=== PATIENT | female | born 1930 | race Caucasian/White ===

== ENCOUNTER 2016-11-24 15:54 | Inpatient (IN) | payer MEDICARE, OTHER ==
[~2016-11-24] VITALS: Ht 152.4 cm; Wt 37.9 kg
[2016-11-24 19:53] LABS: ADD SCAN DIFF NO
[2016-11-24 19:56] LABS: BASOPHILS % 0.3 % (0.0-2.0); EOSINOPHILS # 0.1 10^3/ul (0.0-0.5); EOSINOPHILS % 1.1 % (0.0-7.0); HEMOGLOBIN 10.8 g/dl (12.0-16.0); LYMPHOCYTES # 2.8 10^3/ul (0.8-2.9); LYMPHOCYTES % 43.2 % (15.0-51.0); MEAN CORPUSCULAR HEMOGLOBIN 29.7 pg (29.0-33.0); MEAN CORPUSCULAR HGB CONC 30.9 g/dl (32.0-37.0); MEAN CORPUSCULAR VOLUME 96.2 fl (82.0-101.0); MEAN PLATELET VOLUME 9.3 fl (7.4-10.4); MONOCYTE # 0.4 10^3/ul (0.3-0.9); MONOCYTES % 5.9 % (0.0-11.0); NEUTROPHIL # 3.2 10^3/ul (1.6-7.5); NEUTROPHILS % 49.3 % (39.0-77.0); PLATELET COUNT 288 10^3/UL (140-415); RED BLOOD COUNT 3.64 10^6/ul (4.20-5.40); RED CELL DISTRIBUTION WIDTH 16.2 % (11.5-14.5); WHITE BLOOD COUNT 6.5 10^3/ul (4.8-10.8)
[2016-11-24] MEDS ORDERED: LEVO25TA53 PO (19:57)
[2016-11-24] MEDS ORDERED: AMLO5TAB4 PO (19:58)
[2016-11-24] MEDS ORDERED: ATEN-51 PO (19:58)
[2016-11-24] MEDS ORDERED: SULF1TAB31 PO (20:03)
[2016-11-24 20:08] LABS: INR 1.04; PROTIME 13.6 Sec (12.2-14.2); PT RATIO 1.1
[2016-11-24 20:12] LABS: ALBUMIN 4.1 g/dl (3.3-4.9); CALCIUM 9.2 mg/dl (8.4-10.2); CREATININE 1.98 mg/dl (0.44-1.00); TOTAL PROTEIN 8.2 g/dl (6.1-8.1)
--- NOTE | 2016-11-24 20:14 | RADRPT ---
PROCEDURE: XR Chest. CLINICAL INDICATION: Abdominal pain TECHNIQUE: Chest PA and lateral COMPARISON: 04/18/2007 FINDINGS: The mediastinal structures are unremarkable. There is calcification of the thoracic aorta (consiste nt with atherosclerosis). The heart is normal in size and configuration. The pulmonary vascularity is normal. There is mild left diaphragmatic elevation. The lung galaviz are unremarkable. No consol idation is identified. The pleural spaces are unremarkable. There are senescent changes of the axi al skeleton. IMPRESSION: Calcification of the thoracic aorta (consistent with atherosclerosis). No evidence for active cardiopulmonary disease. RPTAT: HGDB .Joe Pathak MD, MD Date Time Electronically viewed and signed by .Joe Pathak MD, on 11/24/2016 20:13 .B/
[2016-11-24 20:23] LABS: TROPONIN-I 0.016 ng/ml (0.00-0.12)
[2016-11-24 20:28] LABS: POTASSIUM 8.1 mmol/L (3.5-5.1)
[2016-11-24] MEDS ORDERED: SOD CHLORIDE 0.9% 1,000 ML IV STA (20:28)
[2016-11-24] MEDS ORDERED: ALBUTEROL 0.5% (NEB) 2.5 MG/0.5 ML AMP INH STA (20:28)
[2016-11-24] MEDS ORDERED: NA POLYST SULFON 15 GM/60 ML BTL PO STA (20:28)
[2016-11-24] MEDS ORDERED: FUROSEMIDE 40 MG INJ IV STA (20:28)
[2016-11-24] MEDS ORDERED: NA BICARBONATE 8.4% 50 ML SYG IV STA (20:28)
[2016-11-24] MEDS ORDERED: CA CHLORIDE 10% 10 ML SYRINGE IV STA (20:28)
[2016-11-24] MEDS ORDERED: hydrALAzine 20 MG INJ IV ONE (20:30)
[2016-11-24 20:31] LABS: ADD UMIC NO; URINE BILIRUBIN (Dip) NEGATIVE (NEGATIVE); URINE BLOOD (Dip) NEGATIVE (NEGATIVE); URINE COLOR LT. YELLOW (YELLOW); URINE GLUCOSE (Dip) NEGATIVE (NEGATIVE); URINE KETONES (Dip) NEGATIVE (NEGATIVE); URINE LEUKOCYTE ESTERASE (Dip) NEGATIVE (NEGATIVE); URINE NITRITE (Dip) NEGATIVE (NEGATIVE); URINE TOTAL PROTEIN (Dip) NEGATIVE (NEGATIVE); URINE UROBILINOGEN (Dip) 0.2 E.U./dL (0.1-1.0)
--- NOTE | 2016-11-24 21:02 | ERA ---
ER Documentation Chief Complaint Date/Time DATE: 11/24/16 TIME: 20:46 Chief Complaint ABNORMAL LAB SENT BY MD MARTINEZ This is an 86-year-old Italian-speaking female that was brought into the emergency department by her son who helps her to attend to her activities of daily living. The patient's son indicated that 2 days ago on September 25, 2016 at [facility] the patient had routine lab work performed. The son received a call today from the nurse at the patient's primary care physician office that indicated she immediately needed to go to the emergency department to be further evaluated for an elevated potassium of 7.0. The son indicates that the patient has not complained of any frequency urgency or dysuria. She has not complained of chest pain or pressure. She has had no shortness of breath at rest or exertion. He does indicate she has had a decrease in appetite but has been consuming water without any difficulty. Indicates she has no history of hyperkalemia in the past. She has history of hypertension and has been compliant with her medications. The patient has difficulty walking and can only use a wheelchair as she can normally only ambulates a few steps with assistance. The son indicates the patient has very mild dementia but recognizes her son and will answer questions appropriately at baseline. ROS All systems reviewed and are negative except as per history of present illness. Medications Home Meds Reported Medications Sulfamethoxazole/Trimethoprim* (Bactrim Ds* Tablet) 1 Each Tablet, 160 MG PO BID , TAB 800/160MG 11/24/16 Amlodipine Besylate* (Norvasc*) 5 Mg Tablet, 5 MG PO DAILY, TAB 11/24/16 Atenolol* (Atenolol*) 25 Mg Tablet, 25 MG PO BID, #60 TAB 11/24/16 Levothyroxine Sodium* (Levothyroxine Sodium*) 25 Mcg Tablet, 25 MCG PO BEFORE BREAKFAST, #30 TAB 11/24/16 Allergies Allergies: Coded Allergies: Penicillins (Verified Allergy, Mild, RASHN DIFF BREATHING, 11/24/16) PMhx/Soc History of Surgery: No Anesthesia Reaction: No Hx Neurological Disorder: No Hx Respiratory Disorders: No Hx Cardiac Disorders: Yes (HTN) Hx Psychiatric Problems: No Hx Miscellaneous Medical Probl: No Hx Alcohol Use: No Hx Substance Use: No Hx Tobacco Use: No Smoking Status: Never smoker Physical Exam Vitals Vital Signs Date Time Temp Pulse Resp B/P Pulse Ox O2 Delivery O2 Flow Rate FiO2 11/24/16 15:57 98.9 57 18 131/54 98 Physical Exam Constitutional:Well-developed. Cachectic female HEENT:Normocephalic. Atraumatic.Pupils were equal round reactive to light. Very dry mucous membranes.No tonsillar exudates. Fundoscopy exam showed sharp optic disc bilaterally venous pulsations are present. Neck: No nuchal rigidity. No lymphadenopathy. No posterior cervical spine tenderness or step-offs. Respiratory: Not using accessory muscles of respiration.Lungs were clear to auscultation bilaterally. No rhonchi. No rales. No wheezing. Cardiovascular: Regular rate regular rhythm.No murmurs. No rubs were appreciated.S1, S2 normal. Distal pulses are palpable 2+ bilaterally. GI: Abdomen was soft. Nontender. Non Distended. No pulsatile abdominal masses or bruits. No rebound. No guarding. Bowel sounds were present and normal. Muscle skeletal: Full range of motion of both the upper and lower extremities bilaterally. Muscle atrophy Skin: No petechia, no purpura. No lesions on the palms or the soles of the feet. No maculopapular rash. NEURO: Patient is bedbound. Follows simple verbal command and only speaks Italian. Lying supine with her eyes closed but opens response to pain. Result Diagram: 11/24/16174911/24/161749 Results 24 hrs Laboratory Tests Test 11/24/16 17:50 11/24/16 19:50 White Blood Count 6.510^3/ul Red Blood Count 3.6410^6/ul Hemoglobin 10.8g/dl Hematocrit 35.0% Mean Corpuscular Volume 96.2fl Mean Corpuscular Hemoglobin 29.7pg Mean Corpuscular Hemoglobin Concent 30.9g/dl Red Cell Distribution Width 16.2% Platelet Count 83639^3/UL Mean Platelet Volume 9.3fl Neutrophils % 49.3% Lymphocytes % 43.2% Monocytes % 5.9% Eosinophils % 1.1% Basophils % 0.3% Nucleated Red Blood Cells % 0.0/100WBC Neutrophils # 3.210^3/ul Lymphocytes # 2.810^3/ul Monocytes # 0.410^3/ul Eosinophils # 0.110^3/ul Basophils # 0.010^3/ul Nucleated Red Blood Cells # 0.010^3/ul Prothrombin Time 13.6Sec Prothrombin Time Ratio 1.1 INR International Normalized Ratio 1.04 Activated Partial Thromboplast Time 32.0Sec Sodium Level 134mmol/L Potassium Level 8.1mmol/L Chloride Level 113mmol/L Carbon Dioxide Level 15mmol/L Anion Gap 14 Blood Urea Nitrogen 45mg/dl Creatinine 1.98mg/dl Glucose Level 70mg/dl Calcium Level 9.2mg/dl Total Bilirubin 0.0mg/dl Direct Bilirubin 0.00mg/dl Indirect Bilirubin 0.0mg/dl Aspartate Amino Transf (AST/SGOT) 29IU/L Alanine Aminotransferase (ALT/SGPT) 29IU/L Alkaline Phosphatase 109IU/L Troponin I 0.016ng/ml Total Protein 8.2g/dl Albumin 4.1g/dl Globulin 4.10g/dl Albumin/Globulin Ratio 1.00 Urine Color LT. YELLOW Urine Clarity CLEAR Urine pH 5.5 Urine Specific [place] 1.025 Urine Ketones NEGATIVE Urine Nitrite NEGATIVE Urine Bilirubin NEGATIVE Urine Urobilinogen 0.2 E.U./dL Urine Leukocyte Esterase NEGATIVE Urine Hemoglobin NEGATIVE Urine Glucose NEGATIVE% Urine Total Protein NEGATIVE Current Medications Medications (Trade) Dose Ordered Sig/Emily Route PRN Reason Start Time Stop Time Status Last Admin Dose Admin Hydralazine HCl (Apresoline) 5 mg ONCE ONCE IV 11/24/16 20:30 11/24/16 20:43 DC Furosemide (Lasix) 40 mg ONCE STAT IV 11/24/16 20:28 11/24/16 20:30 DC 11/24/16 20:42 Sodium Polystyrene Sulfonate (Kayexalate) 30 gm ONCE STAT PO 11/24/16 20:28 11/24/16 20:30 DC 11/24/16 20:41 Albuterol (Proventil 0.5% (Neb)) 15 mg ONCE STAT INH 11/24/16 20:28 11/24/16 20:30 DC Sodium Bicarbonate 50 ml 50 ml ONCE STAT IV 11/24/16 20:28 11/24/16 20:30 DC 11/24/16 20:42 Sodium Chloride (NS) 1,000 ml @ 1,000 mls/hr Q1H STAT IV 11/24/16 20:28 11/24/16 21:27 11/24/16 20:43 Calcium Chloride (Ca Chloride 10% Syg) 1,000 mg ONCE STAT IV 11/24/16 20:28 11/24/16 20:30 DC 11/24/16 20:42 Procedures/MDM This patient presented to the emergency department with abnormal ancillary laboratory work and was immediately placed in a monitoring analyst continuous pulse oximetry and IV access was established by nursing staff. The patient appeared to be clinically dehydrated and was given a liter bolus of 0.9 normal saline The patient had an elevated potassium of 8.1. The patient was treated for hyperkalemia given an amp of calcium chloride, an amp of bicarb, Kayexalate, IV Lasix and albuterol. The patient had acute kidney injury with no history of renal failure in the past but did not require emergent hemodialysis at this time 12 Lead EKG tracing ordered and reviewed by myself showed: Sinus bradycardia 59 bpm and no arrhythmia. FL interval normal. QRS duration normal. No ST segment elevation No ST segment depression. No changes consistent with acute ischemia. The patient will be admitted in serious condition with an anticipated stay of greater than 2 midnights under the care of the hospitalist Dr. Wyman to the telemetry service. Departure Diagnosis: Primary Impression: Hyperkalemia Additional Impression: Acute kidney injury Condition: Serious HERMELINDOLIZETHA Nov 24, 2016 20:57
--- NOTE | 2016-11-24 21:15 | HP ---
Date/Time of Note Date/Time of Note DATE: 11/24/16 TIME: 21:14 Assessment/Plan VTE Prophylaxis VTE Prophylaxis Intervention: anti-embolic stocking Assessment/Plan Assessment/Plan 1) Hyperkalemia - Admit to Telemetry - Monitor - Repeat Labs prn and Treat with Kayexalate until potassium level normalizes. ( NOTE: Blood was being drawn while I saw the patient, just now, so I will cancel the 2300 Lytes I ordered and await theses results to see the effect of the first Kayexalate dose.) - Magnesium added on 2) Acute kidney injury with elevated BUN and Creatinine, 45 and 1.98, but not sure of significance of the elevated Creatinine in this elderly, cachectic woman - CONSULT: Nephrology - Renal Diet 3) Cachexia with adequate Albumin and Gobulin - Prealbumin added on - CHD Profile in AM 4) Anemia, Mild, Hgb 10.8, Normochromic, Normocytic - Monitor - No specific action needed at this time 5) Hyponatremia, mild -- Expected to auto-correct HPI/ROS Admit Date/Time Admit Date/Time 11/24/16 2102 Hx of Present Illness This is an 86-year-old Sinhala-speaking female who is bedbound and lives with her son. She had blood tests done 2 days ago as an outpatient and was called to come to the ER for further evaluation. Her son brought her in, but he is no longer present, so the majority of my history is from the ER physician. The son received a call today from the nurse at the patient's primary care physician office that indicated she immediately needed to go to the emergency department to be further evaluated for an elevated potassium of 7.0. The son indicates that the patient has not complained of any frequency urgency or dysuria. She has not complained of chest pain or pressure. She has had no shortness of breath at rest or exertion. He does indicate she has had a decrease in appetite but has been consuming water without any difficulty. Indicates she has no history of hyperkalemia in the past. She has history of hypertension and has been compliant with her medications. The patient has difficulty walking and can only use a wheelchair as she can normally only ambulates a few steps with assistance. The son indicates the patient has very mild dementia but recognizes her son and will answer questions appropriately at baseline.This patient presented to the emergency department with abnormal ancillary laboratory work and was immediately placed in a identification clerk continuous pulse oximetry and IV access was established by nursing staff. The patient appeared to be clinically dehydrated and was given a liter bolus of 0.9 normal saline. I am told by ER physician that patient would only answer questions posed to her by her son. ER Course per ER Physician: The patient had an elevated potassium of 8.1. The patient was treated for hyperkalemia given an amp of calcium chloride, an amp of bicarb, Kayexalate, IV Lasix and albuterol. The patient had acute kidney injury with no history of renal failure in the past but did not require emergent hemodialysis at this time The patient will be admitted in serious condition with an anticipated stay of greater than 2 midnights under the care of the hospitalist Dr. Brown to the telemetry service. ROS ROS as per HPI, although I did get patient to answer a couple of questions for me when I spoke to her in Sinhala after introducing myself. She denies pain and nausea. No chest pain. No headache. PMH/Family/Social Past Medical History Medical History: hypertension Past Surgical History Past Surgical Hx: no surgical history Social History Alcohol Use: none Smoking Status: Never smoker Drug Use: none Exam/Review of Systems Vital Signs Vitals Vital Signs Date Time Temp Pulse Resp B/P Pulse Ox O2 Delivery O2 Flow Rate FiO2 11/24/16 15:57 98.9 57 18 131/54 98 Exam Exam General: elderly, cachectic femaler, alert, in no acute distress. Answers a few direct questions appropriately. Eyes: Sclera White, EOMI HENT: Normocephalic/Atraumatic, External Ears/Nose Normal, Moist Mucus Membranes Neck: Supple, Trachea Midline Cardiovascular: Normal Rate, Regular Rhythm, Normal S1 and S2, No Murmur, No Extra Sounds. Radial pulse +2/4. No pedal Edema. Pulmonary: Clear to Auscultation Bilaterally, Normal Respiratory Effort, No Rales, Rhonchi or Wheezes Gastrointestinal: Scaphoid, Normoactive Bowel Sounds, Soft, Non-Tender/Non- Distended, No Hepatosplenomegaly Appreciated, No Pulsatile Masses Urogenital: Deferred Musculoskeletal: Decreased Muscle Bulk and Tone Neurological: CN II - XII Grossly Intact, Non-Focal, Speech Normal Integumentary: Normal Moisture and Temperature, Fair Turgor, No Jaundice, No Rash Lymphatic: No Cervical Lymphadenopathy Psychiatric: Appropriate Mood and Affect, Good Eye Contact Labs Result Diagram: 11/24/16174911/24/16 175 Medications Medications Home Meds Reported Medications Sulfamethoxazole/Trimethoprim* (Bactrim Ds* Tablet) 1 Each Tablet, 160 MG PO BID , TAB 800/160MG 11/24/16 Amlodipine Besylate* (Norvasc*) 5 Mg Tablet, 5 MG PO DAILY, TAB 11/24/16 Atenolol* (Atenolol*) 25 Mg Tablet, 25 MG PO BID, #60 TAB 11/24/16 Levothyroxine Sodium* (Levothyroxine Sodium*) 25 Mcg Tablet, 25 MCG PO BEFORE BREAKFAST, #30 TAB 11/24/16 Current Medications Medications (Trade) Dose Ordered Sig/Emily Route PRN Reason Start Time Stop Time Status Last Admin Dose Admin Hydralazine HCl (Apresoline) 5 mg ONCE ONCE IV 11/24/16 20:30 11/24/16 20:43 DC Furosemide (Lasix) 40 mg ONCE STAT IV 11/24/16 20:28 11/24/16 20:30 DC 11/24/16 20:42 Sodium Polystyrene Sulfonate (Kayexalate) 30 gm ONCE STAT PO 11/24/16 20:28 11/24/16 20:30 DC 11/24/16 20:41 Albuterol (Proventil 0.5% (Neb)) 15 mg ONCE STAT INH 11/24/16 20:28 11/24/16 20:30 DC Sodium Bicarbonate 50 ml 50 ml ONCE STAT IV 11/24/16 20:28 11/24/16 20:30 DC 11/24/16 20:42 Sodium Chloride (NS) 1,000 ml @ 1,000 mls/hr Q1H STAT IV 11/24/16 20:28 11/24/16 21:27 11/24/16 20:43 Calcium Chloride (Ca Chloride 10% Syg) 1,000 mg ONCE STAT IV 11/24/16 20:28 11/24/16 20:30 DC 11/24/16 20:42 Procedures Procedures Laboratory Tests Test 11/24/16 17:50 11/24/16 19:50 White Blood Count 6.510^3/ul Red Blood Count 3.6410^6/ul Hemoglobin 10.8g/dl Hematocrit 35.0% Mean Corpuscular Volume 96.2fl Mean Corpuscular Hemoglobin 29.7pg Mean Corpuscular Hemoglobin Concent 30.9g/dl Red Cell Distribution Width 16.2% Platelet Count 69311^3/UL Mean Platelet Volume 9.3fl Neutrophils % 49.3% Lymphocytes % 43.2% Monocytes % 5.9% Eosinophils % 1.1% Basophils % 0.3% Nucleated Red Blood Cells % 0.0/100WBC Neutrophils # 3.210^3/ul Lymphocytes # 2.810^3/ul Monocytes # 0.410^3/ul Eosinophils # 0.110^3/ul Basophils # 0.010^3/ul Nucleated Red Blood Cells # 0.010^3/ul Prothrombin Time 13.6Sec Prothrombin Time Ratio 1.1 INR International Normalized Ratio 1.04 Activated Partial Thromboplast Time 32.0Sec Sodium Level 134mmol/L Potassium Level 8.1mmol/L Chloride Level 113mmol/L Carbon Dioxide Level 15mmol/L Anion Gap 14 Blood Urea Nitrogen 45mg/dl Creatinine 1.98mg/dl Glucose Level 70mg/dl Calcium Level 9.2mg/dl Total Bilirubin 0.0mg/dl Direct Bilirubin 0.00mg/dl Indirect Bilirubin 0.0mg/dl Aspartate Amino Transf (AST/SGOT) 29IU/L Alanine Aminotransferase (ALT/SGPT) 29IU/L Alkaline Phosphatase 109IU/L Troponin I 0.016ng/ml Total Protein 8.2g/dl Albumin 4.1g/dl Globulin 4.10g/dl Albumin/Globulin Ratio 1.00 Urine Color LT. YELLOW Urine Clarity CLEAR Urine pH 5.5 Urine Specific [place] 1.025 Urine Ketones NEGATIVE Urine Nitrite NEGATIVE Urine Bilirubin NEGATIVE Urine Urobilinogen 0.2 E.U./dL Urine Leukocyte Esterase NEGATIVE Urine Hemoglobin NEGATIVE Urine Glucose NEGATIVE% Urine Total Protein NEGATIVE EKG: Interpreted by ER Physician Sinus bradycardia 59 bpm and no arrhythmia. MD interval normal. QRS duration normal. No ST segment elevation No ST segment depression. No changes consistent with acute ischemia. PROCEDURE: XR Chest. CLINICAL INDICATION: Abdominal pain TECHNIQUE: Chest PA and lateral COMPARISON: 04/18/2007 FINDINGS: The mediastinal structures are unremarkable. There is calcification of the thoracic aorta (consistent with atherosclerosis). The heart is normal in size and configuration. The pulmonary vascularity is normal. There is mild left diaphragmatic elevation. The lung galaviz are unremarkable. No consolidation is identified. The pleural spaces are unremarkable. There are senescent changes of the axial skeleton. IMPRESSION: Calcification of the thoracic aorta (consistent with atherosclerosis). No evidence for active cardiopulmonary disease. JULIANNA BROWN DO Nov 24, 2016 21:14 Psychiatric: Appropriate Mood and Affect, Good Eye Contact Labs Result Diagram: 11/24/16 1750 11/24/16 1750 Procedures Procedures PROCEDURE: XR Chest. CLINICAL INDICATION: Abdominal pain TECHNIQUE: Chest PA and lateral COMPARISON: 04/18/2007 FINDINGS: The mediastinal structures are unremarkable. There is calcification of the thoracic aorta (consistent with atherosclerosis). The heart is normal in size and configuration. The pulmonary vascularity is normal. There is mild left diaphragmatic elevation. The lung galaviz are unremarkable. No consolidation is identified. The pleural spaces are unremarkable. There are senescent changes of the axial skeleton.
[2016-11-24] MEDS ORDERED: NITROGLYCERIN (SL) 0.4 MG TAB SL PRN (21:30)
[2016-11-24] MEDS ORDERED: LORAZEPAM 2 MG INJ IV PRN (21:30)
[2016-11-24] MEDS ORDERED: ACETAMINOPHEN 325 MG TAB PO PRN ×2 (21:30)
[2016-11-24] MEDS ORDERED: ONDANSETRON 4 MG INJ IV PRN (21:30)
[2016-11-24] MEDS ORDERED: NACL 0.9% 3 ML SYG IV SCH (21:30)
[2016-11-24] MEDS ORDERED: HYDROCODONE/APAP (5/325) TAB PO PRN (21:30)
[2016-11-24 21:46] LABS: MODE ROOM AIR; MetHgb Venous 0.7 %; Sample Type Blood venous; Venous COHb 0.6 %; Venous Fraction OxyHgb 58.2 %; Venous Total Hemglobin 11.1 g/dl
[2016-11-24 22:40] VITALS: TEMP 97.2
[2016-11-25] VITALS (11 sets, daily range): BP systolic 107–177; BP diastolic 54–78; PULSE 52–78; RESP 17–19
[2016-11-25] MEDS: LEVOTHYROXINE 25 MCG TAB PO SCH (07:00)
[2016-11-25 07:35] LABS: ADD SCAN DIFF NO
[2016-11-25 07:42] LABS: BASOPHILS % 0.4 % (0.0-2.0); EOSINOPHILS % 0.6 % (0.0-7.0); HEMOGLOBIN 9.6 g/dl (12.0-16.0); LYMPHOCYTES % 28.7 % (15.0-51.0); MEAN CORPUSCULAR HEMOGLOBIN 30.1 pg (29.0-33.0); MEAN PLATELET VOLUME 9.8 fl (7.4-10.4); MONOCYTE # 0.4 10^3/ul (0.3-0.9); MONOCYTES % 6.3 % (0.0-11.0); NEUTROPHIL # 4.3 10^3/ul (1.6-7.5); NEUTROPHILS % 63.6 % (39.0-77.0); PLATELET COUNT 247 10^3/UL (140-415); RED BLOOD COUNT 3.19 10^6/ul (4.20-5.40); RED CELL DISTRIBUTION WIDTH 16.2 % (11.5-14.5); WHITE BLOOD COUNT 6.8 10^3/ul (4.8-10.8)
[2016-11-25 08:10] LABS: POTASSIUM 5.7 mmol/L (3.5-5.1)
[2016-11-25 08:12] LABS: CREATININE 1.9 mg/dl (0.44-1.00)
[2016-11-25 08:13] LABS: CALCIUM 9.8 mg/dl (8.4-10.2)
[2016-11-25] MEDS: AMLODIPINE 5 MG TAB PO SCH (09:00)
[2016-11-25] MEDS: ATENOLOL 25 MG TAB PO SCH ×2 (09:00→20:51)
[2016-11-25] MEDS: FAMOTIDINE 20 MG TAB PO SCH (09:00)
[2016-11-25] MEDS ORDERED: hydrALAzine 20 MG INJ IV PRN (10:30)
--- NOTE | 2016-11-25 11:51 | CONS ---
DATE OF ADMISSION: 11/24/2016 DATE OF CONSULTATION: 11/25/2016 TYPE OF CONSULTATION: Nephrology. REASON FOR CONSULTATION: Acute kidney injury, hyperkalemia. REQUESTING PHYSICIAN: Dr. Guzman HISTORY OF PRESENT ILLNESS: This is an 86-year-old female with a past medical history of hypertensi on, hypothyroidism who presents to [facility] Emergency Room due to abnormal labs. The pat mena's history was obtained by reviewing medical records and speaking to hospital staff. The patien t herself is confused, unable to provide history and the patient's son currently is unable to be travis ched. Apparently, the patient's son indicated that 2 days ago the patient had routine laboratory wo rk done and she received a call from her primary care physician saying she needed to go to the emerg ency room due to significant hyperkalemia. The patient stated that she was recently placed on antib iotic therapy for a UTI. The patient herself denied any chest pain, shortness of breath, dyspnea on exertion. The patient as a result came into the emergency room. Upon arrival, patient was noted t o be hyperkalemic with a potassium level of 8.1. The patient in the emergency room was given calciu m gluconate, Kayexalate was given, sodium bicarbonate, diuretic therapy and IV fluids. The patient was subsequently admitted to telemetry, repeat potassium level showed 5.7 over the course of 24 hour s. The patient had no reports of hemoptysis, hematemesis or hematochezia. In terms of the patient's renal history, the patient's baseline renal function is unknown. Her rece nt creatinine from 11/15/2016 showed a BUN of 46, a creatinine 1.61. Patient has history of hyperte nsion. No known history of diabetes. There have been no reported episodes of hemoptysis, hematemes is or hematochezia as stated above. No rashes, no dysuria or frothy urine. PAST MEDICAL HISTORY: History of hypertension, history of hypothyroidism and recent history of UTI. ALLERGIES: PENICILLIN. FAMILY HISTORY: Noncontributory. SOCIAL HISTORY: Does not drink, smoke or do drugs. PAST SURGICAL HISTORY: Unknown. MEDICATIONS: Patient medications have been reviewed. REVIEW OF SYSTEMS: Limited review of systems due to patient's altered mental state; however, pertin ent positives as obtained by reviewing medical records and speaking to hospital staff, stated in HPI , otherwise negative. PHYSICAL EXAMINATION: VITAL SIGNS: Blood pressure 125/78, respiration 18, pulse 73, temperature 97.9. HEENT: Head is normocephalic. NECK: Supple. HEART: Regular rate. LUNGS: Show diminished breath sounds at base. ABDOMEN: Soft, nontender to palpation without rebound or guarding. EXTREMITIES: Negative for clubbing, cyanosis, no edema. DERMATOLOGIC: No rashes. MUSCULOSKELETAL: No joint effusions. NEUROLOGIC: No focal deficits, Patient medications reviewed. LABORATORY DATA: Shows sodium 142 potassium 5.7, chloride 113, bicarbonate 18, BUN 46, creatinine 1.90, white count 6.8, hemoglobin 9.6, hematocrit 30.0, platelet count 247. Chest x-ray shows no ac jono findings. ASSESSMENT AND PLAN: This is an 86-year-old female who presents with: 1. Nonoliguric acute kidney injury with unknown baseline creatinine. Etiology of current acute kid [place] injury appears to be multifactorial secondary to hemodynamics, Bactrim effect. The patient's in itial urinalysis shows no active sediment; therefore, low suspicion for acute glomerulonephritis, va sculitis or interstitial nephritis. Plan at this point is to check a renal ultrasound to rule out o bstruction. Will repeat urinalysis. Will check urine electrolytes, calculate FENa. We would recom mend to hold Bactrim. Will give the patient gentle IV hydration with normal saline at 50 mL an hour . Will monitor renal function closely. There is no immediate need for renal replacement therapy at this time. However, if the patient's hyperkalemia cannot be controlled medically, will consider st arting dialysis. 2. Hyperkalemia. Etiology is likely multifactorial, secondary to Bactrim effect in conjunction wit h acute kidney injury and high potassium diet. The patient's potassium levels have improved with Ka yexalate. Plan at this point is to start the patient on IV hydration. Will monitor serum potassium levels. There is no immediate need for renal replacement therapy at this time, as potassium levels have been improving. However, if the patient's hyperkalemia should remain elevated, would consider dialysis. 3. Metabolic acidosis secondary to acute kidney injury. The patient's bicarbonate levels have impr nunu after being given sodium bicarbonate. Will continue to monitor. Will check an ABG to see if t here is any evidence of significant acidemia. If present, would consider a bicarbonate drip. 4. Mineral bone disorder. Monitor calcium and phosphorus levels. 5. Acute encephalopathy, etiology unclear, questionable uremia. Will continue to monitor closely. 6. Mild hyponatremia, resolved. Thank you, Dr. Guzman, for this interesting consultation. It will be a pleasure to follow patient with you throughout the hospital course. Dictated By: MEGGAN KUMAR/AYAKA Conf#: [id number] DID#: [id number]
[2016-11-25 12:25] LABS: ADD UMIC NO; URINE BILIRUBIN (Dip) NEGATIVE (NEGATIVE); URINE BLOOD (Dip) NEGATIVE (NEGATIVE); URINE COLOR LT. YELLOW (YELLOW); URINE GLUCOSE (Dip) NEGATIVE (NEGATIVE); URINE KETONES (Dip) NEGATIVE (NEGATIVE); URINE LEUKOCYTE ESTERASE (Dip) NEGATIVE (NEGATIVE); URINE NITRITE (Dip) NEGATIVE (NEGATIVE); URINE TOTAL PROTEIN (Dip) NEGATIVE (NEGATIVE); URINE UROBILINOGEN (Dip) 0.2 E.U./dL (0.1-1.0)
[2016-11-25] MEDS: SOD CHLORIDE 0.9% 1,000 ML IV SCH (12:39)
--- NOTE | 2016-11-25 14:49 | RADRPT ---
Vent Rate: 70 bpm RR Interval: 0 msec NH Interval: 0 msec QRS Duration: 84 msec QT Interval: 382 msec QTC Interval: 412 msec P-R-T [place]: 0 - 45 - 75 degrees NSR normal ECG No previous tracing available for comparison Electronically Signed By: Paul Echeverria [id number]
[2016-11-25 15:57] LABS: AADO2 Arterial 23.6 mmHg (7.0-24.0); Arterial Base Excess -7.7 mmol/L (-3.0-3); Arterial COHb 0.3 % (0.0-3.0); Arterial HCO3 17.3 mmol/L (22.0-26.0); Arterial MetHb 0.4 % (0.0-1.5); Arterial Total Hemglobin 9.7 g/dl (12.0-18.0); MODE ROOM AIR
--- NOTE | 2016-11-25 16:41 | RADRPT ---
PROCEDURE: Retroperitoneal US. CLINICAL INDICATION: Renal insufficiency TECHNIQUE: Multiple sonographic images of the kidneys and retroperitoneum were obtained. The imag es were reviewed on a PACS workstation. COMPARISON: No prior studies are available for comparison. FINDINGS: The kidneys are normal in contour, cortical thickness and cortical echogenicity. The right kidney measures 7.8 cm. The left kidney measures 8.1 cm. No kidney stones are visualized. There is mild bilateral hydronephrosis. The urinary bladder is decompressed by Patricio catheter. RPTAT: AA IMPRESSION: Mild bilateral hydronephrosis. Small kidneys. .Lucio Todd MD, MD Date Time Electronically viewed and signed by .Lucio Todd MD, on 11/25/2016 16:40 .S/
[2016-11-25 17:00] LABS: POTASSIUM 4.7 mmol/L (3.5-5.1)
[2016-11-25 17:02] LABS: CREATININE 1.8 mg/dl (0.44-1.00)
[2016-11-26] VITALS (12 sets, daily range): BP systolic 97–156; BP diastolic 50–82; PULSE 64–79; RESP 16–19
[2016-11-26] MEDS: SOD CHLORIDE 0.9% 1,000 ML IV SCH (06:20)
[2016-11-26] MEDS: LEVOTHYROXINE 25 MCG TAB PO SCH (06:21)
[2016-11-26 07:49] LABS: POTASSIUM 4.6 mmol/L (3.5-5.1)
[2016-11-26 07:51] LABS: CREATININE 1.17 mg/dl (0.44-1.00)
[2016-11-26 07:52] LABS: CALCIUM 8.5 mg/dl (8.4-10.2); PHOSPHORUS 3.4 mg/dl (2.5-4.9)
[2016-11-26 07:53] LABS: ADD SCAN DIFF NO; MAGNESIUM 1.6 mg/dl (1.7-2.5)
[2016-11-26 07:55] LABS: HEMATOCRIT 28.8 % (37.0-47.0); HEMOGLOBIN 9.1 g/dl (12.0-16.0); MEAN CORPUSCULAR HEMOGLOBIN 29.9 pg (29.0-33.0); MEAN CORPUSCULAR HGB CONC 31.6 g/dl (32.0-37.0); MEAN CORPUSCULAR VOLUME 94.7 fl (82.0-101.0); MEAN PLATELET VOLUME 9.7 fl (7.4-10.4); PLATELET COUNT 226 10^3/UL (140-415); RED BLOOD COUNT 3.04 10^6/ul (4.20-5.40); RED CELL DISTRIBUTION WIDTH 16.4 % (11.5-14.5); WHITE BLOOD COUNT 6.6 10^3/ul (4.8-10.8)
[2016-11-26] MEDS: ATENOLOL 25 MG TAB PO SCH ×2 (09:15→21:05)
[2016-11-26] MEDS: AMLODIPINE 5 MG TAB PO SCH (09:15)
[2016-11-26] MEDS ORDERED: MAGNESIUM SULFATE 2 GM/50 ML 50 ML IVPB ONE (10:00)
[2016-11-26 10:23] LABS: EOSINOPHILS # 0.1 10^3/ul (0.0-0.5); LYMPHOCYTES # 2.4 10^3/ul (0.8-2.9); MONOCYTE # 0.2 10^3/ul (0.3-0.9); NEUTROPHIL # 3.5 10^3/ul (1.6-7.5)
[2016-11-26 10:24] LABS: PLATELET ESTIMATE PLT APPEAR ADEQUATE
--- NOTE | 2016-11-26 10:39 | PN ---
DATE: 11/26/2016 SUBJECTIVE: The patient is more alert. No other acute events noted. No hemoptysis, hematemesis or hematochezia. OBJECTIVE: VITAL SIGNS: Blood pressure 124/82, respiration 18, pulse 78, temperature 98.1. HEENT: Head is normocephalic. NECK: Supple. HEART: Regular rate. LUNGS: Show diminished breath sounds at base. ABDOMEN: Soft, nontender to palpation without rebound or guarding. EXTREMITIES: Negative for clubbing, cyanosis. No edema. DERMATOLOGIC: No rashes. MUSCULOSKELETAL: No joint effusions. NEUROLOGIC: No change in exam. MEDICATIONS: Reviewed. LABORATORY DATA: Shows sodium 144, potassium 4.7, chloride 117, BUN 34, creatinine 1.16, magnesium 1.6. White count 6.6, hemoglobin 9.1, hematocrit 28.8, platelet count 226. ABG shows pH 7.332, pCO 2 of 33. Urinalysis shows FENa greater than 1%. A renal ultrasound shows mild bilateral hydronephr osis, right kidney is 7.8 cm, left kidney 8.1. ASSESSMENT AND PLAN: 1. Nonoliguric acute kidney injury with unknown baseline creatinine. Etiology of acute kidney inju ry appears to be secondary to hemodynamics, volume depletion, Bactrim effect. The patient's urinaly sis shows no active sediment. The patient's renal ultrasound shows mild hydronephrosis, but no evid ence of overt obstruction. The patient's renal function has improved with IV fluids. At this point , we will continue current treatment plan. Continue IV hydration. Continue to monitor renal functi on closely. Otherwise, continue supportive care, renally dose all meds, and avoid nephrotoxins. 2. Hyperkalemia secondary to Bactrim effect, in conjunction with acute kidney injury. The patient' s potassium levels have normalized. Continue current medical management. Continue IV hydration. 3. Hypomagnesemia. We will replete magnesium sulfate. 4. Metabolic acidosis secondary to acute kidney injury. The patient's ABG was reviewed. No signif icant acidemia. Will continue to monitor. 5. Mineral bone disorder. Continue to monitor calcium and phosphorus post. 6. Acute encephalopathy. Etiology is likely multifactorial. The patient's mental status has impro debbi. Continue to monitor. 7. Mild hyponatremia, resolved. 8. Anemia. Continue to monitor hemoglobin and hematocrit levels. 9. Dysphagia. Consider swallow evaluation. Dictated By: MEGGAN KUMAR/AYAKA Conf#: [id number] DID#: [id number]
--- NOTE | 2016-11-26 11:11 | PN ---
DATE: 11/25/2016 SUBJECTIVE DATA: The patient's vital signs remained stable. The patient is confused. OBJECTIVE DATA: VITAL SIGNS: Temperature 97.9, pulse rate 52, respiratory rate 18, blood pressure 125/78, oxygen saturation 97% on room air. GENERAL: This is a thin, frail-looking female lying in bed in no apparent distress. HEENT: Head normocephalic and atraumatic. Eyes: Anicteric sclerae. Conjunctivae clear. ENT: Nasal septum is midline. Oral mucosa is dry. Poor dentition. Poor oral hygiene. NECK: Supple. No JVD noticed. RESPIRATORY: Bilaterally diminished breath sounds. No adventitious breath sounds heard. No use of accessory muscles of respiration. CARDIAC: Regular rate and rhythm. S1 and S2 heard. ABDOMEN: Scaphoid. Soft. Bowel sounds hypoactive in all 4 quadrants. GENITOURINARY: Deferred. EXTREMITIES: No cyanosis, no clubbing, no edema. Peripheral pulses palpable. NEUROLOGIC: The patient is awake. Incomprehensible speech. LABORATORY AND DIAGNOSTIC DATA: WBC 6.8, hemoglobin 9.6, hematocrit 30.0, platelet count 247. Sodium 142, potassium 5.7, chloride 113, carbon dioxide 18 , anion gap 17, BUN 46, creatinine 1.9, glucose 126, calcium 9.8, magnesium 1.8. ASSESSMENT & PLAN 1. Hyperkalemia. Improved with potassium exchange resins, IV sodium bicarbonate and calcium chloride. Nephrology following. 2. Acute kidney injury. Etiology unclear. This could be from a prerenal azotemia and dehydration from the patient's poor oral intake. Nephrology following the patient. We will avoid nephrotoxic medications. 3. Essential hypertension. Continue routine antihypertensives and p.r.n. antihypertensives for any systolic blood pressure readings greater than 160 mmHg. 4. Dysphagia. pending evaluation by speech therapy. Aspiration precautions. 5. Hypothyroidism. Continue Synthroid if able to tolerate oral intake. 6. Severe muscle wasting. Although, no evidence of hypoalbuminemia. The patient is severely malnourished. A dietary consult will be ordered. compensator worker consult will be ordered to evaluate for possible underlying adult neglect. 7. Normocytic, normochromic anemia. Etiology unclear. Monitor H&H closely. We will obtain an iron panel. 8. Fluid, electrolytes and nutrition. Continue IV fluids. NPO. 9. Deep venous thrombosis prophylaxis. Bilateral sequential compression devices. 10. Gastrointestinal prophylaxis. Histamine 2 receptor blockers. 11. Plan. Continue telemetry monitoring. The management of hyperkalemia as per nephrology. Replete magnesium. The case was discussed with Dr. Jade. MALACHI JADE MD, AM/AYAKA Conf#: [id number] DID#: [id number] MTDD
--- NOTE | 2016-11-26 12:15 | PN ---
Date/Time of Note Date/Time of Note DATE: 11/26/16 TIME: 12:14 Assessment/Plan VTE Prophylaxis VTE Prophylaxis Intervention: SCD's Lines/Catheters IV Catheter Type (from Nrs): Peripheral IV Urinary Cath still in place: Yes Reason Cath still needed: other (indicate) Assessment/Plan Chief Complaint/Hosp Course 1. Hyperkalemia. Improved with potassium exchange resins, IV sodium bicarbonate and calcium chloride. Nephrology following. 2. Acute kidney injury. Etiology unclear. This could be from a prerenal azotemia and dehydration from the patient's poor oral intake. Nephrology following the patient. We will avoid nephrotoxic medications. 3. Essential hypertension. Continue routine antihypertensives and p.r.n. antihypertensives for any systolic blood pressure readings greater than 160 mmHg. 4. Dysphagia. Status post evaluation by speech therapy. Pured diet. Aspiration precautions. 5. Hypothyroidism. Continue Synthroid if able to tolerate oral intake. 6. Severe muscle wasting. Although, no evidence of hypoalbuminemia. The patient is severely malnourished. A dietary consult will be ordered. early childhood worker consult will be ordered to evaluate for possible underlying adult neglect. 7. Normocytic, normochromic anemia. Etiology unclear. Monitor H&H closely. We will obtain an iron panel. 8. Fluid, electrolytes and nutrition. Continue IV fluids. Pured diet as tolerated. 9. Deep venous thrombosis prophylaxis. Bilateral sequential compression devices. 10. Gastrointestinal prophylaxis. Histamine 2 receptor blockers. 11. Plan. Continue telemetry monitoring. The management of hyperkalemia as per nephrology. Replete magnesium. The case was discussed with Dr. Guzman. Problems: Subjective 24 Hr Interval Summary Free Text/Dictation The patient was more awake in the morning. The patient was given pured diet. Exam/Review of Systems Vital Signs Vitals Vital Signs Date Time Temp Pulse Resp B/P Pulse Ox O2 Delivery O2 Flow Rate FiO2 11/26/16 12:03 97.7 72 18 156/62 99 11/24/16 22:40 Room Air Intake and Output 11/25/16 11/25/16 11/26/16 15:00 23:00 07:00 Intake Total 600 ml Output Total 400 ml 500 ml Balance -400 ml 100 ml Exam GENERAL: This is a thin, frail-looking female lying in bed in no apparent distress. HEENT: Head normocephalic and atraumatic. Eyes: Anicteric sclerae. Conjunctivae clear. ENT: Nasal septum is midline. Oral mucosa is dry. Poor dentition. Poor oral hygiene. NECK: Supple. No JVD noticed. RESPIRATORY: Bilaterally diminished breath sounds. No adventitious breath sounds heard. No use of accessory muscles of respiration. CARDIAC: Regular rate and rhythm. S1 and S2 heard. ABDOMEN: Scaphoid. Soft. Bowel sounds hypoactive in all 4 quadrants. GENITOURINARY: Deferred. EXTREMITIES: No cyanosis, no clubbing, no edema. Peripheral pulses palpable. NEUROLOGIC: The patient is awake. Confused. Incomprehensible speech. Results Result Diagram: 11/26/16 0645 11/26/16 0645 Results 24 hrs Laboratory Tests Test 11/25/16 15:55 11/26/16 06:45 Sodium Level 142 144 Potassium Level 4.7 4.6 Chloride Level 113 H 117 H Carbon Dioxide Level 19 L 20 L Anion Gap 15 12 Blood Urea Nitrogen 45 H 34 #H Creatinine 1.80 H 1.17 H Glucose Level 124 68 #L Calcium Level 9.0 8.5 White Blood Count 6.6 Red Blood Count 3.04 L Hemoglobin 9.1 L Hematocrit 28.8 L Mean Corpuscular Volume 94.7 Mean Corpuscular Hemoglobin 29.9 Mean Corpuscular Hemoglobin Concent 31.6 L Red Cell Distribution Width 16.4 H Platelet Count 226 Mean Platelet Volume 9.7 Neutrophils % 53.0 Lymphocytes % 36.0 Monocytes % 3.0 Eosinophils % 2.0 Basophils % Nucleated Red Blood Cells % 0.0 Neutrophils # 3.5 Lymphocytes # 2.4 Monocytes # 0.2 L Eosinophils # 0.1 Basophils # Nucleated Red Blood Cells # Platelet Estimate PLT APPEAR ADEQUATE Phosphorus Level 3.4 Magnesium Level 1.6 L Medications Medications Current Medications Lorazepam (Ativan) 0.5 mg Q6H PRN IV ANXIETY Last administered on 11/25/16t 02: 05; Admin Dose 0.5 MG; Start 11/24/16 at 21:30 Nitroglycerin (Nitroglycerin (Sl Tab) 0.4 Mg) 1 tab Q5M PRN SL CHEST PAIN; Start 11/24/16 at 21:30 Acetaminophen (Tylenol Tab) 650 mg Q6H PRN PO PAIN LEVEL 1-3 OR FEVER; Start at 21:30 Acetaminophen/ Hydrocodone Bitart ([place] (5/325)) 1 tab Q6H PRN PO PAIN LEVEL 4 -6; Start 11/24/16 at 21:30 Famotidine (Pepcid) 10 mg Q48H PO ; Start 11/25/16 at 09:00 Amlodipine Besylate (Norvasc) 5 mg DAILY PO Last administered on 11/26/16 09: 15; Admin Dose 5 MG; Start 11/25/16 at 09:00 Atenolol 25 mg 25 mg BID PO Last administered on 11/26/16 09:15; Admin Dose 25 MG; Start 11/25/16 at 09:00 Sodium Chloride (NS) 1,000 ml @ 50 mls/hr Q20H IV Last administered on 06:20; Admin Dose 50 MLS/HR; Start 11/25/16 at 10:30 Hydralazine HCl (Apresoline) 5 mg Q6H PRN IV SBP>160; Start 11/25/16 at 10:30 MALACHI CHAMBERLAIN NP Nov 26, 2016 12:15
--- NOTE | 2016-11-26 14:55 | RADRPT ---
PROCEDURE: XR Chest. CLINICAL INDICATION: Hyperkalemia. TECHNIQUE: PA and Lateral views of the chest were obtained. COMPARISON: None. FINDINGS: The soft tissues are normal. There is narrowing of the subacromial joint spaces. There are degener ative osteophytes in the thoracic and upper lumbar spine. There are clips in the right upper quadra nt of the abdomen. The left ventricle is upper limits of normal. The cardiomediastinal silhouette and hilar structures are normal. The pulmonary vasculature is normal. There is a left-sided aorta. T he lungs are clear. The costophrenic angles are normal. IMPRESSION: 1. Stable chest x-ray with no evidence of active cardiopulmonary disease. 2. Rarefaction of bony elements. 3. Status post cholecystectomy. 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 5. 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 RPTAT:AAJJ Physician Zakia Date Time Electronically viewed and signed by Physician Zakia on 11/26/2016 14:55 PETE/
[2016-11-27] VITALS (12 sets, daily range): BP systolic 100–147; BP diastolic 45–82; PULSE 64–78; RESP 16–20
[2016-11-27] MEDS: SOD CHLORIDE 0.9% 1,000 ML IV SCH (02:30)
[2016-11-27] MEDS: LEVOTHYROXINE 25 MCG TAB PO SCH (06:07)
[2016-11-27] MEDS: FAMOTIDINE 20 MG TAB PO SCH (08:08)
[2016-11-27] MEDS: ATENOLOL 25 MG TAB PO SCH ×2 (08:09→21:31)
[2016-11-27] MEDS: AMLODIPINE 5 MG TAB PO SCH (08:10)
[2016-11-27 10:32] LABS: ADD SCAN DIFF NO
[2016-11-27 10:39] LABS: BASOPHILS % 0.3 % (0.0-2.0); EOSINOPHILS # 0.2 10^3/ul (0.0-0.5); EOSINOPHILS % 2.3 % (0.0-7.0); HEMATOCRIT 31.3 % (37.0-47.0); HEMOGLOBIN 9.7 g/dl (12.0-16.0); LYMPHOCYTES # 2.1 10^3/ul (0.8-2.9); LYMPHOCYTES % 32.9 % (15.0-51.0); MEAN CORPUSCULAR HEMOGLOBIN 29.9 pg (29.0-33.0); MEAN CORPUSCULAR VOLUME 96.6 fl (82.0-101.0); MEAN PLATELET VOLUME 9.7 fl (7.4-10.4); MONOCYTE # 0.4 10^3/ul (0.3-0.9); MONOCYTES % 5.9 % (0.0-11.0); NEUTROPHIL # 3.8 10^3/ul (1.6-7.5); NEUTROPHILS % 58.3 % (39.0-77.0); PLATELET COUNT 222 10^3/UL (140-415); RED BLOOD COUNT 3.24 10^6/ul (4.20-5.40); RED CELL DISTRIBUTION WIDTH 16.3 % (11.5-14.5); WHITE BLOOD COUNT 6.5 10^3/ul (4.8-10.8)
[2016-11-27 10:44] LABS: POTASSIUM 5.1 mmol/L (3.5-5.1)
[2016-11-27 10:47] LABS: CREATININE 0.75 mg/dl (0.44-1.00); PHOSPHORUS 2.7 mg/dl (2.5-4.9)
[2016-11-27 10:48] LABS: CALCIUM 8.3 mg/dl (8.4-10.2); MAGNESIUM 2.2 mg/dl (1.7-2.5)
--- NOTE | 2016-11-27 11:37 | PN ---
DATE: 11/27/2016 SUBJECTIVE: Stable. No events overnight. No fevers, chills, nausea, vomiting. OBJECTIVE: VITAL SIGNS: Blood pressure 147/54, respiratory rate 20, pulse 66, temperature 98.0. HEENT: Head is normocephalic. NECK: Supple. HEART: Regular rate. LUNGS: Show diminished breath sounds at base. ABDOMEN: Soft, nontender to palpation without rebound or guarding. EXTREMITIES: Negative for clubbing, cyanosis. No edema. DERMATOLOGIC: No rashes. MUSCULOSKELETAL: No joint effusions. NEUROLOGIC: No change in exam. MEDICATIONS: The patient's medications have been reviewed. LABORATORY DATA: Currently pending. IMAGING: The patient's chest x-ray shows stable, no evidence of cardiopulmonary disease. ASSESSMENT AND PLAN: 1. Nonoliguric acute kidney injury with unknown baseline creatinine. Etiology appears to be second jed to hemodynamics, Bactrim effect. The patient's renal function has been improving after disconti nuing Bactrim and giving gentle fluid challenge. At this point, will stop IV fluids and continue to monitor renal function closely. 2. Hyperkalemia secondary to infection and acute kidney injury, resolved. Continue to monitor. 3. Hypomagnesemia, resolved. The patient is status post magnesium sulfate. 4. Metabolic acidosis secondary to acute kidney injury. Continue to monitor bicarbonate levels. 5. Mineral bone disorder. Continue to monitor [facility] levels. 6. Encephalopathy, improving. 7. Mild hyponatremia, resolved. 8. Anemia. Continue to monitor hemoglobin and hematocrit levels. Dictated By: MEGGAN KUMAR/AYAKA Conf#: [id number] DID#: [id number]
[2016-11-27 14:23] LABS: CREATININE, RANDOM URINE 24 mg/dL (20-320); MICROALBUMIN <0.2 mg/dL; MICROALBUMIN/CREATININE RATIO NOTE (<30)
--- NOTE | 2016-11-27 15:19 | PN ---
Date/Time of Note Date/Time of Note DATE: 11/27/16 TIME: 15:11 Assessment/Plan VTE Prophylaxis VTE Prophylaxis Intervention: heparin Lines/Catheters IV Catheter Type (from Nrs): Peripheral IV Urinary Cath still in place: Yes Reason Cath still needed: other (indicate) Assessment/Plan Assessment/Plan 1. Hyperkalemia. likely acute renal failure related, resolve, follow up with K 2. Acute renal failure, resolved 3. Dehydration, resolved 4. Essential hypertension. controlled 5. Dysphagia. Status post evaluation by speech therapy. Pured diet. Aspiration precautions. 6. Hypothyroidism. on supplement 7. Dementia 8. Normocytic, normochromic anemia, likely nutritional 9. Deep venous thrombosis prophylaxis. heparin Subjective 24 Hr Interval Summary Free Text/Dictation no distress Exam/Review of Systems Vital Signs Vitals Vital Signs Date Time Temp Pulse Resp B/P Pulse Ox O2 Delivery O2 Flow Rate FiO2 11/27/16 12:09 97.8 72 20 122/66 99 11/27/16 08:00 Nasal Cannula 2.0 Intake and Output 11/26/16 11/26/16 11/27/16 15:00 23:00 07:00 Intake Total 50 ml 400 ml 200 ml Output Total 450 ml 500 ml Balance 50 ml -50 ml -300 ml Exam Constitutional: alert, non-verbal Head: atraumatic, normocephalic Eyes: EOMI, PERRL, nl conjunctiva, nl lids ENMT: nl external ears & nose, nl lips & teeth, nl nasal mucosa & septum Neck: non-tender, supple Respiratory: clear to auscultation, normal air movement, No congested cough, No crackles/rales, No diminished breath sounds, No intercostal retraction, No labored breathing, No other, No respirations, No tactile fremitus, No wheezing Cardiovascular: nl pulses, regular rate and rhythm, No S3, No S4, No bruits, No diastolic murmur, No edema, No gallop, No irregular rhythm, No jugular venous distention (JVD), No murmurs/extra sounds, No other, No rub, No systolic murmur Gastrointestinal: nl liver, spleen, non-tender, soft, No ascites, No bowel sounds, No distended, No firm, No hepatomegaly, No mass , No other, No rebound or guarding, No splenomegaly, No surgical scars, No tender Musculoskeletal: nl extremities to inspection Extremities: normal pulses, No calf tenderness, No clubbing, No cyanosis, No edema, No other, No palpable cord, No pitting pedal edema, No tenderness Neurological: CAMERA ENGINEER II-XII intact, confused, nl strength Skin: nl turgor Lymph: nl lymph nodes Results Result Diagram: 11/27/16 1010 11/27/16 1010 Results 24 hrs Laboratory Tests Test 11/27/16 10:10 White Blood Count 6.5 Red Blood Count 3.24 L Hemoglobin 9.7 L Hematocrit 31.3 L Mean Corpuscular Volume 96.6 Mean Corpuscular Hemoglobin 29.9 Mean Corpuscular Hemoglobin Concent 31.0 L Red Cell Distribution Width 16.3 H Platelet Count 222 Mean Platelet Volume 9.7 Neutrophils % 58.3 Lymphocytes % 32.9 Monocytes % 5.9 Eosinophils % 2.3 Basophils % 0.3 Nucleated Red Blood Cells % 0.0 Neutrophils # 3.8 Lymphocytes # 2.1 Monocytes # 0.4 Eosinophils # 0.2 Basophils # 0.0 Nucleated Red Blood Cells # 0.0 Sodium Level 140 Potassium Level 5.1 Chloride Level 113 H Carbon Dioxide Level 19 L Anion Gap 13 Blood Urea Nitrogen 21 #H Creatinine 0.75 Glucose Level 97 Calcium Level 8.3 L Phosphorus Level 2.7 Magnesium Level 2.2 Medications Medications Current Medications Lorazepam (Ativan) 0.5 mg Q6H PRN IV ANXIETY Last administered on 11/25/16 02: 05; Admin Dose 0.5 MG; Start 11/24/16 at 21:30 Nitroglycerin (Nitroglycerin (Sl Tab) 0.4 Mg) 1 tab Q5M PRN SL CHEST PAIN; Start 11/24/16 at 21:30 Acetaminophen (Tylenol Tab) 650 mg Q6H PRN PO PAIN LEVEL 1-3 OR FEVER; Start at 21:30 Acetaminophen/ Hydrocodone Bitart ([place] (5/325)) 1 tab Q6H PRN PO PAIN LEVEL 4 -6; Start 11/24/16 at 21:30 Famotidine (Pepcid) 10 mg Q48H PO Last administered on 11/27/16 08:08; Admin Dose 10 MG; Start 11/25/16 at 09:00 Amlodipine Besylate (Norvasc) 5 mg DAILY PO Last administered on 11/27/16 08: 10; Admin Dose 5 MG; Start 11/25/16 at 09:00 Atenolol (Tenormin) 25 mg BID PO Last administered on 11/27/16 08:09; Admin Dose 25 MG; Start 11/25/16 at 09:00 Hydralazine HCl (Apresoline) 5 mg Q6H PRN IV SBP>160; Start 11/25/16 at 10:30 LISA BALLARD MD Nov 27, 2016 15:19
[2016-11-27] MEDS: SOD CHLORIDE 0.45% 1,000 ML IV SCH (16:22)
[2016-11-28] VITALS (12 sets, daily range): BP systolic 123–136; BP diastolic 58–83; PULSE 68–82; RESP 16–20
[2016-11-28] MEDS: SOD CHLORIDE 0.45% 1,000 ML IV SCH (05:35)
[2016-11-28] MEDS: LEVOTHYROXINE 25 MCG TAB PO SCH (06:54)
[2016-11-28 07:30] LABS: ADD SCAN DIFF NO
[2016-11-28 07:38] LABS: BASOPHILS % 0.3 % (0.0-2.0); EOSINOPHILS # 0.2 10^3/ul (0.0-0.5); EOSINOPHILS % 3.4 % (0.0-7.0); HEMATOCRIT 28.7 % (37.0-47.0); HEMOGLOBIN 8.8 g/dl (12.0-16.0); LYMPHOCYTES # 2.8 10^3/ul (0.8-2.9); LYMPHOCYTES % 43.9 % (15.0-51.0); MEAN CORPUSCULAR HEMOGLOBIN 29.3 pg (29.0-33.0); MEAN CORPUSCULAR HGB CONC 30.7 g/dl (32.0-37.0); MEAN CORPUSCULAR VOLUME 95.7 fl (82.0-101.0); MEAN PLATELET VOLUME 10.5 fl (7.4-10.4); MONOCYTE # 0.4 10^3/ul (0.3-0.9); MONOCYTES % 6.6 % (0.0-11.0); NEUTROPHILS % 45.6 % (39.0-77.0); PLATELET COUNT 193 10^3/UL (140-415); RED CELL DISTRIBUTION WIDTH 16.4 % (11.5-14.5); WHITE BLOOD COUNT 6.5 10^3/ul (4.8-10.8)
[2016-11-28 08:07] LABS: CALCIUM 7.7 mg/dl (8.4-10.2); CREATININE 0.63 mg/dl (0.44-1.00); MAGNESIUM 1.7 mg/dl (1.7-2.5); PHOSPHORUS 2.3 mg/dl (2.5-4.9)
[2016-11-28] MEDS: ATENOLOL 25 MG TAB PO SCH ×2 (08:22→20:55)
[2016-11-28] MEDS: AMLODIPINE 5 MG TAB PO SCH (08:23)
[2016-11-28] MEDS ORDERED: NEUTRA-PHOS 250 MG PACKET PO ONE (10:30)
--- NOTE | 2016-11-28 11:36 | PN ---
DATE: 11/28/2016 SUBJECTIVE: The patient is stable, no acute events overnight. Denies any fevers, chills, nausea or vomiting. No shortness of breath. OBJECTIVE: VITAL SIGNS: Blood pressure is 131/58, respiratory rate 20, pulse 71, temperature 97.4. HEENT: Head is normocephalic. NECK: Supple. HEART: Regular rate. LUNGS: Show diminished breath sounds at the bases. ABDOMEN: Soft, nontender to palpation. No rebound or guarding. EXTREMITIES: Negative for clubbing, cyanosis, or edema. DERMATOLOGIC: No rashes. MUSCULOSKELETAL: No joint effusions. NEUROLOGIC: No change in exam. MEDICATIONS: The patient's medications have been reviewed. LABORATORY DATA: Shows sodium 134, potassium 5.0, chloride 113, BUN 14, creatinine 0.63, phosphorus 2.3. White count 6.5, hemoglobin 9.8, hematocrit 28.7, platelet count is 193. ASSESSMENT AND PLAN: 1. Nonoliguric acute kidney injury with unknown baseline creatinine. Etiology secondary to hemodyn amics, Bactrim effect. The patient's renal function is improved. We will continue current treatmen t plan. We will discontinue IV fluids and monitor. 2. Hyponatremia in part due to hypertonic fluids. We will discontinue half NS and monitor sodium l evels. 3. Hyperkalemic, resolved. 4. Hypomagnesemia, resolved. 5. Hypophosphatemia. We will replete with Neutra-Phos 1 packet. 6. Metabolic acidosis secondary to acute kidney injury. The patient's bicarbonate levels have impr nunu. Continue to monitor. 7. Mineral bone disorder. Continue to monitor calcium and phosphorus levels. 8. Encephalopathy, improving. 9. Anemia. Continue to monitor hemoglobin and hematocrit levels. 10. History of dementia. Dictated By: MEGGAN KUMAR/AYAKA Conf#: [id number] DID#: [id number]
--- NOTE | 2016-11-28 16:22 | PN ---
Date/Time of Note Date/Time of Note DATE: 11/28/16 TIME: 16:21 Assessment/Plan VTE Prophylaxis VTE Prophylaxis Intervention: heparin Lines/Catheters IV Catheter Type (from Nrs): Peripheral IV Urinary Cath still in place: Yes Reason Cath still needed: other (indicate) Assessment/Plan Assessment/Plan 1. Hyperkalemia. likely acute renal failure related, resolve, follow up with K 2. Acute renal failure, resolved 3. Dehydration, resolved 4. Essential hypertension. controlled 5. Dysphagia. Status post evaluation by speech therapy. Pured diet. Aspiration precautions. 6. Hypothyroidism. on supplement 7. Dementia 8. Normocytic, normochromic anemia, likely nutritional 9. Deep venous thrombosis prophylaxis. heparin Subjective 24 Hr Interval Summary Free Text/Dictation demented, nonverbal Exam/Review of Systems Vital Signs Vitals Vital Signs Date Time Temp Pulse Resp B/P Pulse Ox O2 Delivery O2 Flow Rate FiO2 11/28/16 15:50 98.5 80 20 127/61 98 11/28/16 10:07 Nasal Cannula 3.0 Intake and Output 11/27/16 11/27/16 11/28/16 14:59 22:59 06:59 Intake Total 400 ml Output Total 850 ml Balance -450 ml Exam Constitutional: non-verbal Head: atraumatic, normocephalic Eyes: EOMI, PERRL, nl conjunctiva, nl lids, nl sclera ENMT: nl external ears & nose, nl lips & teeth, nl nasal mucosa & septum Neck: non-tender, supple Respiratory: clear to auscultation, normal air movement, No congested cough, No crackles/rales, No diminished breath sounds, No intercostal retraction, No labored breathing, No other, No respirations, No tactile fremitus, No wheezing Cardiovascular: nl pulses, regular rate and rhythm, No S3, No S4, No bruits, No diastolic murmur, No edema, No gallop, No irregular rhythm, No jugular venous distention (JVD), No murmurs/extra sounds, No other, No rub, No systolic murmur Gastrointestinal: nl liver, spleen, non-tender, soft, No ascites, No bowel sounds, No distended, No firm, No hepatomegaly, No mass , No other, No rebound or guarding, No splenomegaly, No surgical scars, No tender Musculoskeletal: nl extremities to inspection Extremities: normal pulses, No calf tenderness, No clubbing, No cyanosis, No edema, No other, No palpable cord, No pitting pedal edema, No tenderness 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, confused, nl strength Skin: nl turgor Lymph: nl lymph nodes Results Result Diagram: 11/28/16 0650 11/28/16 0650 Results 24 hrs Laboratory Tests Test 11/28/16 06:50 White Blood Count 6.5 Red Blood Count 3.00 L Hemoglobin 8.8 L Hematocrit 28.7 L Mean Corpuscular Volume 95.7 Mean Corpuscular Hemoglobin 29.3 Mean Corpuscular Hemoglobin Concent 30.7 L Red Cell Distribution Width 16.4 H Platelet Count 193 Mean Platelet Volume 10.5 H Neutrophils % 45.6 Lymphocytes % 43.9 Monocytes % 6.6 Eosinophils % 3.4 Basophils % 0.3 Nucleated Red Blood Cells % 0.0 Neutrophils # 3.0 Lymphocytes # 2.8 Monocytes # 0.4 Eosinophils # 0.2 Basophils # 0.0 Nucleated Red Blood Cells # 0.0 Sodium Level 134 L Potassium Level 5.0 Chloride Level 113 H Carbon Dioxide Level 20 L Anion Gap 6 L Blood Urea Nitrogen 14 Creatinine 0.63 Glucose Level 91 Calcium Level 7.7 L Phosphorus Level 2.3 L Magnesium Level 1.7 Medications Medications Current Medications Lorazepam (Ativan) 0.5 mg Q6H PRN IV ANXIETY Last administered on 11/25/16 02: 05; Admin Dose 0.5 MG; Start 11/24/16 at 21:30 Nitroglycerin (Nitroglycerin (Sl Tab) 0.4 Mg) 1 tab Q5M PRN SL CHEST PAIN; Start 11/24/16 at 21:30 Acetaminophen (Tylenol Tab) 650 mg Q6H PRN PO PAIN LEVEL 1-3 OR FEVER; Start at 21:30 Acetaminophen/ Hydrocodone Bitart ([place] (5/325)) 1 tab Q6H PRN PO PAIN LEVEL 4 -6; Start 11/24/16 at 21:30 Famotidine (Pepcid) 10 mg Q48H PO Last administered on 11/27/16 08:08; Admin Dose 10 MG; Start 11/25/16 at 09:00 Amlodipine Besylate (Norvasc) 5 mg DAILY PO Last administered on 11/28/16 08: 23; Admin Dose 5 MG; Start 11/25/16 at 09:00 Atenolol (Tenormin) 25 mg BID PO Last administered on 11/28/16 08:22; Admin Dose 25 MG; Start 11/25/16 at 09:00 Hydralazine HCl (Apresoline) 5 mg Q6H PRN IV SBP>160; Start 11/25/16 at 10:30 LISA BALLARD MD Nov 28, 2016 16:22
[2016-11-29] VITALS (13 sets, daily range): BP systolic 94–134; BP diastolic 53–68; PULSE 75–109; RESP 16–20
[2016-11-29] MEDS: LEVOTHYROXINE 25 MCG TAB PO SCH (06:20)
[2016-11-29] MEDS: ATENOLOL 25 MG TAB PO SCH ×2 (08:15→20:56)
[2016-11-29] MEDS: FAMOTIDINE 20 MG TAB PO SCH (08:15)
[2016-11-29] MEDS: AMLODIPINE 5 MG TAB PO SCH (08:15)
--- NOTE | 2016-11-29 11:31 | PN ---
DATE: 11/29/2016 SUBJECTIVE: Patient stable. No events overnight. The patient remains confused. No other events n oted. OBJECTIVE: VITAL SIGNS: Blood pressure 134/68, respiration is 19, pulse 108, temperature 98.3. HEENT: Head is normocephalic. NECK: Supple. HEART: Regular rate. LUNGS: Show diminished breath sounds at base. ABDOMEN: Soft, nontender to palpation. No rebound or guarding. EXTREMITIES: Negative for clubbing, cyanosis, no edema. DERMATOLOGIC: No rashes. MUSCULOSKELETAL: No joint effusions. NEUROLOGIC: No change in exam. MEDICATIONS: The patient's medications have been reviewed. LABORATORY DATA: BMP is currently pending. ASSESSMENT AND PLAN: 1. Nonoliguric acute kidney injury with unknown baseline creatinine. Etiology secondary to hemodyn amics/medication effect. Renal functions improved. Continue current treatment plan. 2. Hyponatremia secondary in part due to hypertonic fluids. The patient's was discontinued. Continue to monitor. 3. Hypophosphatemia. Continue to monitor and replete. 4. Metabolic acidosis secondary to acute kidney injury, resolved. 5. Mineral bone disorder. Continue to monitor calcium and phosphorus levels. 6. Acute encephalopathy and dementia. The patient's mental status is waning and waxing continue to monitor. 7. Anemia. Continue to monitor hemoglobin and hematocrit levels. Dictated By: MEGGAN KUMAR/AYAKA Conf#: [id number] DID#: [id number]
[2016-11-29 12:09] LABS: CALCIUM 8.3 mg/dl (8.4-10.2); CREATININE 0.64 mg/dl (0.44-1.00); POTASSIUM 5.3 mmol/L (3.5-5.1)
[2016-11-29] MEDS ORDERED: SOD CHLORIDE 0.9% 1,000 ML IV SCH (14:00)
[2016-11-29 18:14] LABS: ADD UMIC YES; URINE BILIRUBIN (Dip) NEGATIVE (NEGATIVE); URINE BLOOD (Dip) 2+ (NEGATIVE); URINE COLOR YELLOW (YELLOW); URINE GLUCOSE (Dip) NEGATIVE (NEGATIVE); URINE KETONES (Dip) TRACE (NEGATIVE); URINE LEUKOCYTE ESTERASE (Dip) 3+ (NEGATIVE); URINE NITRITE (Dip) NEGATIVE (NEGATIVE); URINE TOTAL PROTEIN (Dip) 1+ (NEGATIVE); URINE UROBILINOGEN (Dip) 0.2 E.U./dL (0.1-1.0)
--- NOTE | 2016-11-29 19:04 | RADRPT ---
PROCEDURE: CT brain without contrast CLINICAL INDICATION: Altered mental status TECHNIQUE: A CT of the brain was performed utilizing axial sections from the skull base through th e vertex without contrast. Sagittal and coronal images were also reformatted. The exam CTDIvol = 43. 27 mGy and DLP = 720.23 mGy-cm. COMPARISON: None available FINDINGS: No acute intracranial hemorrhage is identified. There is no mass effect or midline shift. No extra -axial fluid collection is seen. The ventricles and sulci are larger in size and configuration for the patient's provided age of 89 years consistent with advanced generalized atrophy. Extensive low attenuation involving the subcortical and periventricular white matter is nonspecific but likely re flects the sequela of chronic small vessel ischemia. Suggs-white differentiation is preserved with n o findings to suggest an acute ischemic infarct. The fourth ventricle is midline and there is no density alteration within the lucía or cerebellum. The osseous structures are unremarkable for acute abnormality, generalized demineralization cannot e xclude osteoporosis. The mastoid air cells and visualized paranasal sinuses are clear. 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 Physician Sage Date Time Electronically viewed and signed by Physician Sage on 11/29/2016 19:04 /
[2016-11-29 19:05] LABS: BACTERIA,URINE FEW; SQUAMOUS EPITHELIAL CELL,UR FEW; URINE RBCS 0-2 /HPF (0)
--- NOTE | 2016-11-29 20:00 | RADRPT ---
PROCEDURE: XR Chest. CLINICAL INDICATION: Aspiration. TECHNIQUE: PA and Lateral views of the chest were obtained. COMPARISON: Chest x-ray 04/18/2007. FINDINGS: The soft tissues are normal. There are osteophytes in the thoracic spine. The subacromial joint sp aces are narrowed bilaterally. There are degenerative changes in the AC and glenohumeral joints. T he heart, cardiomediastinal silhouette and hilar structures are normal. The pulmonary vasculature is normal. There is a left-sided aorta. There is consolidative infiltrate and atelectasis in the super ior segment of the right lower lobe. The remaining lungs are clear. A small right pleural effusion is not excluded S8 elliptical density is seen at the level of the minor fissure. IMPRESSION: 1. Right lower lobe pneumonia. 2. Elliptical density in the area of the minor fissure which may be the result of atelectasis or sm all pleural effusion. 3. 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 4. Bilateral chronic rotator cuff tears. 5. Status post cholecystectomy. RPTAT:AAJJ Physician Zakia Date Time Electronically viewed and signed by Physician Zakia on 11/29/2016 20:00 /
--- NOTE | 2016-11-29 20:04 | PN ---
Date/Time of Note Date/Time of Note DATE: 11/29/16 TIME: 19:53 Assessment/Plan VTE Prophylaxis VTE Prophylaxis Intervention: heparin Lines/Catheters IV C[facility]ter Type (from [facility]): Peripheral IV Urinary Cath still in place: Yes Reason Cath still needed: other (indicate) (clinical condition) Assessment/Plan Chief Complaint/Hosp Course 1. AMS - patient somnolent and non-verbal. Hemodynamically stable, afebrile. Will order stat CT head, u/a and culture if u/a positive. chest xray. Previous u /a was negative. 2. Hyperkalemia - likely acute renal failure related. K+ on higher end of normal , continue to follow, nephro on board. 3. Acute renal failure, resolved 4. Dehydration, resolved 5. Essential hypertension. controlled 6. Dysphagia. Status post evaluation by speech therapy. Was on pureed diet, however gurgling noted today. NPO for now. Oral suction. Aspiration precautions , IV fluids of NS at 75cc/hr. 7 Hypothyroidism. on supplement 8. Dementia 9. Normocytic, normochromic anemia, likely nutritional 10. Deep venous thrombosis prophylaxis. heparin Problems: Subjective 24 Hr Interval Summary Free Text/Dictation Patient has been non-verbal today, which is changed from yesterday as per son and nurse. Waxing and waning. Unable to tolerate oral feeds today. Subjective hx not possible: pt non-verbal Exam/Review of Systems Vital Signs Vitals Vital Signs Date Time Temp Pulse Resp B/P Pulse Ox O2 Delivery O2 Flow Rate FiO2 11/29/16 16:33 89 11/29/16 16:05 98.2 19 101/55 98 11/29/16 10:48 Nasal Cannula 5.0 Intake and Output 11/28/16 11/28/16 11/29/16 15:00 23:00 07:00 Intake Total 850 ml 240 ml Output Total 950 ml 800 ml Balance -100 ml -560 ml Exam Patient does not appear in acute distress, however she is non-verbal today. Sleeping more. Was on pureed diet, however patient did not appear to be tolerating po today. Mild gurgling noted at upper airway. Constitutional: frail, non-verbal, other (somnolent) Head: atraumatic, normocephalic Respiratory: clear to auscultation Cardiovascular: nl pulses, regular rate and rhythm Gastrointestinal: non-tender, soft Musculoskeletal: nl extremities to inspection Neurological: confused, lethargic, other Skin: No diaphoresis Results Result Diagram: 11/28/16 0650 11/29/16 1111 Results 24 hrs Laboratory Tests Test 11/29/16 11:11 11/29/16 17:52 Sodium Level 134 L Potassium Level 5.3 H Chloride Level 110 Carbon Dioxide Level 21 Anion Gap 8 Blood Urea Nitrogen 15 Creatinine 0.64 Glucose Level 123 Calcium Level 8.3 L Urine Color YELLOW Urine Clarity CLOUDY Urine pH 6.5 Urine Specific [place] 1.015 Urine Ketones TRACE H Urine Nitrite NEGATIVE Urine Bilirubin NEGATIVE Urine Urobilinogen 0.2 E.U./dL Urine Leukocyte Esterase 3+ H Urine Microscopic RBC 0-2 Urine Microscopic WBC 25-50 Urine Squamous Epithelial Cells FEW Urine Bacteria FEW Urine Hemoglobin 2+ H Urine Glucose NEGATIVE Urine Total Protein 1+ H Medications Medications Current Medications Lorazepam (Ativan) 0.5 mg Q6H PRN IV ANXIETY Last administered on 11/25/16 02: 05; Admin Dose 0.5 MG; Start 11/24/16 at 21:30; Status Future Hold Nitroglycerin (Nitroglycerin (Sl Tab) 0.4 Mg) 1 tab Q5M PRN SL CHEST PAIN; Start 11/24/16 at 21:30 Acetaminophen (Tylenol Tab) 650 mg Q6H PRN PO PAIN LEVEL 1-3 OR FEVER; Start at 21:30 Acetaminophen/ Hydrocodone Bitart ([place] (5/325)) 1 tab Q6H PRN PO PAIN LEVEL 4 -6; Start 11/24/16 at 21:30 Famotidine (Pepcid) 10 mg Q48H PO Last administered on 11/29/16 08:15; Admin Dose 10 MG; Start 11/25/16 at 09:00 Amlodipine Besylate (Norvasc) 5 mg DAILY PO Last administered on 11/29/16 08: 15; Admin Dose 5 MG; Start 11/25/16 at 09:00 Atenolol (Tenormin) 25 mg BID PO Last administered on 11/29/16 08:15; Admin Dose 25 MG; Start 11/25/16 at 09:00 Hydralazine HCl 5 mg 5 mg Q6H PRN IV SBP>160; Start 11/25/16 at 10:30 Sodium Chloride (NS) 1,000 ml @ 75 mls/hr [id number] IV Last administered on 11/29t 14:32; Admin Dose 75 MLS/HR; Start 11/29/16 at 14:00; Stop 11/30/16 at 03: 19 KG BEJARANO Nov 29, 2016 20:04
[2016-11-29] MEDS: AZTREONAM 0.5 GM in SOD CHLORIDE 0.9% 50 ML IV SCH (23:06)
[2016-11-30] VITALS (12 sets, daily range): BP systolic 115–139; BP diastolic 58–81; PULSE 81–106; RESP 16–19
[2016-11-30] MEDS: LEVOTHYROXINE 25 MCG TAB PO SCH ×2 (07:00→23:49)
[2016-11-30] MEDS: AMLODIPINE 5 MG TAB PO SCH (09:00)
[2016-11-30] MEDS: ATENOLOL 25 MG TAB PO SCH ×2 (09:00→20:14)
[2016-11-30] MEDS: AZTREONAM 0.5 GM in SOD CHLORIDE 0.9% 50 ML IV SCH ×2 (10:17→20:12)
[2016-11-30] MEDS ORDERED: SOD CHLORIDE 0.9% 1,000 ML IV SCH (10:30)
--- NOTE | 2016-11-30 10:42 | PN ---
DATE: 11/30/2016 SUBJECTIVE: The patient remains lethargic. He failed a swallow evaluation. No other events noted. No hemoptysis, hematemesis or hematochezia. OBJECTIVE: VITAL SIGNS: Blood pressure is 139/60, respirations 19, pulse 110, temperature 97.8. HEENT: Head is normocephalic. NECK: Supple. HEART: Regular rate. LUNGS: Show diminished breath sounds at base. ABDOMEN: Soft, nontender to palpation without rebound or guarding. EXTREMITIES: Negative for clubbing, cyanosis, no edema. DERMATOLOGIC: No rashes. MUSCULOSKELETAL: No joint effusions. NEUROLOGIC: No change in exam. MEDICATIONS: The patient's medications have been reviewed. LABORATORY DATA: From 11/29/2016 reviewed. ASSESSMENT AND PLAN: 1. Nonoliguric acute kidney injury with unknown baseline creatinine. Etiology secondary to hemodyn amics. Renal function is improved with IV hydration. Will continue to monitor. 2. Hyperkalemia, etiology may be spurious. Will re-followup a repeat renal panel. 3. Mild hyponatremia. Continue to monitor. 4. Mineral bone disorder. Continue to monitor calcium and phosphorus levels. 5. Acute encephalopathy on top of dementia. The patient's mental status is waxing and waning. A C T scan showed no acute pathology. Continue to monitor. 6. Dyslipidemia to monitor hemoglobin and hematocrit levels. 8. Dysphagia. The patient may require speech therapy and possible tube feeding. Dictated By: MEGGAN KUMAR/AYAKA Conf#: [id number] DID#: [id number]
[2016-11-30 17:24] LABS: ADD SCAN DIFF NO
[2016-11-30 17:31] LABS: HEMATOCRIT 28.1 % (37.0-47.0); HEMOGLOBIN 9.2 g/dl (12.0-16.0); MEAN CORPUSCULAR HEMOGLOBIN 30.6 pg (29.0-33.0); MEAN CORPUSCULAR HGB CONC 32.7 g/dl (32.0-37.0); MEAN CORPUSCULAR VOLUME 93.4 fl (82.0-101.0); MEAN PLATELET VOLUME 11.5 fl (7.4-10.4); PLATELET COUNT 156 10^3/UL (140-415); RED BLOOD COUNT 3.01 10^6/ul (4.20-5.40); RED CELL DISTRIBUTION WIDTH 15.9 % (11.5-14.5); WHITE BLOOD COUNT 9.5 10^3/ul (4.8-10.8)
[2016-11-30 17:39] LABS: POTASSIUM 4.3 mmol/L (3.5-5.1)
[2016-11-30 17:42] LABS: CREATININE 0.59 mg/dl (0.44-1.00)
[2016-11-30 17:43] LABS: CALCIUM 7.3 mg/dl (8.4-10.2); MAGNESIUM 1.5 mg/dl (1.7-2.5); PHOSPHORUS 2.1 mg/dl (2.5-4.9)
[2016-11-30 19:41] LABS: LYMPHOCYTES # 1.2 10^3/ul (0.8-2.9); MONOCYTE # 0.1 10^3/ul (0.3-0.9); NEUTROPHIL # 6.4 10^3/ul (1.6-7.5)
--- NOTE | 2016-11-30 19:50 | PN ---
Date/Time of Note Date/Time of Note DATE: 11/30/16 TIME: 19:36 Assessment/Plan VTE Prophylaxis VTE Prophylaxis Intervention: heparin Lines/Catheters [facility] ([facility] Peripheral IV Urinary Cath still in place: Yes Reason Cath still needed: other (indicate) (clinical condition) Assessment/Plan Chief Complaint/Hosp Course 1. AMS -patient slightly more responsive today easily arousable. Her baseline mental status is questionable based on varied accounts from family members as per nurse and me hemodynamically stable, afebrile. CT of the head was negative.. UA did show positive leukoesterase started on aztreonam yesterday. Urine culture ordered. 2. Hyperkalemia - likely acute renal failure related. Within normal range, continue to follow, nephro on board. 3. Acute renal failure, resolved 4. Dehydration, resolved 5. Essential hypertension. controlled 6. Dysphagia. Status post evaluation by speech therapy. Was on pureed diet, however gurgling noted today. NPO for now. Oral suction. Aspiration precautions , IV fluids of normal saline were switched to D5 normal saline at 50 cc an hour as patient is not currently eating. 7 Hypothyroidism. on supplement 8. Dementia 9. Normocytic, normochromic anemia, likely nutritional 10. Deep venous thrombosis prophylaxis. heparin dispo: At the current time I have had varying accounts (from the son Renaldo, and from the other sons who spoke to the nurse today) of what the patient's baseline mental status and functional status at home. On clinical exam her fucntional status and overall condition appears very poor. At the current time I would like to have a family meeting with her sons including the STUART Macario. Yesterday I did speak with the son Renaldo (who I had mistakenly thought was Zechariah) and he stated prior to the admission his mom was talking at home and able to move around to a certain degree in the house, however according to the other sons she has poor overall functioning. I did consult social work and we will have a family meeting tomorrow regarding goals of care around 12 PM. As there is concern that if patient's status does not improve and she is not able to regain swallowing that then she may need to have a PEG tube. However, her overall physical condition does appear poor and I would like to get a better idea of her baseline status at home before definitively proceeding further with suggestions of possible hospice for the patient. Problems: Subjective 24 Hr Interval Summary Free Text/Dictation Patient appears minimally improved today. Limited verbally. Poor functioning. Exam/Review of Systems Vital Signs Vitals Vital Signs Date Time Temp Pulse Resp B/P Pulse Ox O2 Delivery O2 Flow Rate FiO2 11/30/16 17:12 101 11/30/16 15:46 98.2 19 119/68 98 11/30/16 10:03 Nasal Cannula 3.0 Intake and Output 11/29/16 11/29/16 11/30/16 15:00 23:00 07:00 Intake Total 350 ml Output Total 900 ml 850 ml Balance -550 ml -850 ml Exam General: Frail, functional status appears poor, HEENT: Atraumatic, normocephalic, oral secretions Neck: Supple with full range of motion. No rigidity or meningismus Chest: Nontender Lungs: Clear to auscultation bilaterally no crackles rales or wheezing, Heart: Normal S1-S2, Regular rhythm and rate. Abdomen: Soft , nontender, nondistended , bowel sounds are present. No guarding no rebound tenderness , No masses or organomegaly. No costovertebral temporal angle mass Extremities: No edema, decreased strength secondary to clinical condition Neurologic: Patient is minimally verbal, her baseline mental status is questionable at this time Results Result Diagram: 11/30/16 1638 11/30/16 1638 Results 24 hrs Laboratory Tests Test 11/30/16 16:38 White Blood Count 9.5 # Red Blood Count 3.01 L Hemoglobin 9.2 L Hematocrit 28.1 L Mean Corpuscular Volume 93.4 Mean Corpuscular Hemoglobin 30.6 Mean Corpuscular Hemoglobin Concent 32.7 Red Cell Distribution Width 15.9 H Platelet Count 156 Mean Platelet Volume 11.5 H Neutrophils % Lymphocytes % Monocytes % Eosinophils % Neutrophils # Lymphocytes # Monocytes # Eosinophils # Sodium Level 139 Potassium Level 4.3 Chloride Level 109 Carbon Dioxide Level 21 Anion Gap 13 Blood Urea Nitrogen 13 Creatinine 0.59 Glucose Level 77 # Calcium Level 7.3 L Phosphorus Level 2.1 L Magnesium Level 1.5 L Medications Medications Current Medications Lorazepam (Ativan) 0.5 mg Q6H PRN IV ANXIETY Last administered on 11/25/16t 02: 05; Admin Dose 0.5 MG; Start 11/24/16 at 21:30; Status Future Hold Nitroglycerin (Nitroglycerin (Sl Tab) 0.4 Mg) 1 tab Q5M PRN SL CHEST PAIN; Start 11/24/16 at 21:30 Acetaminophen (Tylenol Tab) 650 mg Q6H PRN PO PAIN LEVEL 1-3 OR FEVER; Start at 21:30 Acetaminophen/ Hydrocodone Bitart ([place] (5/325)) 1 tab Q6H PRN PO PAIN LEVEL 4 -6; Start 11/24/16 at 21:30 Famotidine (Pepcid) 10 mg Q48H PO Last administered on 11/29/16 08:15; Admin Dose 10 MG; Start 11/25/16 at 09:00 Amlodipine Besylate (Norvasc) 5 mg DAILY PO Last administered on 11/29/16 08: 15; Admin Dose 5 MG; Start 11/25/16 at 09:00 Atenolol (Tenormin) 25 mg BID PO Last administered on 11/29/16 08:15; Admin Dose 25 MG; Start 11/25/16 at 09:00 Hydralazine HCl 5 mg 5 mg Q6H PRN IV SBP>160; Start 11/25/16 at 10:30 Aztreonam 0.5 gm/ Sodium Chloride 50 ml @ 100 mls/hr Q12 IV Last administered on 11/30/16 10:17; Admin Dose 100 MLS/HR; Start 11/29/16 at 21:30 Dextrose/Sodium Chloride (D5-NS) 1,000 ml @ 50 mls/hr Q20H IV ; Start 11/30/16 at 20:00; Status KG VELAZQUEZ Nov 30, 2016 19:46
[2016-11-30] MEDS: DEXTROSE 5%-0.9% NACL 1,000 ML IV SCH (20:13)
[2016-12-01] VITALS (11 sets, daily range): BP systolic 109–150; BP diastolic 59–80; PULSE 80–128; RESP 16–19
[2016-12-01] MEDS: AZTREONAM 0.5 GM in SOD CHLORIDE 0.9% 50 ML IV SCH ×2 (08:22→20:03)
[2016-12-01] MEDS: FAMOTIDINE 20 MG TAB PO SCH (08:24)
[2016-12-01] MEDS: AMLODIPINE 5 MG TAB PO SCH (08:24)
[2016-12-01] MEDS: ATENOLOL 25 MG TAB PO SCH ×2 (08:24→19:54)
[2016-12-01 08:48] LABS: ADD SCAN DIFF NO
[2016-12-01 08:52] LABS: BASOPHILS % 0.2 % (0.0-2.0); EOSINOPHILS # 0.2 10^3/ul (0.0-0.5); EOSINOPHILS % 1.6 % (0.0-7.0); HEMATOCRIT 32.2 % (37.0-47.0); LYMPHOCYTES # 2.3 10^3/ul (0.8-2.9); LYMPHOCYTES % 22.4 % (15.0-51.0); MEAN CORPUSCULAR HEMOGLOBIN 29.9 pg (29.0-33.0); MEAN CORPUSCULAR HGB CONC 31.1 g/dl (32.0-37.0); MEAN CORPUSCULAR VOLUME 96.4 fl (82.0-101.0); MEAN PLATELET VOLUME 11.9 fl (7.4-10.4); MONOCYTE # 0.4 10^3/ul (0.3-0.9); MONOCYTES % 3.8 % (0.0-11.0); NEUTROPHIL # 7.2 10^3/ul (1.6-7.5); NEUTROPHILS % 71.4 % (39.0-77.0); PLATELET COUNT 146 10^3/UL (140-415); RED BLOOD COUNT 3.34 10^6/ul (4.20-5.40); RED CELL DISTRIBUTION WIDTH 16.2 % (11.5-14.5)
[2016-12-01 09:02] LABS: POTASSIUM 4.3 mmol/L (3.5-5.1)
[2016-12-01 09:05] LABS: CALCIUM 7.6 mg/dl (8.4-10.2); CREATININE 0.55 mg/dl (0.44-1.00); MAGNESIUM 1.5 mg/dl (1.7-2.5); PHOSPHORUS 1.8 mg/dl (2.5-4.9)
--- NOTE | 2016-12-01 10:24 | PN ---
DATE: 12/01/2016 SUBJECTIVE: The patient is stable, no acute events noted. No fevers, chills, nausea, or vomiting. No shortness of breath. The patient remains confused. OBJECTIVE: VITAL SIGNS: Blood pressure 124/78, respiration 18, temperature 98.6. HEENT: Head is normocephalic. NECK: Supple. HEART: Regular rate. LUNGS: Show diminished breath sounds at base. ABDOMEN: Soft, nontender to palpation without rebound or guarding. EXTREMITIES: Negative for clubbing, cyanosis, or edema. DERMATOLOGIC: No rashes. MUSCULOSKELETAL: No joint effusions. NEUROLOGIC: No change in exam. MEDICATIONS: The patient's medications have been reviewed. LABORATORY DATA: Showed sodium 141, potassium 4.3, BUN 12, creatinine 0.55, phosphorus 1.8, magnesi um 1.5. White count ____, hemoglobin 10.0, hematocrit 32.2, platelet count is 146. ASSESSMENT AND PLAN: 1. Nonoliguric acute kidney injury with unknown baseline creatinine. Etiology secondary to hemodyn amics. Renal function is improved. Continue current treatment plan, supportive care, renally dose medications. 2. Hyperkalemia, resolved. 3. Hypophosphatemia, hypomagnesemia. Will replete with K-Phos and magnesium sulfate. 4. Acute encephalopathy and dementia. The patient remains confused. Continue to monitor. 5. Dysphagia. The patient's family is going to determine whether to have percutaneous endoscopic g astrostomy placement. Monitor. 6. Anemia. Continue to monitor hemoglobin and hematocrit levels. Dictated By: MEGGAN KUMAR/AYAKA Conf#: [id number] DID#: [id number]
[2016-12-01] MEDS ORDERED: MAGNESIUM SULFATE 2 GM/50 ML 50 ML IVPB ONE (10:30)
[2016-12-01] MEDS ORDERED: POTASSIUM PHOSPHATE 20 MEQ in SOD CHLORIDE 0.9% 250 ML IVPB ONE (11:00)
[2016-12-01] MEDS: DEXTROSE 5%-0.9% NACL 1,000 ML IV SCH (16:00)
--- NOTE | 2016-12-01 16:16 | PN ---
Date/Time of Note Date/Time of Note DATE: 12/01/16 TIME: 15:57 Assessment/Plan VTE Prophylaxis VTE Prophylaxis Intervention: heparin Lines/Catheters IV [facility] Type ([facility]): Peripheral IV Urinary Cath still in place: Yes Reason Cath still needed: other (indicate) (clinical condition, uti) Assessment/Plan Chief Complaint/Hosp Course 1. AMS - No improvement from yesterday. 2 weeks ago was verbal at home according to sons and alert and awake. So currently not at baseline. Grinding teeth which is baseline. On Abx for UTI, awaiting culture results. CRP 18. Normal WBC. Continue to follow. Treated previously for decub, will have wound care reasses. See below for family discussion. 2. Hyperkalemia - likely acute renal failure related. Within normal range, continue to follow, nephro on board. 3. Acute renal failure, resolved 4. Dehydration, resolved 5. Essential hypertension. controlled 6. Dysphagia. NPO, aspiration precautions. 7 Hypothyroidism. on supplement 8. Dementia 9. Normocytic, normochromic anemia, likely nutritional 10. Deep venous thrombosis prophylaxis. heparin Family meeting had today with all Sons, including Renaldo (poa). It apperas patient at baseline 1 - 2 weeks ago was talking and alert, though she has been requiring assistance with ADLs as she unable to perform them herself. It is during this hospital stay that her mental status has declined. Code status is still DNR. Goals of care discussed with family. Discussion also had with Dr. Sosa of Palliative care. Family is going to decide on further goals of care. As she is not able to pass the swallow eval and is on aspiration precautions she is currently on iv fluids. Family will decide further on nutrition ie, peg tube. Hospice discussed with family as well. Family will discuss and let us know in the coming days. Problems: Subjective 24 Hr Interval Summary Free Text/Dictation No improvement from yesterday from a verbal and alert standpoint. She is grinding her teeth which is her baseline as per sons. Poor functioning. Family meeting had with the sons today ornamental iron worker helper and case liner were present. Exam/Review of Systems Vital Signs Vitals Vital Signs Date Time Temp Pulse Resp B/P Pulse Ox O2 Delivery O2 Flow Rate FiO2 12/01/16 15:43 98.2 132 135/80 12/01/16 12:03 19 98 12/01/16 08:00 Nasal Cannula 3.0 Intake and Output 11/30/16 11/30/16 12/01/16 15:00 23:00 07:00 Intake Total 100 ml Output Total 400 ml Balance 100 ml -400 ml Exam General: Frail, functional status appears poor, grinding teeth, no vebalization HEENT: Atraumatic, normocephalic, oral secretions Neck: Supple with full range of motion. No rigidity or meningismus Chest: Nontender Lungs: Clear to auscultation bilaterally no crackles rales or wheezing, Heart: Normal S1-S2, Regular rhythm and rate. Abdomen: Soft , nontender, nondistended , bowel sounds are present. No guarding no rebound tenderness , No masses or organomegaly. No costovertebral temporal angle mass Extremities: No edema, decreased strength secondary to clinical condition Neurologic: Patient is limited verbally which is different from her baseline according to galindo. Patient according to galindo is baseline verbal and alert, though she cannot perform her ADLs without assistance. Results Result Diagram: 12/01/16 0755 12/01/16 0755 Results 24 hrs Laboratory Tests Test 11/30/16 16:38 12/01/16 07:55 White Blood Count 9.5 # 10.0 Red Blood Count 3.01 L 3.34 L Hemoglobin 9.2 L 10.0 L Hematocrit 28.1 L 32.2 L Mean Corpuscular Volume 93.4 96.4 Mean Corpuscular Hemoglobin 30.6 29.9 Mean Corpuscular Hemoglobin Concent 32.7 31.1 L Red Cell Distribution Width 15.9 H 16.2 H Platelet Count 156 146 Mean Platelet Volume 11.5 H 11.9 H Neutrophils % 67.0 71.4 Band Neutrophils % 19.0 H Lymphocytes % 13.0 L 22.4 Monocytes % 1.0 3.8 Eosinophils % 1.6 Neutrophils # 6.4 7.2 Lymphocytes # 1.2 2.3 Monocytes # 0.1 L 0.4 Eosinophils # 0.2 Sodium Level 139 141 Potassium Level 4.3 4.3 Chloride Level 109 112 H Carbon Dioxide Level 21 20 L Anion Gap 13 13 Blood Urea Nitrogen 13 12 Creatinine 0.59 0.55 Glucose Level 77 # 93 Calcium Level 7.3 L 7.6 L Phosphorus Level 2.1 L 1.8 L Magnesium Level 1.5 L 1.5 L C-Reactive Protein 18.5 H Basophils % 0.2 Nucleated Red Blood Cells % 0.0 Basophils # 0.0 Nucleated Red Blood Cells # 0.0 Medications Medications Current Medications Lorazepam (Ativan) 0.5 mg Q6H PRN IV ANXIETY Last administered on 11/25/16 02: 05; Admin Dose 0.5 MG; Start 11/24/16 at 21:30; Status Future Hold Nitroglycerin (Nitroglycerin (Sl Tab) 0.4 Mg) 1 tab Q5M PRN SL CHEST PAIN; Start 11/24/16 at 21:30 Acetaminophen (Tylenol Tab) 650 mg Q6H PRN PO PAIN LEVEL 1-3 OR FEVER; Start at 21:30 Acetaminophen/ Hydrocodone Bitart ([place] (5/325)) 1 tab Q6H PRN PO PAIN LEVEL 4 -6; Start 11/24/16 at 21:30 Famotidine (Pepcid) 10 mg Q48H PO Last administered on 11/29/16 08:15; Admin Dose 10 MG; Start 11/25/16 at 09:00 Amlodipine Besylate (Norvasc) 5 mg DAILY PO Last administered on 11/29/16 08: 15; Admin Dose 5 MG; Start 11/25/16 at 09:00 Atenolol (Tenormin) 25 mg BID PO Last administered on 11/29/16 08:15; Admin Dose 25 MG; Start 11/25/16 at 09:00 Hydralazine HCl 5 mg 5 mg Q6H PRN IV SBP>160; Start 11/25/16 at 10:30 Aztreonam 0.5 gm/ Sodium Chloride 50 ml @ 100 mls/hr Q12 IV Last administered on 12/01/16 08:22; Admin Dose 100 MLS/HR; Start 11/29/16 at 21:30 Dextrose/Sodium Chloride (D5-NS) 1,000 ml @ 50 mls/hr Q20H IV Last administered on 11/30/16 20:13; Admin Dose 50 MLS/HR; Start 11/30/16 at 20:00 KG BEJARANO Dec 01, 2016 16:11
[2016-12-01] MEDS: LEVOTHYROXINE 25 MCG TAB PO SCH (19:55)
[2016-12-02] VITALS (11 sets, daily range): BP systolic 121–153; BP diastolic 66–91; PULSE 96–114; RESP 18–22
--- NOTE | 2016-12-02 06:10 | PN ---
Date/Time of Note Date/Time of Note DATE: 12/02/16 TIME: 06:04 Assessment/Plan VTE Prophylaxis VTE Prophylaxis Intervention: anti-embolic stocking Lines/Catheters [facility] Type [facility]from [facility]): Peripheral IV Urinary Cath still in place: Yes Reason Cath still needed: other (indicate) (Discontinuing Patricio catheter) Assessment/Plan Problems: (1) Dysphagia Status: Acute Comment: Patient failed swallowing evaluation therefore we are treating this cautiously. Ultimately will need the input from the family as they are making decisions for her care. For now on IV fluids Qualifiers: Dysphagia type: unspecified Qualified Code: R13.10 - Dysphagia, unspecified type (2) Altered mental status Status: Acute Comment: Patient is arousable but is not speaking which is a change according the family's information in the chart from roughly 2-3 weeks ago. We will try and evaluate for this but this may be rather ominous sign in this elderly woman Qualifiers: Altered mental status type: disorientation Qualified Code: R41.0 - Disorientation (3) UTI (urinary tract infection) Status: Acute Comment: She has a Patricio catheter and is on antibiotics. Awaiting final sensitivities and identification Qualifiers: Urinary tract infection type: acute cystitis (4) Debility Status: Chronic Comment: The patient has not been ambulatory without significant assistance or assistance in ADLs for some time. In addition she appears to have some degree of protein calorie malnutrition. On certain she was never a large person will look into this. Specifically will make sure she does not have hypocortisolism (5) Anemia Status: Chronic Comment: Basic evaluation. 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 She is biochemically euthyroid on her current level of replacement therapy. Will make sure she does not have coexistent low cortisol state (7) Essential hypertension Status: Chronic Comment: Controlled (8) Acute kidney injury Status: Resolved (9) Hyperkalemia Status: Resolved Subjective 24 Hr Interval Summary Free Text/Dictation Patient is arousable but does not answer questions Subjective hx not possible: pt non-verbal Exam/Review of Systems Vital Signs Vitals Vital Signs Date Time Temp Pulse Resp B/P Pulse Ox O2 Delivery O2 Flow Rate FiO2 12/02/16 04:00 98 12/02/16 03:46 98.0 20 121/90 97 12/01/16 21:18 Nasal Cannula 3.0 Intake and Output 12/01/16 12/01/16 12/02/16 15:00 23:00 07:00 Intake Total 100 ml 750 ml Output Total 600 ml Balance 100 ml 150 ml Exam Arousable Neck: non-tender, other (Thyroid without nodules of firm), supple Respiratory: clear to auscultation, normal air movement Cardiovascular: nl pulses, regular rate and rhythm Gastrointestinal: nl liver, spleen, non-tender, soft Results Result Diagram: 12/01/16 0755 12/01/16 0755 Results 24 hrs Laboratory Tests Test 12/01/16 07:55 White Blood Count 10.0 Red Blood Count 3.34 L Hemoglobin 10.0 L Hematocrit 32.2 L Mean Corpuscular Volume 96.4 Mean Corpuscular Hemoglobin 29.9 Mean Corpuscular Hemoglobin Concent 31.1 L Red Cell Distribution Width 16.2 H Platelet Count 146 Mean Platelet Volume 11.9 H Neutrophils % 71.4 Lymphocytes % 22.4 Monocytes % 3.8 Eosinophils % 1.6 Basophils % 0.2 Nucleated Red Blood Cells % 0.0 Neutrophils # 7.2 Lymphocytes # 2.3 Monocytes # 0.4 Eosinophils # 0.2 Basophils # 0.0 Nucleated Red Blood Cells # 0.0 Sodium Level 141 Potassium Level 4.3 Chloride Level 112 H Carbon Dioxide Level 20 L Anion Gap 13 Blood Urea Nitrogen 12 Creatinine 0.55 Glucose Level 93 Calcium Level 7.6 L Phosphorus Level 1.8 L Magnesium Level 1.5 L Medications Medications Current Medications Lorazepam (Ativan) 0.5 mg Q6H PRN IV ANXIETY Last administered on 11/25/16t 02: 05; Admin Dose 0.5 MG; Start 11/24/16 at 21:30; Status Future Hold Nitroglycerin (Nitroglycerin (Sl Tab) 0.4 Mg) 1 tab Q5M PRN SL CHEST PAIN; Start 11/24/16 at 21:30 Acetaminophen (Tylenol Tab) 650 mg Q6H PRN PO PAIN LEVEL 1-3 OR FEVER; Start at 21:30 Acetaminophen/ Hydrocodone Bitart ([place] (5/325)) 1 tab Q6H PRN PO PAIN LEVEL 4 -6; Start 11/24/16 at 21:30 Famotidine (Pepcid) 10 mg Q48H PO Last administered on 11/29/16 08:15; Admin Dose 10 MG; Start 11/25/16 at 09:00 Amlodipine Besylate (Norvasc) 5 mg DAILY PO Last administered on 11/29/16 08: 15; Admin Dose 5 MG; Start 11/25/16 at 09:00 Atenolol (Tenormin) 25 mg BID PO Last administered on 11/29/16 08:15; Admin Dose 25 MG; Start 11/25/16 at 09:00 Hydralazine HCl 5 mg 5 mg Q6H PRN IV SBP>160; Start 11/25/16 at 10:30 Aztreonam 0.5 gm/ Sodium Chloride 50 ml @ 100 mls/hr Q12 IV Last administered on 12/01/16 20:03; Admin Dose 100 MLS/HR; Start 11/29/16 at 21:30 Dextrose/Sodium Chloride (D5-NS) 1,000 ml @ 50 mls/hr Q20H IV Last administered on 12/01/16 16:00; Admin Dose 50 MLS/HR; Start 11/30/16 at 20:00 MARQUIS BATEMAN MD Dec 02, 2016 06:10
[2016-12-02 08:18] LABS: CALCIUM 7.1 mg/dl (8.4-10.2); CREATININE 0.52 mg/dl (0.44-1.00); MAGNESIUM 1.9 mg/dl (1.7-2.5); PHOSPHORUS 1.7 mg/dl (2.5-4.9); POTASSIUM 3.9 mmol/L (3.5-5.1)
[2016-12-02 08:32] LABS: IRON 14 ug/dl (35-150)
[2016-12-02 08:42] LABS: TOTAL IRON BINDING CAPACITY 152 ug/dl (241-421)
[2016-12-02] MEDS: AMLODIPINE 5 MG TAB PO SCH (08:46)
[2016-12-02] MEDS: ATENOLOL 25 MG TAB PO SCH ×2 (08:48→21:00)
[2016-12-02] MEDS: AZTREONAM 0.5 GM in SOD CHLORIDE 0.9% 50 ML IV SCH ×2 (09:03→21:02)
--- NOTE | 2016-12-02 10:02 | CONS ---
Date/Time of Note Date/Time of Note DATE: 12/02/16 TIME: 10:00 Consult Date/Type/Reason Admit Date/Time Nov 24, 2016 at 21:04 Initial Consult Date Subjective pt. seen and examined, all noted. PE: HEENT: Head is normocephalic. NECK: Supple. HEART: Regular rate. LUNGS: Show diminished breath sounds at base. ABDOMEN: Soft, nontender to palpation without rebound or guarding. EXTREMITIES: Negative for clubbing, cyanosis, or edema. DERMATOLOGIC: No rashes. MUSCULOSKELETAL: No joint effusions. NEUROLOGIC: No change in exam. Objective Vital Signs Date Time Temp Pulse Resp B/P Pulse Ox O2 Delivery O2 Flow Rate FiO2 12/02/16 08:06 96 12/02/16 07:50 98.5 20 132/91 97 12/02/16 07:43 Nasal Cannula 3.0 Intake and Output 12/01/16 12/01/16 12/02/16 15:00 23:00 07:00 Intake Total 100 ml 750 ml Output Total 600 ml Balance 100 ml 150 ml Results/Medications Result Diagram: 12/01/16 0755 12/02/16 0745 Results 24 hrs Laboratory Tests Test 12/02/16 07:45 Sodium Level 138 Potassium Level 3.9 Chloride Level 114 H Carbon Dioxide Level 22 Anion Gap 6 L Blood Urea Nitrogen 9 Creatinine 0.52 Glucose Level 115 Calcium Level 7.1 L Phosphorus Level 1.7 L Magnesium Level 1.9 Iron Level 14 L Total Iron Binding Capacity 152 L Percent Iron Saturation 9 L Ferritin 126.0 Vitamin B12 Level 485 Random Cortisol 13.6 Medications Current Medications Lorazepam (Ativan) 0.5 mg Q6H PRN IV ANXIETY Last administered on 11/25/16t 02: 05; Admin Dose 0.5 MG; Start 11/24/16 at 21:30; Status Future Hold Nitroglycerin (Nitroglycerin (Sl Tab) 0.4 Mg) 1 tab Q5M PRN SL CHEST PAIN; Start 11/24/16 at 21:30 Acetaminophen (Tylenol Tab) 650 mg Q6H PRN PO PAIN LEVEL 1-3 OR FEVER; Start at 21:30 Acetaminophen/ Hydrocodone Bitart ([place] (5/325)) 1 tab Q6H PRN PO PAIN LEVEL 4 -6; Start 4/21/17 at 21:30 Famotidine (Pepcid) 10 mg Q48H PO Last administered on 11/29/16 08:15; Admin Dose 10 MG; Start 11/25/16 at 09:00 Amlodipine Besylate (Norvasc) 5 mg DAILY PO Last administered on 11/29/16 08: 15; Admin Dose 5 MG; Start 11/25/16 at 09:00 Atenolol (Tenormin) 25 mg BID PO Last administered on 11/29/16 08:15; Admin Dose 25 MG; Start 11/25/16 at 09:00 Hydralazine HCl 5 mg 5 mg Q6H PRN IV SBP>160; Start 11/25/16 at 10:30 Aztreonam 0.5 gm/ Sodium Chloride 50 ml @ 100 mls/hr Q12 IV Last administered on 12/02/16 09:03; Admin Dose 100 MLS/HR; Start 11/29/16 at 21:30 Dextrose/Sodium Chloride (D5-NS) 1,000 ml @ 50 mls/hr Q20H IV Last administered on 12/01/16 16:00; Admin Dose 50 MLS/HR; Start 11/30/16 at 20:00 DAJUAN CARDOZA MD Dec 02, 2016 10:02
[2016-12-02] MEDS ORDERED: POTASSIUM PHOSPHATE 15 MM in SOD CHLORIDE 0.9% 250 ML IVPB ONE (11:00)
[2016-12-02] MEDS: DEXTROSE 5%-0.9% NACL 1,000 ML IV SCH ×2 (12:00→17:55)
[2016-12-02 16:48] LABS: RAPID PLASMA REAGIN REACTIVE (NR)
[2016-12-03] VITALS (10 sets, daily range): BP systolic 131–146; BP diastolic 65–90; PULSE 86–108; RESP 17–19
[2016-12-03] MEDS: LEVOTHYROXINE 25 MCG TAB PO SCH (06:20)
[2016-12-03] MEDS: DEXTROSE 5%-0.9% NACL 1,000 ML IV SCH ×2 (08:00→16:07)
--- NOTE | 2016-12-03 08:43 | PN ---
Date/Time of Note Date/Time of Note DATE: 12/03/16 TIME: 08:39 Assessment/Plan VTE Prophylaxis VTE Prophylaxis Intervention: anti-embolic stocking Lines/Catheters IV [facility]ter Type (from [email or web address] Peripheral IV Urinary Cath still in place: No Assessment/Plan Problems: (1) Essential hypertension Status: Chronic Comment: Adequately controlled on current medications. (2) Acquired hypothyroidism Status: Chronic Comment: She is stable on replacement therapy. There is a possibility that hypothyroidism can coexist with hypo-cortisolism. Her random serum cortisol level is not at a level to make sense in acute care hospital setting. While this is not the most sensitive test it would be an indication to perform a Cortrosyn stimulation test. (3) Iron deficiency anemia Status: Chronic Comment: Replete with IV iron therapy for expeditious therapeutic benefit Qualifiers: Iron deficiency anemia type: unspecified iron deficiency Qualified Code: D50.9 - Iron deficiency anemia, unspecified iron deficiency anemia type (4) Abnormal cortisol level Status: Acute Comment: This may be a red garcia, but it needs to be pursued. If she does have hypoadrenalism it may bring her back a certain level to fix it (5) Dysphagia Status: Acute Comment: Pending formalized swallowing evaluation. Try to get everything else optimized Qualifiers: Dysphagia type: unspecified Qualified Code: R13.10 - Dysphagia, unspecified type (6) Debility Status: Chronic Comment: This is a chronic issue. Make sure there is no metabolic issue (7) UTI (urinary tract infection) Status: Acute Comment: On treatment Qualifiers: Urinary tract infection type: acute cystitis (8) Altered mental status Status: Acute Comment: Noted and in workup Qualifiers: Altered mental status type: disorientation Qualified Code: R41.0 - Disorientation Subjective 24 Hr Interval Summary Free Text/Dictation Patient is minimally responsive and does not converse Exam/Review of Systems Vital Signs Vitals Vital Signs Date Time Temp Pulse Resp B/P Pulse Ox O2 Delivery O2 Flow Rate FiO2 12/03/16 08:12 101 12/03/16 07:51 Nasal Cannula 3.0 12/03/16 07:19 98.1 18 136/65 97 Intake and Output 12/02/16 12/02/16 12/03/16 15:00 23:00 07:00 Intake Total 50 ml 1400 ml 250 ml Balance 50 ml 1400 ml 250 ml Exam Constitutional: non-verbal Head: atraumatic, normocephalic Neck: non-tender, supple Respiratory: clear to auscultation, normal air movement Cardiovascular: nl pulses, regular rate and rhythm Gastrointestinal: nl liver, spleen, non-tender, soft Skin: other (Somewhat darkly pigmented) Results Result Diagram: 12/01/16 0755 12/02/16 0745 Medications Medications Current Medications Lorazepam (Ativan) 0.5 mg Q6H PRN IV ANXIETY Last administered on 11/25/16 02: 05; Admin Dose 0.5 MG; Start 11/24/16 at 21:30; Status Future Hold Nitroglycerin (Nitroglycerin (Sl Tab) 0.4 Mg) 1 tab Q5M PRN SL CHEST PAIN; Start 11/24/16 at 21:30 Acetaminophen (Tylenol Tab) 650 mg Q6H PRN PO PAIN LEVEL 1-3 OR FEVER; Start at 21:30 Acetaminophen/ Hydrocodone Bitart ([place] (5/325)) 1 tab Q6H PRN PO PAIN LEVEL 4 -6; Start 11/24/16 at 21:30 Famotidine (Pepcid) 10 mg Q48H PO Last administered on 11/29/16 08:15; Admin Dose 10 MG; Start 11/25/16 at 09:00 Amlodipine Besylate (Norvasc) 5 mg DAILY PO Last administered on 11/29/16 08: 15; Admin Dose 5 MG; Start 11/25/16 at 09:00 Atenolol (Tenormin) 25 mg BID PO Last administered on 11/29/16 08:15; Admin Dose 25 MG; Start 11/25/16 at 09:00 Hydralazine HCl 5 mg 5 mg Q6H PRN IV SBP>160; Start 11/25/16 at 10:30 Aztreonam 0.5 gm/ Sodium Chloride 50 ml @ 100 mls/hr Q12 IV Last administered on 12/02/16 21:02; Admin Dose 100 MLS/HR; Start 11/29/16 at 21:30 Dextrose/Sodium Chloride 1,000 ml @ 50 mls/hr Q20H IV Last administered on 17:55; Admin Dose 50 MLS/HR; Start 11/30/16 at 20:00 Ferric Sodium Gluconate Complex/ Sodium Chloride (Ferrlecit/NS) 110 ml @ 100 mls/hr Q24H IVPB ; Start 12/03/16 at 09:00; Stop 12/05/16 at 10:05; Status UNV Cosyntropin (Cortrosyn) 0.25 mg ONCE ONCE IV ; Start 12/03/16 at 11:00; Stop at 11:01; Status UNV MARQUIS BATEMAN MD Dec 03, 2016 08:43
[2016-12-03] MEDS: AMLODIPINE 5 MG TAB PO SCH (09:00)
[2016-12-03] MEDS: ATENOLOL 25 MG TAB PO SCH ×2 (09:00→20:04)
[2016-12-03] MEDS: FAMOTIDINE 20 MG TAB PO SCH (09:00)
--- NOTE | 2016-12-03 09:03 | CONS ---
Date/Time of Note Date/Time of Note DATE: 12/03/16 TIME: 09:02 Consult Date/Type/Reason Admit Date/Time Nov 24, 2016 at 21:04 Subjective pt. with no new c/o. good uop. tolerating pt/ot. PE: GENERAL: No acute distress, comfortable, drowsy HEENT: Pupils equal, reactive. No scleral icterus. Mucous membranes are moist. NECK: Supple, no JVD. PULMONARY: Normal respiratory effort. No wheezing. HEART: S1, S2 present and regular. ABDOMEN: Soft, minimally distended; however, baseline. No rebound, guarding, rigidity. Minimal tenderness to deep palpation. Drain (serous) EXTREMITIES: No edema. VASCULAR: Cap refill less than 2 seconds. NEUROLOGIC: Moves all 4 extremities grossly. Objective Vital Signs Date Time Temp Pulse Resp B/P Pulse Ox O2 Delivery O2 Flow Rate FiO2 12/03/16 08:12 101 12/03/16 07:51 Nasal Cannula 3.0 12/03/16 07:19 98.1 18 136/65 97 Intake and Output 12/02/16 12/02/16 12/03/16 15:00 23:00 07:00 Intake Total 50 ml 1400 ml 250 ml Balance 50 ml 1400 ml 250 ml Results/Medications Result Diagram: 12/01/16 0755 12/02/16 0745 Medications Current Medications Lorazepam (Ativan) 0.5 mg Q6H PRN IV ANXIETY Last administered on 11/25/16 02: 05; Admin Dose 0.5 MG; Start 11/24/16 at 21:30; Status Future Hold Nitroglycerin (Nitroglycerin (Sl Tab) 0.4 Mg) 1 tab Q5M PRN SL CHEST PAIN; Start 11/24/16 at 21:30 Acetaminophen (Tylenol Tab) 650 mg Q6H PRN PO PAIN LEVEL 1-3 OR FEVER; Start at 21:30 Acetaminophen/ Hydrocodone Bitart ([place] (5/325)) 1 tab Q6H PRN PO PAIN LEVEL 4 -6; Start 11/24/16 at 21:30 Famotidine (Pepcid) 10 mg Q48H PO Last administered on 11/29/16 08:15; Admin Dose 10 MG; Start 11/25/16 at 09:00 Amlodipine Besylate (Norvasc) 5 mg DAILY PO Last administered on 11/29/16 08: 15; Admin Dose 5 MG; Start 11/25/16 at 09:00 Atenolol (Tenormin) 25 mg BID PO Last administered on 11/29/16 08:15; Admin Dose 25 MG; Start 11/25/16 at 09:00 Hydralazine HCl 5 mg 5 mg Q6H PRN IV SBP>160; Start 11/25/16 at 10:30 Aztreonam 0.5 gm/ Sodium Chloride 50 ml @ 100 mls/hr Q12 IV Last administered on 12/02/16 21:02; Admin Dose 100 MLS/HR; Start 11/29/16 at 21:30 Dextrose/Sodium Chloride 1,000 ml @ 50 mls/hr Q20H IV Last administered on 17:55; Admin Dose 50 MLS/HR; Start 11/30/16 at 20:00 Ferric Sodium Gluconate Complex/ Sodium Chloride (Ferrlecit/NS) 110 ml @ 100 mls/hr Q24H IVPB ; Start 12/03/16 at 10:00; Stop 12/05/16 at 11:05 Cosyntropin (Cortrosyn) 0.25 mg ONCE ONCE IV ; Start 12/03/16 at 11:00; Stop at 11:01 Assessment/Plan Chief Complaint/Hosp Course 1. Nonoliguric acute kidney injury with unknown baseline creatinine. Etiology secondary to hemodynamics. Renal function is improved. Continue current treatment plan, supportive care, renally dose medications. 2. Hyperkalemia, resolved. 3. Hypophosphatemia, hypomagnesemia. Will replete with K-Phos and magnesium sulfate. 4. Acute encephalopathy and dementia. The patient remains confused. Continue to monitor. 5. Dysphagia. The patient's family is going to determine whether to have percutaneous endoscopic gastrostomy placement. Monitor. 6. Anemia. Continue to monitor hemoglobin and hematocrit levels. Problems: DAJUAN CARDOZA MD Dec 03, 2016 09:03
[2016-12-03] MEDS: AZTREONAM 0.5 GM in SOD CHLORIDE 0.9% 50 ML IV SCH ×2 (09:16→20:23)
[2016-12-03] MEDS: SOD FERRIC GLUC COMPLX 125 MG in SOD CHLORIDE 0.9% 100 ML IVPB SCH (10:51)
[2016-12-03] MEDS ORDERED: COSYNTROPIN 0.25 MG INJ IV ONE (11:00)
[2016-12-04] VITALS (12 sets, daily range): BP systolic 122–163; BP diastolic 70–88; PULSE 89–103; RESP 16–20
[2016-12-04] MEDS: DEXTROSE 5%-0.9% NACL 1,000 ML IV SCH ×2 (04:13→12:56)
[2016-12-04] MEDS: LEVOTHYROXINE 25 MCG TAB PO SCH (05:17)
[2016-12-04] MEDS: AMLODIPINE 5 MG TAB PO SCH (08:59)
[2016-12-04] MEDS: ATENOLOL 25 MG TAB PO SCH ×2 (09:00→20:36)
[2016-12-04] MEDS: AZTREONAM 0.5 GM in SOD CHLORIDE 0.9% 50 ML IV SCH ×2 (09:04→20:41)
[2016-12-04] MEDS: SOD FERRIC GLUC COMPLX 125 MG in SOD CHLORIDE 0.9% 100 ML IVPB SCH (11:24)
--- NOTE | 2016-12-04 13:18 | PN ---
DATE: 12/04/2016 SUBJECTIVE: The patient remains confused and lethargic. No other events noted. The patient is pen ding possible G-tube placement. OBJECTIVE: VITAL SIGNS: Blood pressure 129/80, respirations 20, pulse 104, temperature 98.6. HEENT: Normocephalic. NECK: Supple. HEART: Regular rate. LUNGS: Show diminished breath sounds at base. ABDOMEN: Soft, nontender to palpation without rebound or guarding. EXTREMITIES: Negative for clubbing, cyanosis, edema. DERMATOLOGIC: No rashes. MUSCULOSKELETAL: No joint effusions. NEUROLOGIC: No change in exam. MEDICATIONS: Reviewed. LABORATORY DATA: Laboratory data have been reviewed. ASSESSMENT AND PLAN: 1. Nonoliguric acute kidney injury with unknown baseline creatinine. Etiology secondary to hemodyn amics. Renal function has resolved. Continue continuous care and renally dose. 2. Electrolyte abnormality. Continue to monitor and replete. 3. Acute encephalopathy and dementia. The patient remains confused. Continue to monitor. 4. Dysphagia, consider possible G-tube placement. 5. Anemia. Continue to monitor hemoglobin and hematocrit levels. 6. Hyperkalemia, resolved. Dictated By: MEGGAN KUMAR/AYAKA Conf#: [id number] DID#: [id number]
--- NOTE | 2016-12-04 14:44 | PN ---
Date/Time of Note Date/Time of Note DATE: 12/04/16 TIME: 14:41 Assessment/Plan VTE Prophylaxis VTE Prophylaxis Intervention: LMWH Lines/Catheters [facility]ter [facility] (from [facility] Peripheral IV Urinary Cath still in place: No Assessment/Plan Chief Complaint/Hosp Course Assessment 1. Hypoxemic respiratory failure 2. Dementia with dysphagia 3. Possible aspiration pneumonia 4. 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 Diabetes mellitus 6. Burnt out Alexis's thyroiditis Plan 1. Family discussing goals of care including comfort care 2. Continue pulmonary toilet 3. Continue IV fluids 4. Continue insulin as needed 5. DVT and GI prophylaxis Disposition Prognosis very poor would agree with palliative care approach. We'll discuss with Dr. Mcmanus Problems: Subjective 24 Hr Interval Summary Free Text/Dictation Patient remains confused mild respiratory distress moderate secretions which she is having difficulty clearing Exam/Review of Systems Vital Signs Vitals Vital Signs Date Time Temp Pulse Resp B/P Pulse Ox O2 Delivery O2 Flow Rate FiO2 12/04/16 12:29 102 12/04/16 11:34 98.0 20 135/76 96 12/04/16 08:25 Nasal Cannula 3.0 Intake and Output 12/03/16 12/03/16 12/04/16 15:00 23:00 07:00 Intake Total 160 ml 1000 ml Balance 160 ml 1000 ml Exam GENERAL: Frail elderly lady in no acute distress audible rales VITAL SIGNS: per chart NECK: Supple. No JVD or lymphadenopathy. CARDIAC EXAM: S1, S2. No added sounds or murmurs. CHEST: Diminished air entry bilaterally with rales ABDOMEN: Soft, nontender. No guarding or rebound. EXTREMITIES: No cyanosis, clubbing or edema. NEUROLOGIC: Generalized weakness. Results Result Diagram: 12/01/16 0755 12/02/16 0745 Medications Medications Current Medications Lorazepam (Ativan) 0.5 mg Q6H PRN IV ANXIETY Last administered on 11/25/16t 02: 05; Admin Dose 0.5 MG; Start 11/24/16 at 21:30; Status Future Hold Nitroglycerin (Nitroglycerin (Sl Tab) 0.4 Mg) 1 tab Q5M PRN SL CHEST PAIN; Start 11/24/16 at 21:30 Acetaminophen (Tylenol Tab) 650 mg Q6H PRN PO PAIN LEVEL 1-3 OR FEVER; Start at 21:30 Acetaminophen/ Hydrocodone Bitart ([place] (5/325)) 1 tab Q6H PRN PO PAIN LEVEL 4 -6; Start 11/24/16 at 21:30 Famotidine (Pepcid) 10 mg Q48H PO Last administered on 11/29/16 08:15; Admin Dose 10 MG; Start 11/25/16 at 09:00 Amlodipine Besylate (Norvasc) 5 mg DAILY PO Last administered on 11/29/16 08: 15; Admin Dose 5 MG; Start 11/25/16 at 09:00 Atenolol (Tenormin) 25 mg BID PO Last administered on 11/29/16 08:15; Admin Dose 25 MG; Start 11/25/16 at 09:00 Hydralazine HCl 5 mg 5 mg Q6H PRN IV SBP>160; Start 11/25/16 at 10:30 Aztreonam 0.5 gm/ Sodium Chloride 50 ml @ 100 mls/hr Q12 IV Last administered on 12/04/16 09:04; Admin Dose 100 MLS/HR; Start 11/29/16 at 21:30 Dextrose/Sodium Chloride 1,000 ml @ 50 mls/hr Q20H IV Last administered on 12/04 12:56; Admin Dose 50 MLS/HR; Start 11/30/16 at 20:00 Ferric Sodium Gluconate Complex/ Sodium Chloride (Ferrlecit/NS) 110 ml @ 100 mls/hr Q24H IVPB Last administered on 12/04/16 11:24; Admin Dose 100 MLS/HR; Start 12/03/16 at 10:00; Stop 12/05/16 at 11:05 DAMIAN CASPER MD, [facility] December 04, 2016 14:44
[2016-12-04] MEDS: ENOXAPARIN 30 MG/0.3 ML SYG SC SCH (15:05)
[2016-12-05] VITALS (11 sets, daily range): BP systolic 124–162; BP diastolic 58–84; PULSE 86–110; RESP 16–22
[2016-12-05] MEDS: LEVOTHYROXINE 25 MCG TAB PO SCH (06:12)
[2016-12-05 07:21] LABS: ADD SCAN DIFF NO
[2016-12-05 07:38] LABS: ABNORMAL IP MESSAGE 1; BASOPHILS % 0.2 % (0.0-2.0); EOSINOPHILS # 0.1 10^3/ul (0.0-0.5); EOSINOPHILS % 0.8 % (0.0-7.0); HEMATOCRIT 26.4 % (37.0-47.0); HEMOGLOBIN 8.5 g/dl (12.0-16.0); LYMPHOCYTES # 1.1 10^3/ul (0.8-2.9); LYMPHOCYTES % 17.1 % (15.0-51.0); MEAN CORPUSCULAR HEMOGLOBIN 29.6 pg (29.0-33.0); MEAN CORPUSCULAR HGB CONC 32.2 g/dl (32.0-37.0); MEAN PLATELET VOLUME 11.4 fl (7.4-10.4); MONOCYTE # 0.3 10^3/ul (0.3-0.9); MONOCYTES % 5.3 % (0.0-11.0); NEUTROPHIL # 4.7 10^3/ul (1.6-7.5); NEUTROPHILS % 75.8 % (39.0-77.0); RED BLOOD COUNT 2.87 10^6/ul (4.20-5.40); RED CELL DISTRIBUTION WIDTH 15.5 % (11.5-14.5); WHITE BLOOD COUNT 6.2 10^3/ul (4.8-10.8)
[2016-12-05 07:51] LABS: CALCIUM 6.5 mg/dl (8.4-10.2); CREATININE 0.51 mg/dl (0.44-1.00); MAGNESIUM 1.1 mg/dl (1.7-2.5); PHOSPHORUS 1.5 mg/dl (2.5-4.9)
[2016-12-05] MEDS: ATENOLOL 25 MG TAB PO SCH ×2 (09:00→21:00)
[2016-12-05] MEDS: AMLODIPINE 5 MG TAB PO SCH (09:00)
[2016-12-05] MEDS: FAMOTIDINE 20 MG TAB PO SCH (09:00)
[2016-12-05] MEDS: AZTREONAM 0.5 GM in SOD CHLORIDE 0.9% 50 ML IV SCH ×2 (09:40→21:45)
[2016-12-05] MEDS: SOD FERRIC GLUC COMPLX 125 MG in SOD CHLORIDE 0.9% 100 ML IVPB SCH (09:40)
[2016-12-05] MEDS: ENOXAPARIN 30 MG/0.3 ML SYG SC SCH (09:40)
[2016-12-05] MEDS ORDERED: MAGNESIUM SULFATE 2 GM/50 ML 50 ML IVPB ONE (10:30)
[2016-12-05 10:34] LABS: PLATELET COUNT 224 10^3/UL (140-415)
[2016-12-05] MEDS: D5W-0.45 NACL + KCL 30 MEQ 1,000 ML IV SCH (11:23)
[2016-12-05] MEDS ORDERED: POTASSIUM CHLORIDE 20 MEQ in SOD CHLORIDE 0.9% 100 ML IVPB ONE (11:30)
--- NOTE | 2016-12-05 11:44 | PN ---
DATE: 12/05/2016 SUBJECTIVE: The patient remains obtunded, confused. No other events noted. OBJECTIVE: VITAL SIGNS: Blood pressure 131/72, respirations 22, pulse 111, temperature 100. HEENT: Head is normocephalic. NECK: Supple. HEART: Regular rate. LUNGS: Show diminished breath sounds at the base. ABDOMEN: Soft, nontender to palpation, no rebound or guarding. EXTREMITIES: Negative for clubbing, cyanosis, no edema. DERMATOLOGIC: No rashes. MUSCULOSKELETAL: No joint effusions. NEUROLOGIC: No change in exam. MEDICATIONS: Reviewed. LABORATORY DATA: Shows sodium 139, potassium 3.0, BUN 5, creatinine 0.51, calcium 6.5, magnesium an d phosphorus 1.56 and 1.1. White count 6.2, hemoglobin 8.5, hematocrit 26.4, platelet count is pend ing. ASSESSMENT AND PLAN: 1. Nonoliguric acute kidney injury with unknown baseline creatinine. Etiology secondary to hemodyn amics. Renal function is improved. Continue to monitor. 2. Hyperphosphatemia, hypokalemia, and hypomagnesemia. We will replete with potassium phosphate, p otassium chloride and magnesium sulfate. Will monitor closely. 3. Dysphagia. The patient currently n.p.o. Consider tube feeding through NG tube or G-tube placem ent. 4. Ischemic encephalopathy and dementia. Continue to monitor. 5. Anemia. Continue to monitor hemoglobin and hematocrit levels. Dictated By: MEGGAN KUMAR/AYAKA Conf#: [id number] DID#: [id number]
[2016-12-05] MEDS ORDERED: POTASSIUM PHOSPHATE 20 MEQ in SOD CHLORIDE 0.9% 250 ML IVPB ONE (12:30)
[2016-12-05 13:24] LABS: TB-NIL 0.02 IU/mL
--- NOTE | 2016-12-05 14:12 | PN ---
Date/Time of Note Date/Time of Note DATE: 12/05/16 TIME: 14:10 Assessment/Plan VTE Prophylaxis VTE Prophylaxis Intervention: heparin Lines/Catheters IV [facility]from [facility] Peripheral IV Urinary Cath still in place: No Assessment/Plan Chief Complaint/Hosp Course Assessment 1. Hypoxemic respiratory failure 2. Dementia with dysphagia 3. Possible aspiration pneumonia 4. 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 Diabetes mellitus 6. Burnt out Alexis's thyroiditis Plan 1. Family discussing goals of care including comfort care 2. Continue pulmonary toilet 3. Continue IV fluids 4. Continue insulin as needed 5. DVT and GI prophylaxis Disposition Prognosis very poor would agree with palliative care approach. Still no decision Problems: Subjective 24 Hr Interval Summary Free Text/Dictation No changes Exam/Review of Systems Vital Signs Vitals Vital Signs Date Time Temp Pulse Resp B/P Pulse Ox O2 Delivery O2 Flow Rate FiO2 12/05/16 13:03 86 12/05/16 11:26 99.4 20 124/58 99 12/05/16 08:00 Nasal Cannula 3.0 Intake and Output 12/04/16 12/04/16 12/05/16 15:00 23:00 07:00 Intake Total 50 ml 520 ml Balance 50 ml 520 ml Exam GENERAL: Frail elderly lady in no acute distress audible rales VITAL SIGNS: per chart NECK: Supple. No JVD or lymphadenopathy. CARDIAC EXAM: S1, S2. No added sounds or murmurs. CHEST: Diminished air entry bilaterally with rales ABDOMEN: Soft, nontender. No guarding or rebound. EXTREMITIES: No cyanosis, clubbing or edema. NEUROLOGIC: Generalized weakness. Results Result Diagram: 12/05/16 0535 12/05/16 0535 Results 24 hrs Laboratory Tests Test 12/05/16 05:35 White Blood Count 6.2 # Red Blood Count 2.87 L Hemoglobin 8.5 L Hematocrit 26.4 L Mean Corpuscular Volume 92.0 Mean Corpuscular Hemoglobin 29.6 Mean Corpuscular Hemoglobin Concent 32.2 Red Cell Distribution Width 15.5 H Platelet Count 224 # Mean Platelet Volume 11.4 H Neutrophils % 75.8 Lymphocytes % 17.1 Monocytes % 5.3 Eosinophils % 0.8 Basophils % 0.2 Nucleated Red Blood Cells % 0.0 Neutrophils # 4.7 Lymphocytes # 1.1 Monocytes # 0.3 Eosinophils # 0.1 Basophils # 0.0 Nucleated Red Blood Cells # 0.0 Sodium Level 139 Potassium Level 3.0 L Chloride Level 109 Carbon Dioxide Level 23 Anion Gap 10 Blood Urea Nitrogen 5 L Creatinine 0.51 Glucose Level 100 Calcium Level 6.5 L Phosphorus Level 1.5 L Magnesium Level 1.1 L Medications Medications Current Medications Lorazepam (Ativan) 0.5 mg Q6H PRN IV ANXIETY Last administered on 11/25/16 02: 05; Admin Dose 0.5 MG; Start 11/24/16 at 21:30; Status Future Hold Nitroglycerin (Nitroglycerin (Sl Tab) 0.4 Mg) 1 tab Q5M PRN SL CHEST PAIN; Start 11/24/16 at 21:30 Acetaminophen (Tylenol Tab) 650 mg Q6H PRN PO PAIN LEVEL 1-3 OR FEVER; Start at 21:30 Acetaminophen/ Hydrocodone Bitart ([place] (5/325)) 1 tab Q6H PRN PO PAIN LEVEL 4 -6; Start 11/24/16 at 21:30 Famotidine (Pepcid) 10 mg Q48H PO Last administered on 11/29/16 08:15; Admin Dose 10 MG; Start 11/25/16 at 09:00 Amlodipine Besylate (Norvasc) 5 mg DAILY PO Last administered on 11/29/16 08: 15; Admin Dose 5 MG; Start 11/25/16 at 09:00 Atenolol (Tenormin) 25 mg BID PO Last administered on 11/29/16 08:15; Admin Dose 25 MG; Start 11/25/16 at 09:00 Hydralazine HCl 5 mg 5 mg Q6H PRN IV SBP>160; Start 11/25/16 at 10:30 Aztreonam/Sodium Chloride (Azactam/NS) 50 ml @ 100 mls/hr Q12 IV Last administered on 12/05/16 09:40; Admin Dose 100 MLS/HR; Start 11/29/16 at 21:30 Enoxaparin Sodium 30 mg 30 mg DAILY SC Last administered on 12/05/16 09:40; Admin Dose 30 MG; Start 12/04/16 at 15:00 Potassium Chloride/Dextrose/ Sod Cl 1,000 ml @ 40 mls/hr Q24H IV Last administered on 12/05/16 11:23; Admin Dose 40 MLS/HR; Start 12/05/16 at 10:30 Potassium Phosphate/Sodium Chloride (K Phos (Meq)/NS) 254.5455 ml @ 63.636 m... ONCE ONCE IVPB Last administered on 12/05/16 12:26; Admin Dose 63.636 MLS /HR; Start 12/05/16 at 12:30; Stop 12/05/16 at 16:29 DAM[facility] CASPER MD, [facility] December 05, 2016 14:12
[2016-12-06] VITALS (12 sets, daily range): BP systolic 128–160; BP diastolic 62–78; PULSE 79–114; RESP 16–20
[2016-12-06] MEDS: LEVOTHYROXINE 25 MCG TAB PO SCH (07:00)
[2016-12-06 07:37] LABS: CREATININE 0.47 mg/dl (0.44-1.00)
[2016-12-06 07:38] LABS: CALCIUM 6.2 mg/dl (8.4-10.2); PHOSPHORUS 1.9 mg/dl (2.5-4.9)
[2016-12-06 07:39] LABS: MAGNESIUM 1.5 mg/dl (1.7-2.5)
--- NOTE | 2016-12-06 08:47 | CONS ---
Date/Time of Note Date/Time of Note DATE: 12/06/16 TIME: 08:46 Consult Date/Type/Reason Admit Date/Time Nov 24, 2016 at 21:04 Subjective pt. seen and examined good uop. no new c/o. PE: HEENT: Head is normocephalic. NECK: Supple. HEART: Regular rate. LUNGS: Show diminished breath sounds at the base. ABDOMEN: Soft, nontender to palpation, no rebound or guarding. EXTREMITIES: Negative for clubbing, cyanosis, no edema. DERMATOLOGIC: No rashes. MUSCULOSKELETAL: No joint effusions. NEUROLOGIC: No change in exam. Objective Vital Signs Date Time Temp Pulse Resp B/P Pulse Ox O2 Delivery O2 Flow Rate FiO2 12/06/16 08:27 79 12/06/16 07:27 97.8 16 136/74 99 12/05/16 21:00 Nasal Cannula 3.0 Intake and Output 12/05/16 12/05/16 12/06/16 15:00 23:00 07:00 Intake Total 310 ml 564.54 ml 280 ml Balance 310 ml 564.54 ml 280 ml Results/Medications Result Diagram: 12/05/16 0535 12/06/16 0635 Results 24 hrs Laboratory Tests Test 12/06/16 06:35 Sodium Level 140 Potassium Level 3.0 L Chloride Level 107 Carbon Dioxide Level 26 Anion Gap 10 Blood Urea Nitrogen 6 L Creatinine 0.47 Glucose Level 92 Calcium Level 6.2 L Phosphorus Level 1.9 L Magnesium Level 1.5 L Medications Current Medications Lorazepam (Ativan) 0.5 mg Q6H PRN IV ANXIETY Last administered on 11/25/16t 02: 05; Admin Dose 0.5 MG; Start 11/24/16 at 21:30; Status Future Hold Nitroglycerin (Nitroglycerin (Sl Tab) 0.4 Mg) 1 tab Q5M PRN SL CHEST PAIN; Start 11/24/16 at 21:30 Acetaminophen (Tylenol Tab) 650 mg Q6H PRN PO PAIN LEVEL 1-3 OR FEVER; Start at 21:30 Acetaminophen/ Hydrocodone Bitart ([place] (5/325)) 1 tab Q6H PRN PO PAIN LEVEL 4 -6; Start 11/24/16 at 21:30 Famotidine (Pepcid) 10 mg Q48H PO Last administered on 11/29/16 08:15; Admin Dose 10 MG; Start 11/25/16 at 09:00 Amlodipine Besylate (Norvasc) 5 mg DAILY PO Last administered on 11/29/16 08: 15; Admin Dose 5 MG; Start 11/25/16 at 09:00 Atenolol (Tenormin) 25 mg BID PO Last administered on 11/29/16 08:15; Admin Dose 25 MG; Start 11/25/16 at 09:00 Hydralazine HCl 5 mg 5 mg Q6H PRN IV SBP>160; Start 11/25/16 at 10:30 Aztreonam/Sodium Chloride (Azactam/NS) 50 ml @ 100 mls/hr Q12 IV Last administered on 12/05/16 21:45; Admin Dose 100 MLS/HR; Start 11/29/16 at 21:30 Enoxaparin Sodium 30 mg 30 mg DAILY SC Last administered on 12/05/16 09:40; Admin Dose 30 MG; Start 12/04/16 at 15:00 Potassium Chloride/Dextrose/ Sod Cl (D5-1/2ns + KCl 30 Meq) 1,000 ml @ 40 mls/ hr Q24H IV Last administered on 12/05/16 11:23; Admin Dose 40 MLS/HR; Start 12/05/16 at 10:30 Assessment/Plan Chief Complaint/Hosp Course 1. Nonoliguric acute kidney injury with unknown baseline creatinine. Etiology secondary to hemodynamics. Renal function is improved. Continue current treatment plan, supportive care, renally dose medications. 2. hypokalemia, low mg, low phos- see orders. 3. Hypophosphatemia, hypomagnesemia. Will replete with K-Phos and magnesium sulfate. 4. Acute encephalopathy and dementia. The patient remains confused. Continue to monitor. 5. Dysphagia. The patient's family is going to determine whether to have percutaneous endoscopic gastrostomy placement. Monitor. 6. Anemia. Continue to monitor hemoglobin and hematocrit levels. Problems: DAJUAN CARDOZA MD December 06, 2016 08:47
[2016-12-06] MEDS: ATENOLOL 25 MG TAB PO SCH ×2 (09:00→21:00)
[2016-12-06] MEDS: AMLODIPINE 5 MG TAB PO SCH (09:00)
[2016-12-06] MEDS ORDERED: MAGNESIUM SULFATE 1 GM/D5W 100 ML IVPB ONE (10:00)
[2016-12-06] MEDS: D5W-0.45 NACL + KCL 30 MEQ 1,000 ML IV SCH (10:24)
[2016-12-06] MEDS: AZTREONAM 0.5 GM in SOD CHLORIDE 0.9% 50 ML IV SCH ×2 (10:24→20:49)
[2016-12-06] MEDS: ENOXAPARIN 30 MG/0.3 ML SYG SC SCH (10:26)
[2016-12-06] MEDS ORDERED: POTASSIUM PHOSPHATE 20 MEQ in SOD CHLORIDE 0.9% 250 ML IVPB ONE (10:30)
[2016-12-06 14:53] LABS: FLUORESCENT TREPONEMAL AB NON-REACTIVE (NON-REACTIVE)
--- NOTE | 2016-12-06 16:58 | PN ---
Date/Time of Note Date/Time of Note DATE: 12/06/16 TIME: 16:57 Assessment/Plan VTE Prophylaxis VTE Prophylaxis Intervention: SCD's Lines/Catheters IV [facility]ter Type (from [facility]): Peripheral IV Urinary Cath still in place: No Assessment/Plan Chief Complaint/Hosp Course Assessment 1. Hypoxemic respiratory failure 2. Dementia with dysphagia 3. Possible aspiration pneumonia 4. 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 Diabetes mellitus 6. Burnt out Alexis's thyroiditis Plan 1. Family wished to place PEG tube placement as patient has improved 2. Continue pulmonary toilet 3. Continue IV fluids 4. Continue insulin as needed 5. DVT and GI prophylaxis 6. GI consult for PEG tube placement Disposition Continue telemetry care Patient will need placement in [facility] facility which I discussed with her son Renaldo Patient's son Renaldo requesting PEG tube placement Problems: Subjective 24 Hr Interval Summary Free Text/Dictation Patient stable no new events Exam/Review of Systems Vital Signs Vitals Vital Signs Date Time Temp Pulse Resp B/P Pulse Ox O2 Delivery O2 Flow Rate FiO2 12/06/16 16:44 114 12/06/16 15:34 98.4 16 134/72 100 12/06/16 10:38 Nasal Cannula 3.0 Intake and Output 12/05/16 12/05/16 12/06/16 15:00 23:00 07:00 Intake Total 310 ml 564.54 ml 280 ml Balance 310 ml 564.54 ml 280 ml Exam GENERAL: Frail elderly lady in no acute distress VITAL SIGNS: per chart NECK: Supple. No JVD or lymphadenopathy. CARDIAC EXAM: S1, S2. No added sounds or murmurs. CHEST: Diminished air entry bilaterally with rales ABDOMEN: Soft, nontender. No guarding or rebound. EXTREMITIES: No cyanosis, clubbing or edema. NEUROLOGIC: Generalized weakness. Results Result Diagram: 12/05/16 0535 12/06/16 0635 Results 24 hrs Laboratory Tests Test 12/06/16 06:35 Sodium Level 140 Potassium Level 3.0 L Chloride Level 107 Carbon Dioxide Level 26 Anion Gap 10 Blood Urea Nitrogen 6 L Creatinine 0.47 Glucose Level 92 Calcium Level 6.2 L Phosphorus Level 1.9 L Magnesium Level 1.5 L Medications Medications Current Medications Lorazepam (Ativan) 0.5 mg Q6H PRN IV ANXIETY Last administered on 11/25/16 02: 05; Admin Dose 0.5 MG; Start 11/24/16 at 21:30; Status Future Hold Nitroglycerin (Nitroglycerin (Sl Tab) 0.4 Mg) 1 tab Q5M PRN SL CHEST PAIN; Start 11/24/16 at 21:30 Acetaminophen (Tylenol Tab) 650 mg Q6H PRN PO PAIN LEVEL 1-3 OR FEVER; Start at 21:30 Acetaminophen/ Hydrocodone Bitart ([place] (5/325)) 1 tab Q6H PRN PO PAIN LEVEL 4 -6; Start 11/24/16 at 21:30 Famotidine (Pepcid) 10 mg Q48H PO Last administered on 11/29/16 08:15; Admin Dose 10 MG; Start 11/25/16 at 09:00 Amlodipine Besylate (Norvasc) 5 mg DAILY PO Last administered on 11/29/16 08: 15; Admin Dose 5 MG; Start 11/25/16 at 09:00 Atenolol (Tenormin) 25 mg BID PO Last administered on 11/29/16 08:15; Admin Dose 25 MG; Start 11/25/16 at 09:00 Hydralazine HCl 5 mg 5 mg Q6H PRN IV SBP>160; Start 11/25/16 at 10:30 Aztreonam/Sodium Chloride (Azactam/NS) 50 ml @ 100 mls/hr Q12 IV Last administered on 12/06/16 10:24; Admin Dose 100 MLS/HR; Start 11/29/16 at 21:30 Enoxaparin Sodium 30 mg 30 mg DAILY SC Last administered on 12/06/16 10:26; Admin Dose 30 MG; Start 12/04/16 at 15:00 Potassium Chloride/Dextrose/ Sod Cl (D5-1/2ns + KCl 30 Meq) 1,000 ml @ 40 mls/ hr Q24H IV Last administered on 12/06/16 10:24; Admin Dose 40 MLS/HR; Start 12/05/16 at 10:30 DAMIAN CASPER MD, [facility] December 06, 2016 16:58
[2016-12-06 19:52] LABS: INR 1.2; PROTIME 15.3 Sec (12.2-14.2); PT RATIO 1.2; THROMBIN TIME 17.3 SEC (13.8-19.1)
--- NOTE | 2016-12-06 21:15 | CONS ---
DATE OF ADMISSION: 11/24/2016 DATE OF CONSULTATION: Dear Dr. Santos and Dr. Wyman: Thank you for asking me to see Mrs. Redman in GI consultation. HISTORY OF PRESENT ILLNESS: The patient was admitted to the hospital because of respiratory failure and GI consultation is requested at this time for consideration of placement of a percutaneous endo scopic gastrostomy tube for long-term nutritional support. The patient is alert, but she is totally confused, unable to give me any additional history except that she has history of dysphagia. She s ustained aspiration pneumonia. I am unable to visit the family members, but the chart indicates the re is evidence of a possible metastatic cancer of the colon with liver metastasis. She also has his tory of diabetes and Alexis disease, supposed to be ____ disease. MEDICATIONS: Currently includes: 1. Potassium phosphate. 2. Magnesium sulfate. 3. Lovenox. 4. Ampicillin. 5. Pepcid. 6. Norvasc. 7. Tenormin. 8. Synthroid. 9. Ativan. 10. Nitroglycerin. 11. [place]. PAST MEDICAL HISTORY: Please refer to the old chart and the current chart. REVIEW OF SYSTEM: As mentioned above, respiratory failure, renal failure, weight loss, malnutrition , anemia, borderline electrolyte imbalance. PHYSICAL EXAMINATION: GENERAL: The patient is an 86-year-old female who at this time is alert, thin built. She is cachectic. VITAL SIGNS: She is afebrile. CARDIOVASCULAR: Normal heart sounds. RESPIRATORY: Normal breath sounds. ABDOMEN: Showed unremarkable findings. LABORATORY WORKUP: Potassium is 3.0 apparently this morning, which I am getting repleted at this ti me. Phosphorus 1.9, magnesium 1.5. The WBC 6200, hemoglobin 8.5, platelet count 224,000. Coagulat ion: Prothrombin time 13.6, INR of 1.04. The chest x-ray shows evidence of a right lower lobe pneu monia. Please refer to the report for more information. Note cholecystectomy noted as well. CLINICAL IMPRESSION: The patient presenting with respiratory failure. She is unable to eat food. She has been losing weight. She is cachectic. She has electrolyte imbalance, renal failure, respir atory failure, some remote history of colon cancer with metastasis has been reported, but I do not h ave any evidence in the chart at this time. PLAN: I agree that patient would benefit from a percutaneous endoscopic gastrostomy tube placement for long-term nutritional support. Once again, Dr. Santos, thank you for this consultation. Dictated By: FLAQUITO LIEBERMAN/AYAKA Conf#: [id number] DID#: [id number] CC: FLAQUITO VALDES MD; JULIANNA WYMAN MD; DAMIAN SANTOS MD;*End*
[2016-12-07] VITALS (19 sets, daily range): BP systolic 116–154; BP diastolic 58–94; PULSE 78–104; RESP 16–25
[2016-12-07] MEDS: LEVOTHYROXINE 25 MCG TAB PO SCH (06:16)
[2016-12-07 07:00] LABS: ADD SCAN DIFF NO
[2016-12-07 07:04] LABS: BASOPHILS % 0.2 % (0.0-2.0); EOSINOPHILS # 0.1 10^3/ul (0.0-0.5); EOSINOPHILS % 2.7 % (0.0-7.0); HEMATOCRIT 25.6 % (37.0-47.0); HEMOGLOBIN 8.2 g/dl (12.0-16.0); LYMPHOCYTES # 0.8 10^3/ul (0.8-2.9); LYMPHOCYTES % 18.3 % (15.0-51.0); MEAN CORPUSCULAR HEMOGLOBIN 29.3 pg (29.0-33.0); MEAN CORPUSCULAR VOLUME 91.4 fl (82.0-101.0); MONOCYTE # 0.2 10^3/ul (0.3-0.9); NEUTROPHIL # 3.2 10^3/ul (1.6-7.5); NEUTROPHILS % 72.4 % (39.0-77.0); PLATELET COUNT 141 10^3/UL (140-415); RED CELL DISTRIBUTION WIDTH 15.8 % (11.5-14.5); WHITE BLOOD COUNT 4.4 10^3/ul (4.8-10.8)
[2016-12-07 07:46] LABS: CREATININE 0.52 mg/dl (0.44-1.00); MAGNESIUM 1.6 mg/dl (1.7-2.5); POTASSIUM 3.5 mmol/L (3.5-5.1)
[2016-12-07 07:49] LABS: CALCIUM 5.9 mg/dl (8.4-10.2)
[2016-12-07] MEDS: AMLODIPINE 5 MG TAB PO SCH (08:45)
[2016-12-07] MEDS: ENOXAPARIN 30 MG/0.3 ML SYG SC SCH (08:45)
[2016-12-07] MEDS: ATENOLOL 25 MG TAB PO SCH ×2 (08:45→20:42)
[2016-12-07] MEDS: FAMOTIDINE 20 MG TAB PO SCH (08:45)
[2016-12-07] MEDS: AZTREONAM 0.5 GM in SOD CHLORIDE 0.9% 50 ML IV SCH ×2 (08:54→20:40)
[2016-12-07] MEDS ORDERED: MAGNESIUM SULFATE 2 GM/50 ML 50 ML IVPB ONE (10:00)
[2016-12-07] MEDS: D5W-0.45 NACL + KCL 30 MEQ 1,000 ML IV SCH ×2 (10:44→23:00)
[2016-12-07] MEDS ORDERED: POTASSIUM PHOSPHATE 20 MEQ in SOD CHLORIDE 0.9% 250 ML IVPB ONE (11:00)
[2016-12-07] MEDS ORDERED: CALCIUM GLUCONATE 10% 2 GM in SOD CHLORIDE 0.9% 100 ML IVPB ONE (11:00)
--- NOTE | 2016-12-07 11:21 | PN ---
DATE: 12/07/2016 SUBJECTIVE: The patient remains lethargic, pending PEG tube placement today. No other events noted . OBJECTIVE: VITAL SIGNS: Blood pressure 121/62, respirations 16, pulse 87, temperature 97.9. HEENT: Head is normocephalic. NECK: Supple. HEART: Regular rate. LUNGS: Show diminished breath sounds at the base. ABDOMEN: Soft, nontender to palpation. No rebound or guarding. EXTREMITIES: Negative for clubbing, cyanosis, no edema. DERMATOLOGIC: No rashes. MUSCULOSKELETAL: No joint effusions. NEUROLOGIC: No change in exam. MEDICATIONS: The patient's medications have been reviewed. LABORATORY DATA: Shows white count of 4.4, hemoglobin 9.2, hematocrit 25.6, platelet count 141. So dium 136, potassium 5, chloride 108, BUN 6, creatinine 0.52. ASSESSMENT AND PLAN: 1. Nonoliguric acute kidney injury with unknown baseline creatinine. Etiology secondary to hemodyn amics. Renal function is improved. Continue current treatment plan. 2. Hypophosphatemia, hypokalemia and hypomagnesemia. Etiology secondary to total body deficits as the patient has been n.p.o. We will replete electrolytes. Monitor. 3. Hypocalcemia. Will give calcium gluconate 2 grams IV x1. 4. Dysphagia. The patient is pending PEG tube placement. 5. Acute encephalopathy with dementia. Continue to monitor. 6. Anemia. Continue to monitor hemoglobin and hematocrit levels. Dictated By: MEGGAN KUMAR/AYAKA Conf#: [id number] DID#: [id number]
--- NOTE | 2016-12-07 11:32 | PN ---
DATE: 12/07/2016 SUBJECTIVE: Connie Redman remains stable this morning, tearful, somewhat confused but no evidence of respiratory distress. PHYSICAL EXAMINATION: VITAL SIGNS: Temperature 98, pulse 81, blood pressure 121/62, O2 saturation 96% on 3 liters. NECK: Supple, no JVD or lymphadenopathy. CARDIAC: S1, S2, no added sounds or murmurs. CHEST: Diminished air entry bilaterally. ABDOMEN: Soft, nontender. No guarding or rebound. EXTREMITIES: No cyanosis, clubbing, edema. NEUROLOGIC: Generalized weakness. LABORATORY DATA: White count 4.4, hemoglobin 8.2, platelets 141, ____ 5.9, BUN 6, creatinine 0.52, INR was 1.2. IMPRESSION AND PLAN: 1. Chronic encephalopathy. 2. Dysphagia with significant aspiration risk. 3. History of possible metastatic colon carcinoma. 4. Diabetes mellitus. PLAN: 1. The patient will require PEG tube placement to be performed by Dr. Green today. 2. Continue IV fluids. 3. Continue conservative management. 4. Continue aspiration precautions. DISPOSITION: The patient will need placement likely to [facility] facility following discharge . Dictated By: DAMIAN AC/AYAKA Conf#: [id number] DID#: [id number]
[2016-12-07] MEDS ORDERED: LIDOCAINE 2% (SDV) 5 ML INJ ONE (17:36)
[2016-12-07] MEDS ORDERED: PROPOFOL 20 ML ONE (17:36)
[2016-12-07] MEDS ORDERED: FENTAnyl 50 MCG/ML VIAL ONE (17:36)
[2016-12-07] MEDS ORDERED: CEFAZOLIN 1 GM/50 ML (PMX) 50 ML IVPB ONE (17:41)
[2016-12-07] MEDS ORDERED: MIDAZOLAM 1 MG/ML 2 ML INJ IV PRN (18:00)
[2016-12-07] MEDS ORDERED: OXYCODONE/ACETAMINOPHEN (5/325) TAB PO PRN ×2 (18:00)
[2016-12-07] MEDS ORDERED: LABETALOL HCL 20MG INJ IV PRN (18:00)
[2016-12-07] MEDS ORDERED: ONDANSETRON 4 MG INJ IV PRN (18:00)
[2016-12-07] MEDS ORDERED: EPHEDrine SULFATE 50 MG/5 ML SYG IV PRN (18:00)
[2016-12-07] MEDS ORDERED: HYDROmorphONE (0.2 MG/ML) 10ML SYG IV PRN ×3 (18:00)
[2016-12-07] MEDS ORDERED: hydrALAzine 20 MG INJ IV PRN (18:00)
[2016-12-08] VITALS (11 sets, daily range): BP systolic 132–159; BP diastolic 66–77; PULSE 86–114; RESP 16–19
[2016-12-08] MEDS: HYDROmorphONE 1 MG/ML SYG IV PRN ×2 (00:36→09:09)
--- NOTE | 2016-12-08 04:15 | GILP ---
DATE OF PROCEDURE: NAME OF PROCEDURE: Esophagogastroduodenoscopy, percutaneous endoscopic gastrostomy tube placement. PREOPERATIVE DIAGNOSIS: Patient presenting with history of difficulty in swallowing. She has lost a great deal of weight. Procedure at this time performed to create access for long-term nutritional support. POSTOPERATIVE DIAGNOSIS: Patient presenting with history of difficulty in swallowing. She has lost a great deal of weight. Procedure at this time performed to create access for long-term nutritiona l support. DESCRIPTION OF PROCEDURE: After the informed written consent was obtained, the patient was asked to lie in the supine position. Intravenous anesthesia was given by Leanne FRAUSTO. When the patient became somnolent, the Olympus video upper endoscope was introduced into the oropharynx, then into th e esophagus. Esophagus appeared normal. Stomach appeared normal. No ulcer. No neoplasm noted. D uodenum appeared normal. Scope at this time was withdrawn to the level of the gastric cavity. Ante rior abdominal wall was prepared with Betadine and alcohol; 2 mL of 2% Xylocaine was infiltrated at the endoscopic illuminating site. At this site, 3 mm incision was made by using the scalpel. Throu gh the incision, a trocar was inserted into the stomach. The stylet was removed. Guidewire was ins erted into the stomach. The guidewire was grabbed with a polypectomy snare, and then the guidewire was brought out through the mouth along with the endoscope. To this end of the guidewire, #20 Micro vasive G-tube was tied in a loop fashion and then brought out through the abdominal wall incision. The retention bumper was placed over the G-tube close to the skin. Tapered end of the gastrostomy t ube was cut. The adapter was placed, and the procedure was terminated. PLAN: Recommend starting G-tube feeding in a.m. Dictated By: FLAQUITO LIEBERMAN/AYAKA Conf#: [id number] DID#: [id number] CC: DAMIAN CASPER MD;*EndCC*
[2016-12-08 06:23] LABS: ADD SCAN DIFF NO
[2016-12-08 06:29] LABS: BASOPHILS % 0.2 % (0.0-2.0); EOSINOPHILS % 0.7 % (0.0-7.0); HEMATOCRIT 26.1 % (37.0-47.0); HEMOGLOBIN 8.2 g/dl (12.0-16.0); LYMPHOCYTES # 0.7 10^3/ul (0.8-2.9); LYMPHOCYTES % 11.2 % (15.0-51.0); MEAN CORPUSCULAR HGB CONC 31.4 g/dl (32.0-37.0); MEAN CORPUSCULAR VOLUME 92.2 fl (82.0-101.0); MONOCYTE # 0.2 10^3/ul (0.3-0.9); MONOCYTES % 2.8 % (0.0-11.0); NEUTROPHIL # 5.1 10^3/ul (1.6-7.5); NEUTROPHILS % 84.3 % (39.0-77.0); PLATELET COUNT 215 10^3/UL (140-415); RED BLOOD COUNT 2.83 10^6/ul (4.20-5.40); RED CELL DISTRIBUTION WIDTH 16.1 % (11.5-14.5)
[2016-12-08 07:12] LABS: CALCIUM 6.7 mg/dl (8.4-10.2); CREATININE 0.57 mg/dl (0.44-1.00); MAGNESIUM 1.9 mg/dl (1.7-2.5); PHOSPHORUS 2.5 mg/dl (2.5-4.9); POTASSIUM 3.7 mmol/L (3.5-5.1)
--- NOTE | 2016-12-08 08:38 | PN ---
DATE: 12/08/2016 SUBJECTIVE: The patient is stable. No acute events noted. The patient is status post G-tube place ment. No other events noted. OBJECTIVE: VITAL SIGNS: Blood pressure 139/75, respirations 18, pulse 70, temperature 97.9. HEENT: Head is normocephalic. NECK: Supple. HEART: Regular rate. LUNGS: Showed diminished breath sounds at the base. ABDOMEN: Soft, nontender to palpation. Positive PEG. EXTREMITIES: Negative for clubbing or cyanosis. No edema. DERMATOLOGIC: No rashes. MUSCULOSKELETAL: Have no joint effusion. NEUROLOGIC: No change in exam. MEDICATIONS: The patient's medications have been reviewed. LABORATORY DATA: Shows sodium 137, potassium 3.7, BUN 7, creatinine 0.57, calcium 6.7. Magnesium a nd phosphorus levels within normal limits. White count 6.0, hemoglobin 9.2, hematocrit 26.1, platel et count 215. ASSESSMENT AND PLAN: 1. Nonoliguric acute kidney injury, with an unknown baseline creatinine. Etiology is secondary to hemodynamics. Renal function has improved. Continue the current treatment plan, supportive care, r enally dose all meds. 2. Electrolyte abnormality, hyperphosphatemia, hypokalemia and hypomagnesemia. The patient is stat us post repletion yesterday. Will continue to monitor and replete as needed. 3. Hypocalcemia. Status post calcium gluconate. Potassium levels are improving. Continue to jose r tor. 4. Dysphagia. The patient is status post PEG. Anticipate tube feeding today. Will discontinue IV fluids once the tube feeding starts. 5. Acute encephalopathy with dementia. Continue to monitor. 6. Anemia. Continue to monitor hemoglobin and hematocrit levels. Dictated By: MEGGAN KUMAR/AYAKA Conf#: [id number] DID#: [id number]
[2016-12-08] MEDS: LEVOTHYROXINE 25 MCG TAB PO SCH (09:10)
[2016-12-08] MEDS: AMLODIPINE 5 MG TAB PO SCH (09:11)
[2016-12-08] MEDS: ATENOLOL 25 MG TAB PO SCH (09:11)
[2016-12-08] MEDS: ENOXAPARIN 30 MG/0.3 ML SYG SC SCH (09:18)
[2016-12-08] MEDS: AZTREONAM 0.5 GM in SOD CHLORIDE 0.9% 50 ML IV SCH (09:23)
[2016-12-08] MEDS ORDERED: COLLAGENASE 30 GM TUBE TOP SCH (12:00)
--- NOTE | 2016-12-08 13:27 | CONS ---
DATE OF ADMISSION: 11/24/2016 DATE OF CONSULTATION: 12/08/2016 SOCIAL HISTORY: Patient has no complaints. The patient is nonverbal. OBJECTIVE GENERAL: The patient is thin and cachectic. She is alert, she is not in distress. VITAL SIGNS: Blood pressure 146/66, pulse is 86, temperature 98.6. CLINICAL IMPRESSION: Status post gastrostomy placement. Patient tolerating the G-tube well. Abdomen shows soft abdomen. PLAN: Continue G-tube feeding. Dictated By: FLAQUITO LIEBERMAN/AYAKA Conf#: [id number] DID#: [id number]
--- NOTE | 2016-12-08 13:37 | PDOCDIS ---
Discharge Instructions DIAGNOSIS Discharge Diagnosis: dysphagia s/p g tube CONDITION Patient Condition: Stable HOME CARE INSTRUCTIONS: Diet Instructions: Special Diet: fibersource HN ACTIVITY: Bathing Restrictions: Sponge Bath FOLLOW UP/APPOINTMENTS Appointments primary care DAMIAN CASPER MD, [facility] December 08, 2016 13:37
--- NOTE | 2016-12-08 14:24 | EN ---
Date/Time of Note Date/Time of Note DATE: 12/08/16 TIME: 14:23 Event Note Medicine Medicine Event Note Discharge home with g tube in place Will need tube feeding for 99 months (indefinate). DAM[facility] CASPER MD, [facility] December 08, 2016 14:24
--- NOTE | 2016-12-08 16:03 | DS ---
DATE OF ADMISSION: 11/24/2016 DATE OF DISCHARGE: 12/08/2016 DISCHARGE DIAGNOSES: 1. Dehydration. 2. Hyperkalemia. 3. Dysphagia now with PEG tube placement. PROCEDURE: PEG tube placement on 12/07/2016. SUMMARY: This is an 86-year-old lady who admitted to [facility] with decreased p. o. intake, cachexia and ____kalemia with elevated BUN and creatinine consistent with dehydration. HOSPITAL COURSE: Patient was treated for abnormal electrolytes, received hydration and her conditio n continued to fluctuate throughout admission. She had failed a swallowing evaluation. The patient was initially considered for hospice care, but her condition stabilized and per family's request, G-tube was requested. G-tube was placed on 12/07/2016 without complication and family requested the patient to be discharged home with continued tube feeding and care at home. Code status on dischar ge was DO NOT RESUSCITATE. DISCHARGE MEDICATIONS: 1. Collagenase to be applied topically. 2. Atenolol 25 mg p.o. b.i.d. 3. Norvasc 5 mg p.o. daily. 4. Levothyroxine 25 mcg daily. 4. Bactrim-DS 1 tablet b.i.d. x7 days. CONDITION ON DISCHARGE: Stable. ACTIVITY: Bed rest. DIET: Tube feeding. Dictated By: DAMIAN AC/AYAKA Conf#: [id number] DID#: [id number]
[2016-12-09] MEDS ORDERED: DIATR MEGLU/DIATRIZOATE SODIUM 120 ML BTL ONE (10:13)
== END 2016-12-08 18:57 | disposition home or self-care (01) | DRG 682 ==
LOC: E/R 15:54 → MS4 21:04 → TEL 12-05 23:58
PROVIDERS: ADMIT Family Medicine; ATTEND Family Medicine
PROC: 0DH63UZ Insertion of Feeding Device into Stomach, Percutaneous Approach (ICD-10-PCS; principal; 2016-12-07 16:30)
DX: N17.9 Acute kidney failure, unspecified (principal); G93.49 Other encephalopathy; J69.0 Pneumonitis due to inhalation of food and vomit; E43 Unspecified severe protein-calorie malnutrition; R64 Cachexia; R13.10 Dysphagia, unspecified; E87.2 Acidosis; C78.7 Secondary malignant neoplasm of liver and intrahepatic bile duct; E87.1 Hypo-osmolality and hyponatremia; Z68.1 Body mass index [BMI] 19.9 or less, adult; N39.0 Urinary tract infection, site not specified; C18.9 Malignant neoplasm of colon, unspecified; E87.5 Hyperkalemia; E86.0 Dehydration; D64.9 Anemia, unspecified; Z66 Do not resuscitate; Z74.01 Bed confinement status; I10 Essential (primary) hypertension; E03.9 Hypothyroidism, unspecified; F03.90 Unspecified dementia, unspecified severity, without behavioral disturbance, psychotic disturbance, mood disturbance, and anxiety; E83.39 Other disorders of phosphorus metabolism; E11.9 Type 2 diabetes mellitus without complications; E06.3 Autoimmune thyroiditis
CPT/HCPCS: 36415; 36600; 70450; 71010; 76775; 80048; 80053; 80061; 81001; 81003; 82043; 82533; 82607; 82652; 82728; 82803; 83036; 83540; 83735; 84100; 84132; 84134; 84155; 84300; 84439; 84443; 84484; 85025; 85049; 85610; 85670; 85730; 86140; 86480; 86592; 87070; 87081; 87086; 87285; 92526; 92610; 93005; 96374; 96375; J0360; J0610; J0690; J1170; J1650; J1940; J2060; J2916; J3010; J3475; J3480; J7030; J7042; J7050

== ENCOUNTER 2016-12-08 20:54 | Inpatient (IN) | payer MEDICARE, OTHER ==
[~2016-12-08] VITALS: Ht 154.9 cm; Wt 36.2 kg
[~2016-12-08 20:54] MED LIST: AMLO5TAB4 PO; ATEN-51 PO; LEVO25TA53 PO; SULF1TAB31 PO
[2016-12-08 21:05] VITALS: Ht 154.9 cm; Wt 36.2 kg
[2016-12-08] MEDS ORDERED: ONDANSETRON 4 MG INJ IV PRN (22:00)
[2016-12-08] MEDS ORDERED: ACETAMINOPHEN 325 MG TAB PO PRN (22:00)
[2016-12-08] MEDS ORDERED: DEXTROSE 5%-0.45% NACL 1,000 ML IV ONE (22:12)
--- NOTE | 2016-12-08 22:12 | ERA ---
ER Documentation Chief Complaint Date/Time DATE: 12/08/16 TIME: 22:03 Chief Complaint Sent back from [facility] due to low O2 sat on room air, see nurse's notes HPI 86-year-old female with a history of dementia and renal failure discharged to board and care today sent back from her board and care for hypoxia on room air. She was supposed to have home oxygen set up by home health, however it was not set up. The facility does not accept patients that have an oxygen less than 92%. Patient is demented and cannot give me any history. All she does is moan when I talk to her. This is reportedly her baseline. Patient is DNR. ROS Unable to obtain review of systems given patient's dementia Medications Home Meds Reported Medications Sulfamethoxazole/Trimethoprim* (Bactrim Ds* Tablet) 1 Each Tablet, 160 MG PO BID , TAB 800/160MG 11/24/16 Amlodipine Besylate* (Norvasc*) 5 Mg Tablet, 5 MG PO DAILY, TAB 11/24/16 Atenolol* (Atenolol*) 25 Mg Tablet, 25 MG PO BID, #60 TAB 11/24/16 Levothyroxine Sodium* (Levothyroxine Sodium*) 25 Mcg Tablet, 25 MCG PO BEFORE BREAKFAST, #30 TAB 11/24/16 Allergies Allergies: Coded Allergies: Penicillins (Verified Allergy, Mild, RASHN DIFF BREATHING, 12/08/16) PMhx/Soc Unable to obtain History of Surgery: No Anesthesia Reaction: No Hx Neurological Disorder: No Hx Respiratory Disorders: No Hx Cardiac Disorders: No Hx Psychiatric Problems: No Hx Miscellaneous Medical Probl: Yes (Renal failure, hypertension, anemia, dementia) Hx Alcohol Use: No Hx Substance Use: No Hx Tobacco Use: No FmHx Family History: other (Unable to obtain) Physical Exam Vitals Vital Signs Date Time Temp Pulse Resp B/P Pulse Ox O2 Delivery O2 Flow Rate FiO2 12/08/16 21:05 97.9 117 20 120/60 94 Physical Exam Const: Cachectic, grinding teeth, moaning, nonverbal, no diaphoresis Head: Atraumatic Eyes: Normal Conjunctiva ENT: Dry oral mucosa, grinding teeth constantly Neck: No JVD, no swelling Resp: Diminished breath sounds bilaterally with no obvious wheezing, rales, rhonchi. Poor respiratory effort Cardio: Regular rate and rhythm, no murmurs Abd: Soft, non tender, non distended. Normal bowel sounds Skin: Warm, dry Ext: No cyanosis, or edema Neur: Eyes closed, nonverbal, moaning, agitated, not following commands Results 24 hrs Current Medications Medications (Trade) Dose Ordered Sig/Emily Route PRN Reason Start Time Stop Time Status Last Admin Dose Admin Ondansetron HCl (Zofran Inj) 4 mg BRIDGE ORDER PRN IV NAUSEA AND/OR VOMITING 12/08/16 22:00 12/09/16 21:59 Acetaminophen (Tylenol Tab) 650 mg ER BRIDGE PRN PO MILD PAIN/FEVER 12/08/16 22:00 12/09/16 21:59 Procedures/MDM Patient was sent for hypoxia that has already been diagnosed. The only reason she is here is because the facility cannot provide oxygen for her. there are no new problems per EMS. On supplemental oxygen, her O2 sat is 94%. On room air it is 88%. I Do not think the patient needs any further workup. She will be admitted for supplemental oxygenation until her outpatient supplemental oxygen can be arranged. She was noted to be somewhat tachycardic, so maintenance fluids were started. Departure Diagnosis: Primary Impression: Chronic respiratory failure with hypoxia Condition: SOLEDAD Whitten MD December 08, 2016 22:11
[2016-12-08 22:32] VITALS: PULSE 118; TEMP 100.2
[2016-12-08] MEDS ORDERED: SODIUM CHLORIDE 0.9% 1L BAG IV* STA (22:39)
[2016-12-08] MEDS ORDERED: LEVOFLOXACIN 750MG/D5W (PMX) 150 ML IVPB STA (22:39)
[2016-12-08 23:29] LABS: ADD SCAN DIFF NO
[2016-12-08 23:30] LABS: HEMATOCRIT 27.4 % (37.0-47.0); HEMOGLOBIN 9.1 g/dl (12.0-16.0); MEAN CORPUSCULAR HEMOGLOBIN 30.3 pg (29.0-33.0); MEAN CORPUSCULAR HGB CONC 33.2 g/dl (32.0-37.0); MEAN CORPUSCULAR VOLUME 91.3 fl (82.0-101.0); MEAN PLATELET VOLUME 11.2 fl (7.4-10.4); PLATELET COUNT 259 10^3/UL (140-415); RED CELL DISTRIBUTION WIDTH 15.9 % (11.5-14.5); WHITE BLOOD COUNT 7.9 10^3/ul (4.8-10.8)
--- NOTE | 2016-12-08 23:45 | RADRPT ---
PROCEDURE: XR Chest. CLINICAL INDICATION: Dyspnea and sepsis TECHNIQUE: AP Portable chest. COMPARISON: 11/29/2016 chest x-ray FINDINGS: The soft tissues and bones are remarkable for severe bilateral glenohumeral and acromioclavicular os teoarthropathy with thoracic spondylosis. Again noted is the right lower lobe pneumonia increased i nvolvement noted in the right upper lobe. Mild blunting of the right costophrenic angle is noted com patible to small right pleural effusion. The heart and mediastinum are normal. The patient is stat us post cholecystectomy changes. Interval onset of pneumoperitoneum is present. Recommend additiona l imaging of the abdomen and pelvis to exclude perforated viscus. IMPRESSION: 1. Interval onset of pneumoperitoneum and recommend abdominal imaging to evaluate for perforated vi scus. 2. Persistent right lower lobe pneumonia and interval extension to the right upper lobe and small r ight pleural effusion. 3. 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 A call report was made to Dr. Andrea at 12/08/2016 11:44:01 PM following the completion of the examin ation by the undersigned. RPTAT: HDC .Heidy Candelaria MD, MD Date Time Electronically viewed and signed by .Heidy Candelaria MD, on 12/08/2016 23:44 .C/
[2016-12-08 23:53] LABS: ADD UMIC YES; URINE BILIRUBIN (Dip) NEGATIVE (NEGATIVE); URINE BLOOD (Dip) 3+ (NEGATIVE); URINE COLOR LT. YELLOW (YELLOW); URINE GLUCOSE (Dip) NEGATIVE (NEGATIVE); URINE KETONES (Dip) TRACE (NEGATIVE); URINE LEUKOCYTE ESTERASE (Dip) 2+ (NEGATIVE); URINE NITRITE (Dip) NEGATIVE (NEGATIVE); URINE TOTAL PROTEIN (Dip) NEGATIVE (NEGATIVE); URINE UROBILINOGEN (Dip) 1.0 E.U./dL (0.1-1.0)
--- NOTE | 2016-12-08 23:58 | HP ---
Date/Time of Note Date/Time of Note DATE: 12/08/16 TIME: 23:57 Assessment/Plan VTE Prophylaxis VTE Prophylaxis Intervention: SCD's Assessment/Plan Chief Complaint/Hosp Course This is a 86-year-[facility]: #1 hypoxia: Patient was to be discharged with supplemental oxygen: However patient did not receive the oxygen at her facility. At the current time she is satting 94% on 2 L. We will continue supplemental oxygen. Will discuss with case management regarding regarding home oxygen. #2 hypertension: Continue amlodipine #3 anemia, stable continue to monitor #4 dementia, stable patient currently appears at baseline. #5 hypothyroidism continue Synthroid. DVT and GI prophylaxis, SCDs, H2 navneet Patient's CODE STATUS is DNR. Problems: HPI/ROS Admit Date/Time Admit Date/Time 12/08/2016 22:10 Hx of Present Illness HPI 86-year-old female with a history of dementia and renal failure discharged to board and care today sent back from her board and care for hypoxia on room air. She was supposed to have home oxygen set up by home health, however it was not set up. The facility does not accept patients that have an oxygen less than 92%. Patient is demented and cannot give me any history. All she does is moan when I talk to her. This is reportedly her baseline. Patient is DNR. Allergies: Penicillin Medications: See SAUL TREVIÑO Subjective hx not possible: pt non-verbal (Dementia) PMH/Family/Social Past Medical History Renal failure, hypertension, anemia, dementia Past Surgical History Past Surgical Hx: no surgical history Family History Significant Family History: no pertinent family hx Social History Smoking Status: Unknown if ever smoked Exam/Review of Systems Vital Signs Vitals Vital Signs Date Time Temp Pulse Resp B/P Pulse Ox O2 Delivery O2 Flow Rate FiO2 12/08/16 23:40 Nasal Cannula 3 12/08/16 22:32 100.2 118 18 12/08/16 21:50 125/55 94 Exam Exam Const: Cachectic, grinding teeth, moaning, nonverbal, no diaphoresis, patient has a history of dementia Head: Atraumatic Eyes: Normal Conjunctiva ENT: Dry oral mucosa, grinding teeth constantly Neck: No JVD, no swelling Resp: Diminished breath sounds bilaterally with no obvious wheezing, rales, rhonchi. Poor respiratory effort Cardio: Regular rate and rhythm, no murmurs Abd: Soft, non tender, non distended. Normal bowel sounds Skin: Warm, dry Ext: No cyanosis, or edema Neur: Eyes closed, nonverbal, moaning, agitated, not following commands, patient has a history of dementia Labs Result Diagram: 12/08/16 2320 Medications Medications Current Medications Dextrose/Sodium Chloride (D5-1/2ns) 1,000 ml @ 70 mls/hr [id number] ONCE IV ; Start 12/08/16 at 22:12; Stop 12/09/16 at 12:29 KG BEJARANO December 08, 2016 23:58
[2016-12-09 00:26] LABS: BACTERIA,URINE MANY; MUCUS,URINE MODERATE
[2016-12-09 00:38] LABS: ANISOCYTOSIS FEW; EOSINOPHILS # 0.1 10^3/ul (0.0-0.5); HYPOCHROMASIA 1+; LYMPHOCYTES # 1.5 10^3/ul (0.8-2.9); MONOCYTE # 0.2 10^3/ul (0.3-0.9); MYELOCYTES # 0.1; NEUTROPHIL # 6.1 10^3/ul (1.6-7.5); TOXIC GRANULATION 1+
[2016-12-09 00:39] LABS: ALBUMIN 2.8 g/dl (3.3-4.9); ALBUMIN/GLOBULIN RATIO 0.75; BILIRUBIN,INDIRECT 0.2 mg/dl (0-1.1); BILIRUBIN,TOTAL 0.2 mg/dl (0.2-1.3); CALCIUM 6.8 mg/dl (8.4-10.2); CREATININE 0.59 mg/dl (0.44-1.00); PLATELET ESTIMATE PLT APPEAR ADEQUATE; TOTAL PROTEIN 6.5 g/dl (6.1-8.1)
--- NOTE | 2016-12-09 00:40 | EN ---
Date/Time of Note Date/Time of Note DATE: 12/09/16 TIME: 00:39 ER Progress Note I was notified by the radiologist that this patient does have free air under the diaphragm. This patient did have a PEG tube placed last week according to this patient's previous physician who evaluated this patient. I did order a CT of the abdomen pelvis. Radiologist did call back and state that there is no obvious perforation. I will relay this message to the admitting physician at this time, and instruct for serial radiographs to evaluate for worsening free air. RADHA ROLDAN DO December 09, 2016 00:40
--- NOTE | 2016-12-09 00:44 | RADRPT ---
PROCEDURE: CT Abdomen and pelvis without contrast. CLINICAL INDICATION: Abdominal pain. TECHNIQUE: CT scan of the abdomen and pelvis was performed on a multi-detector high-resolution CT scanner. Contiguous axial images were obtained from the lung bases to the ischial tuberosities wit hout intravenous contrast. Coronal and sagittal reformatted images were also obtained. Images were reviewed on the PACS workstation. One or more of the following dose reduction techniques were used: - Automated exposure control. - Adjustment of the mA and/or kV according to patient size. - Use of iterative reconstruction technique. Exam CTD/vol = 4.80 mGy. Total exam DLP = 233.16 mGy-cm. COMPARISON: None. FINDINGS: Evaluation of the lung bases demonstrates a moderate right-sided pleural effusion with underlying at electasis/consolidation. There are scattered air space opacities within the right lung base. There is a small left-sided pleural effusion with underlying atelectasis. Abdomen: The liver is normal in size. There is no focal mass or dilatation of the biliary tree. Th e patient is status post cholecystectomy. The spleen, pancreas and bilateral adrenal glands are wit hin normal limits. Bilateral kidneys are normal in size with no contour deforming mass identified. There is no radiopaque renal or ureteral calculus identified. There is moderate right and mild lef t-sided hydronephrosis. There is no retroperitoneal adenopathy. The abdominal aorta is of normal c aliber with scattered atherosclerotic calcifications. There is subcutaneous air within the ventral abdominal wall. There is moderate to large free air wi thin the anterior abdomen. There is a gastrostomy tube in place. There is no bowel obstruction. A normal appendix is identified. There is no diverticulosis or diverticulitis. There is no ascites. Pelvis: The bladder is mildly distended with mild diffuse wall thickening. The uterus is absent. T here is no significant pelvic adenopathy or free fluid. Evaluation of the osseous structures demonstrates no suspicious lytic or blastic lesion. There are m oderate to severe compression deformities of the T12 through L5 vertebral bodies. There is prior ve rtebroplasty of T12 through L3. There is diffuse demineralization. IMPRESSION: Moderate to large pneumoperitoneum. Findings could be secondary to gastrostomy tube placement; cruz brad, follow-up is recommended to exclude other source of viscus perforation. Moderately distended bladder with moderate right and mild left-sided hydronephrosis. Bladder decomp ression is recommended. Mild diffuse bladder wall thickening could suggest cystitis. Clinically correlate. Moderate right-sided pleural effusion with underlying atelectasis/consolidation. Scattered air space opacities within the right lung base. Small left-sided pleural effusion with underlying atelectasis. Status post cholecystectomy. Vascular calcifications reflective of atherosclerosis. Gastrostomy tube in place. There is subcutaneous air within the ventral abdominal wall likely secon farideh to gastrostomy tube placement. Moderate to severe compression deformities of the T12 through L5 vertebral bodies likely related to osteoporosis, ages indeterminate. Status post vertebroplasty of T12 through L3. Osteopenia. A call report was made to Dr. Andrea at 12:40 a.m. .Alfonzo Thompson MD, Date Time Electronically viewed and signed by .Alfonzo Thompson MD, on 12/09/2016 00:43 .T/
[2016-12-09 00:50] LABS: TROPONIN-I 0.027 ng/ml (0.00-0.12)
[2016-12-09 01:45] VITALS: BP 125/58; RESP 20
[2016-12-09] MEDS ORDERED: NACL 0.9% 3 ML SYG IV SCH (04:00)
[2016-12-09] MEDS ORDERED: ONDANSETRON 4 MG INJ IV PRN (04:00)
[2016-12-09] MEDS ORDERED: PENDING SANTYL ORDER FOR WOUND CARE XX PRN (04:30)
[2016-12-09] MEDS: SOD CHLORIDE 0.9% 1,000 ML IV SCH (04:38)
[2016-12-09] MEDS ORDERED: COLLAGENASE 30 GM TUBE TOP PRN (05:30)
[2016-12-09 07:15] VITALS: BP 121/59; RESP 18
[2016-12-09] MEDS ORDERED: AZTREONAM 1 GM/NS (PMX) 50 ML IVPB SCH (09:00)
--- NOTE | 2016-12-09 10:21 | PN ---
Date/Time of Note Date/Time of Note DATE: 12/09/16 TIME: 10:16 Assessment/Plan Lines/Catheters IV [facility] (from [facility]): Peripheral IV Urinary Cath still in place: Yes Assessment/Plan Assessment/Plan This is a 86-year-old female being admitted to [facility] floor for: #1 hypoxia: Patient was to be discharged with supplemental oxygen: However patient did not receive the oxygen at her facility. At the current time she is satting 94% on 2 L. We will continue supplemental oxygen. Will discuss with case management regarding regarding home oxygen. #2 hypertension: Continue amlodipine #3 anemia, stable continue to monitor #4 dementia, stable patient currently appears at baseline. #5 hypothyroidism continue Synthroid. #6 Persistent multi-organism UTI 7. Hydronephrosis with bladder distention likely secondary to neurogenic bladder 8. Moderate to large pneumoperitoneum likely secondary to PEG placement 9. Moderate right-sided pleural effusion with probable underlying pneumonia likely causing #1 #10 hypocalcemia PLAN: * Will broaden antibiotic coverage to cover for pneumonia * Surgical consult has been obtained we will await recommendations regarding pneumoperitoneum, likely will only need observation * Will order a right-sided thoracentesis for cultures * Replace electrolytes * We will also obtain palliative care consult for possible hospice care * Continue all other supportive care and when patient improved, will discharge back to [facility] facility DVT and GI prophylaxis, SCDs, H2 navneet Patient's CODE STATUS is DNR. Exam/Review of Systems Vital Signs Vitals Vital Signs Date Time Temp Pulse Resp B/P Pulse Ox O2 Delivery O2 Flow Rate FiO2 12/09/16 07:15 99.3 102 18 121/59 97 12/09/16 02:00 Nasal Cannula 3.0 Intake and Output 12/08/16 12/08/16 12/09/16 15:00 23:00 07:00 Intake Total 120 ml Balance 120 ml Results Result Diagram: 12/08/16 2320 12/08/16 2320 Results 24 hrs Laboratory Tests Test 12/08/16 22:20 12/08/16 23:20 12/08/16 23:25 12/09/16 00:41 Bedside Glucose 107 White Blood Count 7.9 # Red Blood Count 3.00 L Hemoglobin 9.1 L Hematocrit 27.4 L Mean Corpuscular Volume 91.3 Mean Corpuscular Hemoglobin 30.3 Mean Corpuscular Hemoglobin Concent 33.2 Red Cell Distribution Width 15.9 H Platelet Count 259 # Mean Platelet Volume 11.2 H Neutrophils % 77.0 Lymphocytes % 19.0 Monocytes % 2.0 Eosinophils % 1.0 Myelocytes % 1.0 H Neutrophils # 6.1 Lymphocytes # 1.5 Monocytes # 0.2 L Eosinophils # 0.1 Myelocytes # 0.1 Differential Comment MANUAL DIFF Toxic Granulation 1+ Platelet Estimate PLT APPEAR ADEQUATE Large Platelets FEW Hypochromasia 1+ Anisocytosis FEW Sodium Level 133 L Potassium Level 4.0 Chloride Level 103 Carbon Dioxide Level 25 Anion Gap 9 Blood Urea Nitrogen 9 Creatinine 0.59 Glucose Level 117 Lactic Acid Level 1.2 0.9 Calcium Level 6.8 L Total Bilirubin 0.2 Direct Bilirubin 0.00 Indirect Bilirubin 0.2 Aspartate Amino Transf (AST/SGOT) 40 Alanine Aminotransferase (ALT/SGPT) 30 Alkaline Phosphatase 118 Troponin I 0.027 Total Protein 6.5 Albumin 2.8 L Globulin 3.70 H Albumin/Globulin Ratio 0.75 Urine Color LT. YELLOW Urine Clarity CLEAR Urine pH 6.0 Urine Specific [place] 1.025 Urine Ketones TRACE H Urine Nitrite NEGATIVE Urine Bilirubin NEGATIVE Urine Urobilinogen 1.0 E.U./dL Urine Leukocyte Esterase 2+ H Urine Microscopic RBC 10-25 Urine Microscopic WBC >50 Urine Bacteria MANY Urine Mucus MODERATE Urine Yeast MANY Urine Hemoglobin 3+ H Urine Glucose NEGATIVE Urine Total Protein NEGATIVE Test 12/09/16 05:10 Lactic Acid Level 0.9 Medications Medications Current Medications Dextrose/Sodium Chloride 1,000 ml @ 70 mls/hr [id number] ONCE IV ; Start 12/08/16 at 22:12; Stop 12/09/16 at 12:29 Sodium Chloride (NS) 1,000 ml @ 60 mls/hr [id number] IV Last administered on t 04:38; Admin Dose 60 MLS/HR; Start 12/09/16 at 03:46 Ondansetron HCl (Zofran Inj) 4 mg Q6H PRN IV NAUSEA AND/OR VOMITING; Start 12/09 at 04:00 Miscellaneous Information (Pending Santyl Order For Wound Care) This patient fish... PRN PRN XX WOUND CARE; Start 12/09/16 at 04:30 Collagenase 1 applic 1 applic DAILY TOP ; Start 12/09/16 at 09:00 Aztreonam (Azactam 1gm/NS (Pmx)) 50 ml @ 100 mls/hr Q12 IVPB ; Start 12/09/16 at 09:00 PEGGY JADE December 09, 2016 10:21
--- NOTE | 2016-12-09 10:24 | CONS ---
Date/Time of Note Date/Time of Note DATE: 12/09/16 TIME: 10:10 Assessment/Plan Assessment/Plan Chief Complaint/Hosp Course 86-year-old female with pneumoperitoneum status post PEG placement * This can be an expected finding after PEG placement. * The patient has multiple other problems including urinary tract infection, pneumonia and pleural effusions which may be contributing to her fever. Patient does not have leukocytosis or left shift. * CT scan images were reviewed it does appear that the PEG is in place and not through the colon. * I will obtain a Gastrografin KUB to evaluate for leak * Patient is DNR * I discussed the above with the patient's son, Renaldo, who is the spokesperson and decision maker. He reconfirmed the patient's DNR status. He stated that he does not want surgical intervention, if required. My discussion was witnessed by the nurse. The above was also discussed with the nurse at the bedside. Further recommendations will be made based on patient's clinical course Problems: Consultation Date/Type/Reason Admit Date/Time 12/08/2016 22:10 Date of Consultation: December 09, 2016 Type of Consultation: GENERAL SURGERY Reason for Consultation Pneumoperitoneum Hx of Present Illness The patient is an 86-year-old female with multiple medical problems who was recently discharged from [facility] to her halfway facility. She was supposed to be discharged on home oxygen however this was not done. The patient be presented back to the emergency room with hypoxia. She is status post PEG placement on December 08, 2016 for dysphagia and poor p.o. intake. On arrival to the emergency room she was found to have a low- grade fever of 100.2. Plain films of the chest showed pneumoperitoneum. CT scan which was done confirmed pneumoperitoneum. Surgical consultation was therefore called. Patient does also have urinary tract infection and bilateral infiltrates with pleural effusions. She is demented and unable to answer questions. Unable to obtain as patient is demented Past Surgical History Past Surgical Hx: no surgical history Social History Smoking Status: Unknown if ever smoked Exam/Review of Systems Vital Signs Vitals Vital Signs Date Time Temp Pulse Resp B/P Pulse Ox O2 Delivery O2 Flow Rate FiO2 12/09/16 07:15 99.3 102 18 121/59 97 12/09/16 02:00 Nasal Cannula 3.0 Intake and Output 12/08/16 12/08/16 12/09/16 15:00 23:00 07:00 Intake Total 120 ml Balance 120 ml Exam GENERAL: Demented, in bed moaning. SKIN: No jaundice. CARDIOVASCULAR: S1S2, regular rate and rhythm. RESPIRATORY: Decreased breath sounds bilaterally ABDOMEN: Soft, bowel sounds present, nondistended, she does grimace on palpation near the PEG tube insertion site. However, there is no involuntary guarding. Exam is difficult given the patient's mental status and contractures. EXTREMITIES: Bilateral contractures of upper and lower extremities Results Result Diagram: 12/08/16 2320 12/08/16 2320 Results 24 hrs Laboratory Tests Test 12/08/16 22:20 12/08/16 23:20 12/08/16 23:25 12/09/16 00:41 Bedside Glucose 107 White Blood Count 7.9 # Red Blood Count 3.00 L Hemoglobin 9.1 L Hematocrit 27.4 L Mean Corpuscular Volume 91.3 Mean Corpuscular Hemoglobin 30.3 Mean Corpuscular Hemoglobin Concent 33.2 Red Cell Distribution Width 15.9 H Platelet Count 259 # Mean Platelet Volume 11.2 H Neutrophils % 77.0 Lymphocytes % 19.0 Monocytes % 2.0 Eosinophils % 1.0 Myelocytes % 1.0 H Neutrophils # 6.1 Lymphocytes # 1.5 Monocytes # 0.2 L Eosinophils # 0.1 Myelocytes # 0.1 Differential Comment MANUAL DIFF Toxic Granulation 1+ Platelet Estimate PLT APPEAR ADEQUATE Large Platelets FEW Hypochromasia 1+ Anisocytosis FEW Sodium Level 133 L Potassium Level 4.0 Chloride Level 103 Carbon Dioxide Level 25 Anion Gap 9 Blood Urea Nitrogen 9 Creatinine 0.59 Glucose Level 117 Lactic Acid Level 1.2 0.9 Calcium Level 6.8 L Total Bilirubin 0.2 Direct Bilirubin 0.00 Indirect Bilirubin 0.2 Aspartate Amino Transf (AST/SGOT) 40 Alanine Aminotransferase (ALT/SGPT) 30 Alkaline Phosphatase 118 Troponin I 0.027 Total Protein 6.5 Albumin 2.8 L Globulin 3.70 H Albumin/Globulin Ratio 0.75 Urine Color LT. YELLOW Urine Clarity CLEAR Urine pH 6.0 Urine Specific [place] 1.025 Urine Ketones TRACE H Urine Nitrite NEGATIVE Urine Bilirubin NEGATIVE Urine Urobilinogen 1.0 E.U./dL Urine Leukocyte Esterase 2+ H Urine Microscopic RBC 10-25 Urine Microscopic WBC >50 Urine Bacteria MANY Urine Mucus MODERATE Urine Yeast MANY Urine Hemoglobin 3+ H Urine Glucose NEGATIVE Urine Total Protein NEGATIVE Test 12/09/16 05:10 Lactic Acid Level 0.9 Medications Medications Current Medications Dextrose/Sodium Chloride 1,000 ml @ 70 mls/hr [id number] ONCE IV ; Start 12/08/16 at 22:12; Stop 12/09/16 at 12:29 Sodium Chloride (NS) 1,000 ml @ 60 mls/hr [id number] IV Last administered on t 04:38; Admin Dose 60 MLS/HR; Start 12/09/16 at 03:46 Ondansetron HCl (Zofran Inj) 4 mg Q6H PRN IV NAUSEA AND/OR VOMITING; Start 12/09 at 04:00 [facility]isc[facility] This patient fish... PRN PRN XX WOUND CARE; Start 12/09/16 at 04:30 Collagenase 1 applic 1 applic DAILY TOP ; Start 12/09/16 at 09:00 Aztreonam (Azactam 1gm/NS (Pmx)) 50 ml @ 100 mls/hr Q12 IVPB ; Start 12/09/16 at 09:00 Procedures Procedures PROCEDURE: CT Abdomen and pelvis without contrast. CLINICAL INDICATION: Abdominal pain. TECHNIQUE: CT scan of the abdomen and pelvis was performed on a multi- detector high-resolution CT scanner. Contiguous axial images were obtained from the lung bases to the ischial tuberosities without intravenous contrast. Coronal and sagittal reformatted images were also obtained. Images were reviewed on the PACS workstation. One or more of the following dose reduction techniques were used: - Automated exposure control. - Adjustment of the mA and/or kV according to patient size. - Use of iterative reconstruction technique. Exam CTD/vol = 4.80 mGy. Total exam DLP = 233.16 mGy-cm. COMPARISON: None. FINDINGS: Evaluation of the lung bases demonstrates a moderate right-sided pleural effusion with underlying atelectasis/consolidation. There are scattered air space opacities within the right lung base. There is a small left-sided pleural effusion with underlying atelectasis. Abdomen: The liver is normal in size. There is no focal mass or dilatation of the biliary tree. The patient is status post cholecystectomy. The spleen, pancreas and bilateral adrenal glands are within normal limits. Bilateral kidneys are normal in size with no contour deforming mass identified. There is no radiopaque renal or ureteral calculus identified. There is moderate right and mild left-sided hydronephrosis. There is no retroperitoneal adenopathy. The abdominal aorta is of normal caliber with scattered atherosclerotic calcifications. There is subcutaneous air within the ventral abdominal wall. There is moderate to large free air within the anterior abdomen. There is a gastrostomy tube in place. There is no bowel obstruction. A normal appendix is identified. There is no diverticulosis or diverticulitis. There is no ascites. Pelvis: The bladder is mildly distended with mild diffuse wall thickening. The uterus is absent. There is no significant pelvic adenopathy or free fluid. Evaluation of the osseous structures demonstrates no suspicious lytic or blastic lesion. There are moderate to severe compression deformities of the T12 through L5 vertebral bodies. There is prior vertebroplasty of T12 through L3. There is diffuse demineralization. IMPRESSION: Moderate to large pneumoperitoneum. Findings could be secondary to gastrostomy tube placement; however, follow-up is recommended to exclude other source of viscus perforation. Moderately distended bladder with moderate right and mild left-sided hydronephrosis. Bladder decompression is recommended. Mild diffuse bladder wall thickening could suggest cystitis. Clinically correlate. Moderate right-sided pleural effusion with underlying atelectasis/consolidation. Scattered air space opacities within the right lung base. Small left-sided pleural effusion with underlying atelectasis. Status post cholecystectomy. Vascular calcifications reflective of atherosclerosis. Gastrostomy tube in place. There is subcutaneous air within the ventral abdominal wall likely secondary to gastrostomy tube placement. Moderate to severe compression deformities of the T12 through L5 vertebral bodies likely related to osteoporosis, ages indeterminate. Status post vertebroplasty of T12 through L3. Osteopenia. A call report was made to Dr. Roldan at 12:40 a.m. .Alfonzo Thompson MD, Date Time Electronically viewed and signed by .Alfonzo Thompson MD, MD on 12/09/2016 00:43 .T/ CC: RADHA ROLDAN MICHAEL A. MD December 09, 2016 10:21
[2016-12-09] MEDS ORDERED: VANCOMYCIN IV PER PHARMACY XX SCH (10:30)
[2016-12-09] MEDS: FLUCONAZOLE 200 MG/NS (PMX) 100 ML IVPB SCH (10:55)
--- NOTE | 2016-12-09 10:58 | RADRPT ---
PROCEDURE: XR Abdomen, gastrostomy tube check. CLINICAL INDICATION: Gastrostomy tube placement TECHNIQUE: An AP view of the abdomen was obtained following administration of 30 cc gastrograffin c ontrast through the gastrostomy tube. COMPARISON: X-ray abdomen and CT abdomen and pelvis performed earlier on the same date FINDINGS: There is a nonobstructive bowel gas pattern. There is filling of the distal stomach and duodenum. No extravasation of contrast is noted. There is intraperitoneal free air with increased lucency bel ow the right diaphragm. Findings are better appreciated on prior CT. Calcifications are seen withi n the right lower quadrant. There are multiple pelvic surgical clips. The osseous structures demon strate senescent changes. The visualized portions of the lung bases demonstrate right mid lung inte rstitial opacities. IMPRESSION: 1. Gastrostomy tube appears in good position, within the gastric lumen. No extravasation of contras t is noted. 2. Intraperitoneal free air, better appreciated on prior CT. RPTAT: HH .Trista Goodrich MD, MD Date Time Electronically viewed and signed by .Trista Goodrich MD, on 12/09/2016 10:58 .G/
--- NOTE | 2016-12-09 11:01 | RADRPT ---
PROCEDURE: XR Abdomen. CLINICAL INDICATION: Pneumoperitoneum TECHNIQUE: A single AP view of the abdomen was obtained. COMPARISON: CT abdomen pelvis performed earlier on the same date. FINDINGS: There is a nonobstructive bowel gas pattern. A gastrostomy tube is in place. Calcifications are seen within the right lower quadrant. There is increased lucency over the liver. The osseous structure s demonstrate senescent changes post procedural changes from prior vertebroplasty. IMPRESSION: 1. Pneumoperitoneum, better appreciated on prior CT. 2. Gastrostomy tube in place. RPTAT: HH .Trista Goodrich MD, MD Date Time Electronically viewed and signed by .Trista Goodrich MD, on 12/09/2016 11:01 .G/
--- NOTE | 2016-12-09 11:04 | RADRPT ---
PROCEDURE: XR Chest. CLINICAL INDICATION: Pneumoperitoneum TECHNIQUE: A single AP view of the chest was obtained. COMPARISON: Chest X-ray dated 12/08/2016 and 11/24/2016 FINDINGS: There are right lung interstitial opacities. No pleural effusion or pneumothorax is seen. There is a nodular density in the right upper lobe. The cardiomediastinal silhouette is mildly enlarged. C alcifications are seen within the aortic arch. The osseous structures demonstrate senescent changes . Free air is again noted beneath the right diaphragm. IMPRESSION: 1. Right lung interstitial opacities may reflect asymmetric interstitial edema or pneumonia. Overa ll, no significant interval change. 2. Mild cardiomegaly and aortic atherosclerosis. 3. Persistent pneumoperitoneum. RPTAT: HH .Trista Goodrich MD, Date Time Electronically viewed and signed by .Trista Goodrich MD, MD on 12/09/2016 11:03 .G/
[2016-12-09] MEDS ORDERED: LEVOFLOXACIN 750MG/D5W (PMX) 150 ML IVPB SCH (11:30)
[2016-12-09] MEDS ORDERED: CALCIUM GLUCONATE 10% 2 GM in SOD CHLORIDE 0.9% 100 ML IVPB ONE (11:30)
[2016-12-09] MEDS ORDERED: VANCOMYCIN 750 MG in SOD CHLORIDE 0.9% 150 ML IVPB SCH (12:30)
[2016-12-09] MEDS: COLLAGENASE 30 GM TUBE TOP SCH (18:09)
[2016-12-09 19:32] VITALS: BP 119/77; RESP 19
[2016-12-10] MEDS: SOD CHLORIDE 0.9% 1,000 ML IV SCH ×3 (02:22→23:14)
[2016-12-10] MEDS: LEVOFLOXACIN 250MG/D5W (PMX) 50 ML IVPB SCH ×2 (03:10→22:18)
[2016-12-10 07:07] LABS: CREATININE 0.53 mg/dl (0.44-1.00)
[2016-12-10 07:44] VITALS: BP 137/61; RESP 18
[2016-12-10] MEDS: FLUCONAZOLE 200 MG/NS (PMX) 100 ML IVPB SCH (11:52)
[2016-12-10] MEDS: COLLAGENASE 30 GM TUBE TOP SCH (11:54)
[2016-12-10] MEDS: VANCOMYCIN 500MG/NS (PMX) 100 ML IVPB SCH (13:37)
--- NOTE | 2016-12-10 15:11 | PN ---
Date/Time of Note Date/Time of Note DATE: 12/10/16 TIME: 15:09 Assessment/Plan Lines/Catheters IV Catheter Type (from Nrs): Saline Lock Patricio in Place (from Nrs): Yes Assessment/Plan Assessment/Plan 86-year-old female with pneumoperitoneum status post PEG placement * This can be an expected finding after PEG placement. * The patient has multiple other problems including urinary tract infection, pneumonia and pleural effusions which may be contributing to her fever. Patient does not have leukocytosis or left shift. * CT scan images were reviewed it does appear that the PEG is in place and not through the colon. * Gastrografin KUB shows PEG tube in good position and without leak * Patient is DNR * I discussed the above with the patient's son, Renaldo, who is the spokesperson and decision maker. He reconfirmed the patient's DNR status. He stated that he does not want surgical intervention, if required. My discussion was witnessed by the nurse. * Repeat KUB in a.m. If pneumoperitoneum decreasing then can start G-tube feeds. The above was also discussed with the nurse at the bedside. Further recommendations will be made based on patient's clinical course Subjective 24 Hr Interval Summary No acute events overnight. Remains afebrile. Bowel movement reported. Exam/Review of Systems Vital Signs Vitals Vital Signs Date Time Temp Pulse Resp B/P Pulse Ox O2 Delivery O2 Flow Rate FiO2 12/10/16 07:44 98.6 88 18 137/61 99 12/09/16 21:07 2.0 12/09/16 20:00 Nasal Cannula Intake and Output 12/09/16 12/09/16 12/10/16 15:00 23:00 07:00 Intake Total 100 ml 670 ml 650 ml Output Total 1100 ml 520 ml Balance 100 ml -430 ml 130 ml Exam Free Text/Dictation GENERAL: Demented, in bed resting comfortably. ABDOMEN: Soft, bowel sounds present, nondistended, she does grimace on palpation near the PEG tube insertion site. However, there is no involuntary guarding. Exam is difficult given the patient's mental status and contractures , however is unchanged. Results Result Diagram: 12/08/16 2320 12/10/16 0550 LUIS ALBERTO BEAR MD December 10, 2016 15:11
--- NOTE | 2016-12-10 15:57 | PN ---
Date/Time of Note Date/Time of Note DATE: 12/10/16 TIME: 15:32 Assessment/Plan VTE Prophylaxis VTE Prophylaxis Intervention: SCD's Lines/Catheters IV [facility]ter [facility]from [facility] Saline Lock Urinary Cath still in place: Yes Reason Cath still needed: urinary retention Assessment/Plan Assessment/Plan This is a 86-year-old female being admitted to [facility] floor for: 1. Hypoxic resp insufficiency 2/2 #2 2. Moderate right-sided pleural effusion with probable underlying pneumonia likely causing #1 3. Sepsis 2/2 UTI and pneumonia (Fever/ leucopenia / tachycardia): improving 4. Moderate to large pneumoperitoneum likely secondary to PEG placement 5. Chronic anemia 2/2 malnutrition and chronic disease, brendan 6. Severe dementia, stable patient currently appears at baseline. 7. Hypothyroidism continue Synthroid. 8. Persistent multi-organism UTI 9. Hydronephrosis with bladder distention likely secondary to neurogenic bladder 10. Hypocalcemia PLAN: * Continue abx for pneumonia and UTI * Spoke with surgery re: pneumoperitoneum: contrast study shows good NGT placement and no contrast leakage. * Plan to commence NGT feeds when pneumoperitoneum improves. * No surgical intervention required at this time and family does not want surgery. * Thoracentesis will not necessarily improve quality of life but may prevent early decompensation, will order * Leave mcallister in for now and start oxybutynin. Repeat USS in a few days to assess hydronephrosis. * Replace electrolytes * We will also obtain palliative care consult for possible hospice care * Continue all other supportive care and when patient improved, will discharge back to [facility] facility DVT and GI prophylaxis, SCDs, H2 navneet Patient's CODE STATUS is DNR. Subjective 24 Hr Interval Summary Subjective hx not possible: pt non-verbal Exam/Review of Systems Vital Signs Vitals Vital Signs Date Time Temp Pulse Resp B/P Pulse Ox O2 Delivery O2 Flow Rate FiO2 12/10/16 07:44 98.6 88 18 137/61 99 12/09/16 21:07 2.0 12/09/16 20:00 Nasal Cannula Intake and Output 12/09/16 12/09/16 12/10/16 14:59 22:59 06:59 Intake Total 100 ml 670 ml 650 ml Output Total 1100 ml 520 ml Balance 100 ml -430 ml 130 ml Exam Constitutional: non-verbal, moans, incoherent speech, can nod head sometimes Eyes open spontaneously, No oriented, No distress Psych: other (unable to assess) Head: normocephalic, atraumatic Eyes: PERRL, No icteric ENMT: No mucosa pink and moist (dry) Neck: non-tender Respiratory: diminished breath sounds, No labored breathing Cardiovascular: regular rate and rhythm, No murmurs/extra sounds Gastrointestinal: soft, non-tender, bowel sounds, other (PEG tube noted with no cellulitis or discharge) Genitourinary - Female: nl external genitalia Extremities: msc atrophy, no edema Neurological: other (altered, eyes opening spontaneously ), No nl mental status, No nl speech, No nl strength Skin: isolated but diffuse vesicular rash on thighs, few spots on trunk and upper extremities. spares face. Results Result Diagram: 12/08/16 2320 12/10/16 0550 Results 24 hrs Laboratory Tests Test 12/10/16 05:50 Blood Urea Nitrogen 7 Creatinine 0.53 Medications Medications Current Medications Sodium Chloride (NS) 1,000 ml @ 60 mls/hr [id number] IV Last administered on 02:22; Admin Dose 60 MLS/HR; Start 12/09/16 at 03:46 Ondansetron HCl (Zofran Inj) 4 mg Q6H PRN IV NAUSEA AND/OR VOMITING; Start 12/09 at 04:00 [facility]isc[facility] This patient fish... PRN PRN XX WOUND CARE; Start 12/09/16 at 04:30 Collagenase 1 applic 1 applic DAILY TOP Last administered on 12/10/16 11:54; Admin Dose 1 APPLIC; Start 12/09/16 at 09:00 Fluconazole 100 ml @ 100 mls/hr Q24H IVPB Last administered on 12/10/16 11:52 ; Admin Dose 100 MLS/HR; Start 12/09/16 at 10:30 Levofloxacin/ Dextrose 50 ml @ 50 mls/hr Q24H IVPB Last administered on 03:10; Admin Dose 50 MLS/HR; Start 12/09/16 at 23:00 Vancomycin HCl (Vancocin) 100 ml @ 100 mls/hr Q24H IVPB Last administered on 13:37; Admin Dose 100 MLS/HR; Start 12/10/16 at 13:00 Procedures Procedures PROCEDURE: XR Abdomen. CLINICAL INDICATION: Pneumoperitoneum TECHNIQUE: A single AP view of the abdomen was obtained. COMPARISON: CT abdomen pelvis performed earlier on the same date. FINDINGS: There is a nonobstructive bowel gas pattern. A gastrostomy tube is in place. Calcifications are seen within the right lower quadrant. There is increased lucency over the liver. The osseous structures demonstrate senescent changes post procedural changes from prior vertebroplasty. IMPRESSION: 1. Pneumoperitoneum, better appreciated on prior CT. 2. Gastrostomy tube in place. RPTAT: HH .Trista Goodrich MD, MD Date Time Electronically viewed and signed by .Trista Goodrich MD, MD on 12/09/2016 11 :01 .G/ CC: KG BEJARANO BOLATITO M. December 10, 2016 15:46
[2016-12-10 20:45] VITALS: BP 134/97; RESP 16
[2016-12-11 05:27] LABS: ADD SCAN DIFF NO
[2016-12-11 06:02] LABS: CALCIUM 6.5 mg/dl (8.4-10.2); CREATININE 0.52 mg/dl (0.44-1.00)
[2016-12-11 06:03] LABS: BASOPHILS % 0.1 % (0.0-2.0); EOSINOPHILS # 0.1 10^3/ul (0.0-0.5); EOSINOPHILS % 1.2 % (0.0-7.0); HEMATOCRIT 24.7 % (37.0-47.0); HEMOGLOBIN 7.7 g/dl (12.0-16.0); LYMPHOCYTES # 1.5 10^3/ul (0.8-2.9); LYMPHOCYTES % 19.4 % (15.0-51.0); MEAN CORPUSCULAR HEMOGLOBIN 29.2 pg (29.0-33.0); MEAN CORPUSCULAR HGB CONC 31.2 g/dl (32.0-37.0); MEAN CORPUSCULAR VOLUME 93.6 fl (82.0-101.0); MEAN PLATELET VOLUME 10.5 fl (7.4-10.4); MONOCYTE # 0.3 10^3/ul (0.3-0.9); MONOCYTES % 3.7 % (0.0-11.0); NEUTROPHIL # 5.6 10^3/ul (1.6-7.5); NEUTROPHILS % 74.8 % (39.0-77.0); PLATELET COUNT 302 10^3/UL (140-415); RED BLOOD COUNT 2.64 10^6/ul (4.20-5.40); RED CELL DISTRIBUTION WIDTH 16.9 % (11.5-14.5); WHITE BLOOD COUNT 7.5 10^3/ul (4.8-10.8)
[2016-12-11 07:01] LABS: POTASSIUM 2.9 mmol/L (3.5-5.1)
[2016-12-11] MEDS: DEXTROSE 5%-0.45% NACL 1,000 ML IV SCH ×2 (07:17→23:48)
[2016-12-11] MEDS ORDERED: DEXTROSE 50% 50 ML SYRINGE IV ONE (07:30)
[2016-12-11 07:43] VITALS: BP 135/62; RESP 18
[2016-12-11 07:52] LABS: INR 1.04; PROTIME 13.6 Sec (12.2-14.2); PT RATIO 1.1
[2016-12-11 08:09] LABS: PARTIAL THROMBOPLASTIN TIME 20.3 Sec (25.0-35.0)
[2016-12-11] MEDS: POTASSIUM CHLORIDE 250 ML IVPB SCH ×2 (09:34→14:10)
[2016-12-11] MEDS ORDERED: MAGNESIUM SULFATE 4 GM/100 ML 100 ML IVPB ONE (10:30)
[2016-12-11] MEDS ORDERED: COLLAGENASE 30 GM TUBE TOP PRN (11:00)
[2016-12-11] MEDS: FLUCONAZOLE 200 MG/NS (PMX) 100 ML IVPB SCH (12:08)
[2016-12-11] MEDS: VANCOMYCIN 500MG/NS (PMX) 100 ML IVPB SCH (13:17)
[2016-12-11] MEDS: COLLAGENASE 30 GM TUBE TOP SCH (14:27)
--- NOTE | 2016-12-11 14:35 | PN ---
Date/Time of Note Date/Time of Note DATE: 12/11/16 TIME: 14:34 Assessment/Plan VTE Prophylaxis VTE Prophylaxis Intervention: SCD's Lines/Catheters IV Catheter Type (from Nrs): Peripheral IV Assessment/Plan Chief Complaint/Hosp Course 1. Hypoxic resp insufficiency 2/2 #2 2. Moderate right-sided pleural effusion with probable underlying pneumonia likely causing #1 3. Sepsis 2/2 UTI and pneumonia (Fever/ leucopenia / tachycardia): improving 4. Moderate to large pneumoperitoneum likely secondary to PEG placement 5. Chronic anemia 2/2 malnutrition and chronic disease, brendan 6. Severe dementia, stable patient currently appears at baseline. 7. Hypothyroidism continue Synthroid. 8. Persistent multi-organism UTI 9. Hydronephrosis with bladder distention likely secondary to neurogenic bladder 10. Hypocalcemia PLAN: * Continue abx for pneumonia and UTI * Spoke with surgery re: pneumoperitoneum: contrast study shows good NGT placement and no contrast leakage. * Plan to commence NGT feeds when pneumoperitoneum improves. * No surgical intervention required at this time and family does not want surgery. * Thoracentesis will not necessarily improve quality of life but may prevent early decompensation, will order * Leave mcallister in for now and start oxybutynin. Repeat USS in a few days to assess hydronephrosis. * Replace electrolytes * We will also obtain palliative care consult for possible hospice care * Continue all other supportive care and when patient improved, will discharge back to senior care facility DVT and GI prophylaxis, SCDs, H2 navneet Patient's CODE STATUS is DNR, prognosis discussed with patient's son plan is for hospice eval Problems: Subjective 24 Hr Interval Summary Constitutional: disoriented Exam/Review of Systems Vital Signs Vitals Vital Signs Date Time Temp Pulse Resp B/P Pulse Ox O2 Delivery O2 Flow Rate FiO2 12/11/16 07:51 2.0 12/11/16 07:43 97.6 76 18 135/62 100 12/10/16 19:09 Nasal Cannula Intake and Output 12/10/16 12/10/16 12/11/16 15:00 23:00 07:00 Intake Total 800 ml 1250 ml Output Total 400 ml 500 ml Balance 400 ml 750 ml Exam Psych: confusion Respiratory: clear to auscultation Cardiovascular: regular rate and rhythm Gastrointestinal: soft, No distended Musculoskeletal: nl extremities to inspection Results Result Diagram: 12/11/16 0519 12/11/16 0519 Results 24 hrs Laboratory Tests Test 12/11/16 05:19 12/11/16 07:03 12/11/16 07:20 12/11/16 07:25 White Blood Count 7.5 Red Blood Count 2.64 L Hemoglobin 7.7 L Hematocrit 24.7 L Mean Corpuscular Volume 93.6 Mean Corpuscular Hemoglobin 29.2 Mean Corpuscular Hemoglobin Concent 31.2 L Red Cell Distribution Width 16.9 H Platelet Count 302 Mean Platelet Volume 10.5 H Neutrophils % 74.8 Lymphocytes % 19.4 Monocytes % 3.7 Eosinophils % 1.2 Basophils % 0.1 Nucleated Red Blood Cells % 0.0 Neutrophils # 5.6 Lymphocytes # 1.5 Monocytes # 0.3 Eosinophils # 0.1 Basophils # 0.0 Nucleated Red Blood Cells # 0.0 Sodium Level 140 Potassium Level 2.9 *L Chloride Level 106 Carbon Dioxide Level 23 Anion Gap 14 Blood Urea Nitrogen 8 Creatinine 0.52 Glucose Level 42 *L Calcium Level 6.5 L Magnesium Level 1.2 L Bedside Glucose 46 *L 149 Prothrombin Time 13.6 Prothrombin Time Ratio 1.1 INR International Normalized Ratio 1.04 Activated Partial Thromboplast Time 20.3 L Test 12/11/16 07:39 Bedside Glucose 123 Medications Medications Current Medications Ondansetron HCl 4 mg 4 mg Q6H PRN IV NAUSEA AND/OR VOMITING; Start 12/09/16 at 04:00 Fluconazole 100 ml @ 100 mls/hr Q24H IVPB Last administered on 12/11/16 12:08 ; Admin Dose 100 MLS/HR; Start 12/09/16 at 10:30 Levofloxacin/ Dextrose 50 ml @ 50 mls/hr Q24H IVPB Last administered on 22:18; Admin Dose 50 MLS/HR; Start 12/09/16 at 23:00 Vancomycin HCl 100 ml @ 100 mls/hr Q24H IVPB Last administered on 12/11/16 13: 17; Admin Dose 100 MLS/HR; Start 12/10/16 at 13:00 Dextrose/Sodium Chloride 1,000 ml @ 60 mls/hr [id number] IV Last administered on 12/11/16 07:17; Admin Dose 60 MLS/HR; Start 12/11/16 at 07:30 Potassium Chloride (KCl 40 MEQ/250 ML NS) 250 ml @ 62.5 mls/hr Q4H IVPB Last administered on 12/11/16 14:10; Admin Dose 62.5 MLS/HR; Start 12/11/16 at 08:30; Stop 12/11/16 at 16:29 Collagenase (Santyl) 1 applic DAILY TOP Last administered on 12/11/16 14:27; Admin Dose 1 APPLIC; Start 12/11/16 at 11:30 Collagenase (Santyl) 1 applic PRN PRN TOP WOUND CARE; Start 12/11/16 at 11:00 Miscellaneous Information (*Rx Drug Level Order Reminder*) VANCOMYCIN TROUGH 12/12 AT 1200 ONCE ONCE XX ; Start 12/12/16 at 12:00; Stop 12/12/16 at 12:01 EMMA VILLA December 11, 2016 14:35
--- NOTE | 2016-12-11 14:54 | PN ---
Date/Time of Note Date/Time of Note DATE: 12/11/16 TIME: 14:52 Assessment/Plan Lines/Catheters IV Catheter Type (from [facility]): Peripheral IV Assessment/Plan Assessment/Plan 86-year-old female with pneumoperitoneum status post PEG placement * This can be an expected finding after PEG placement. * The patient has multiple other problems including urinary tract infection, pneumonia and pleural effusions which may be contributing to her fever. Patient does not have leukocytosis or left shift. * CT scan images were reviewed it does appear that the PEG is in place and not through the colon. * Gastrografin KUB shows PEG tube in good position and without leak * Patient is DNR * I discussed the above with the patient's son, Renaldo, who is the spokesperson and decision maker. He reconfirmed the patient's DNR status. He stated that he does not want surgical intervention, if required. My discussion was witnessed by the nurse. * Follow-up KUB today. If pneumoperitoneum improved then can start G-tube feeds. The above was discussed with the primary care team and patient's son at the bedside. Further recommendations will be made based on patient's clinical course Subjective 24 Hr Interval Summary No acute events. Exam/Review of Systems Vital Signs Vitals Vital Signs Date Time Temp Pulse Resp B/P Pulse Ox O2 Delivery O2 Flow Rate FiO2 12/11/16 07:51 2.0 12/11/16 07:43 97.6 76 18 135/62 100 12/10/16 19:09 Nasal Cannula Intake and Output 12/10/16 12/10/16 12/11/16 15:00 23:00 07:00 Intake Total 800 ml 1250 ml Output Total 400 ml 500 ml Balance 400 ml 750 ml Exam Free Text/Dictation GENERAL: Demented, in bed resting comfortably. ABDOMEN: Soft, bowel sounds present, nondistended, nontender Results Result Diagram: 12/11/16 0519 12/11/16 0519 LUIS ALBERTO BEAR MD December 11, 2016 14:54
--- NOTE | 2016-12-11 17:56 | RADRPT ---
PROCEDURE: XR Abdomen. CLINICAL INDICATION: Abdomen pain. TECHNIQUE: AP supine abdomen x-ray. COMPARISON: 12/09/2016. FINDINGS: Intraperitoneal free air is once again noted. There is contrast in the colon from prior gastrostomy tube injection. The gastrostomy tube tip is in the stomach. There is no evidence of obstruction. Multiple surgical clips are present in the right upper quadrant, mid abdomen, and pelvis. There is a Patricio catheter in the bladder. There are no abnormal calcifications overlying the urinary tracts. There are degenerative changes of the spine. There has been previous vertebroplasty at L1, L2, L3, and L4. IMPRESSION: 1. Intraperitoneal free air. 2. Gastrostomy tube. 3. Contrast in the colon from prior study. 4. Prior surgery with surgical clips noted. 5. Degenerative changes of the spine and prior vertebroplasty. RPTAT: QQ .Nasim Thomas MD, Date Time Electronically viewed and signed by .Nasim Thomas MD, on 12/11/2016 17:56 .R/
[2016-12-11 19:23] VITALS: BP 128/67; RESP 16
[2016-12-11] MEDS: LEVOFLOXACIN 250MG/D5W (PMX) 50 ML IVPB SCH (22:33)
[2016-12-12] MEDS: DEXTROSE 5%-0.45% NACL 1,000 ML IV SCH ×2 (03:44→23:08)
[2016-12-12 06:12] LABS: ADD SCAN DIFF NO
[2016-12-12 06:21] LABS: BASOPHILS % 0.1 % (0.0-2.0); EOSINOPHILS # 0.1 10^3/ul (0.0-0.5); EOSINOPHILS % 1.3 % (0.0-7.0); HEMOGLOBIN 8.5 g/dl (12.0-16.0); LYMPHOCYTES # 1.6 10^3/ul (0.8-2.9); LYMPHOCYTES % 18.5 % (15.0-51.0); MEAN CORPUSCULAR HEMOGLOBIN 29.8 pg (29.0-33.0); MEAN CORPUSCULAR HGB CONC 32.7 g/dl (32.0-37.0); MEAN CORPUSCULAR VOLUME 91.2 fl (82.0-101.0); MEAN PLATELET VOLUME 10.2 fl (7.4-10.4); MONOCYTE # 0.4 10^3/ul (0.3-0.9); MONOCYTES % 4.6 % (0.0-11.0); NEUTROPHIL # 6.5 10^3/ul (1.6-7.5); NEUTROPHILS % 74.8 % (39.0-77.0); PLATELET COUNT 350 10^3/UL (140-415); RED BLOOD COUNT 2.85 10^6/ul (4.20-5.40); RED CELL DISTRIBUTION WIDTH 16.8 % (11.5-14.5); WHITE BLOOD COUNT 8.7 10^3/ul (4.8-10.8)
[2016-12-12 07:01] LABS: POTASSIUM 3.4 mmol/L (3.5-5.1)
[2016-12-12 07:04] LABS: CREATININE 0.47 mg/dl (0.44-1.00)
[2016-12-12 07:05] LABS: CALCIUM 6.5 mg/dl (8.4-10.2)
[2016-12-12 07:09] LABS: MAGNESIUM 1.9 mg/dl (1.7-2.5); PHOSPHORUS 1.2 mg/dl (2.5-4.9)
[2016-12-12 07:55] VITALS: BP 147/69; RESP 18
[2016-12-12] MEDS: COLLAGENASE 30 GM TUBE TOP SCH (08:57)
--- NOTE | 2016-12-12 09:39 | PN ---
Date/Time of Note Date/Time of Note DATE: 12/12/16 TIME: 09:38 Assessment/Plan Lines/Catheters IV Catheter Type (from [facility]): Saline Lock Patricio in Place (from [facility]): Yes Assessment/Plan Assessment/Plan 86-year-old female with pneumoperitoneum status post PEG placement * This can be an expected finding after PEG placement. * The patient has multiple other problems including urinary tract infection, pneumonia and pleural effusions which may be contributing to her fever. Patient does not have leukocytosis or left shift. * CT scan images were reviewed it does appear that the PEG is in place and not through the colon. * Gastrografin KUB shows PEG tube in good position and without leak * Patient is DNR * I discussed the above with the patient's son, Renaldo, who is the spokesperson and decision maker. He reconfirmed the patient's DNR status. He stated that he does not want surgical intervention, if required. My discussion was witnessed by the nurse. * KUB yesterday still shows some pneumoperitoneum, but contrast naturally and colon. Patient having bowel movements. * Okay to restart G-tube feeds slowly with advancement to goal as tolerated. The above was discussed with the primary care team and patient's son at the bedside. Further recommendations will be made based on patient's clinical course Subjective 24 Hr Interval Summary No acute events. Resting comfortably in bed. Afebrile. Exam/Review of Systems Vital Signs Vitals Vital Signs Date Time Temp Pulse Resp B/P Pulse Ox O2 Delivery O2 Flow Rate FiO2 12/12/16 08:25 Nasal Cannula 2.0 12/12/16 07:55 98.2 110 18 147/69 98 Intake and Output 12/11/16 12/11/16 12/12/16 15:00 23:00 07:00 Intake Total 450 ml 350 ml 1110 ml Output Total 650 ml 1360 ml Balance 450 ml -300 ml -250 ml Exam Free Text/Dictation 86-year-old female with pneumoperitoneum status post PEG placement * This can be an expected finding after PEG placement. * The patient has multiple other problems including urinary tract infection, pneumonia and pleural effusions which may be contributing to her fever. Patient does not have leukocytosis or left shift. * CT scan images were reviewed it does appear that the PEG is in place and not through the colon. * Gastrografin KUB shows PEG tube in good position and without leak * Patient is DNR * I discussed the above with the patient's son, Renaldo, who is the spokesperson and decision maker. He reconfirmed the patient's DNR status. He stated that he does not want surgical intervention, if required. My discussion was witnessed by the nurse. * Follow-up KUB today. If pneumoperitoneum improved then can start G-tube feeds. The above was discussed with the primary care team and patient's son at the bedside. Further recommendations will be made based on patient's clinical course Subjective Subjective 24 Hr Interval Summary No acute events. GENERAL: Demented, in bed resting comfortably. ABDOMEN: Soft, bowel sounds present, nondistended, nontender Results Result Diagram: 12/12/16 0555 12/12/16 0555 LUIS ALBERTO BEAR MD December 12, 2016 09:39
[2016-12-12] MEDS ORDERED: LIDOCAINE 1% (MPF) 5 ML VIAL ONE (10:24)
[2016-12-12] MEDS: FLUCONAZOLE 200 MG/NS (PMX) 100 ML IVPB SCH (11:06)
--- NOTE | 2016-12-12 11:36 | CONS ---
DATE OF ADMISSION: 12/10/2016 DATE OF CONSULTATION: 12/12/2016 PALLIATIVE CARE CONSULTATION HISTORY OF PRESENT ILLNESS: Ms. Redman is an 86-year-old female who was admitted to [facility] with increasing respiratory distress. This patient is a non-historian. There are no f amily members at the bedside, and the entire information I am obtaining at this point, is per kenyon leonel's medical records. Apparently has history of renal failure, lives in a board and care facility wi th required rehospitalization here, as patient became hypoxic at home. During her current hospital stay, she has been worked up extensively and was found to have a right-sided pleural effusion contri buting to her shortness of breath and possible underlying pneumonia. A large pneumoperitoneum has be en seen by surgery, no surgical intervention is anticipated at this time. There is a planned thorace ntesis. scheduled to control patient's underlying respiratory symptoms at this time. 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 She is extremely malnourished and also diagnosed consideration on this hospitalization is sepsis syndrome. MEDICATIONS: Please refer to reconciliation sheets. ALLERGIES: PENICILLIN. MAJOR MEDICAL PROBLEMS: Entirely her history of present illness however, comorbid medical problems i nclude history of hypertension, anemia of chronic disease, hypothyroidism, debility, dementia, malnu trition. SOCIAL HISTORY: Lives in a board and care facility. No history of smoking or drinking. FAMILY HISTORY: Unobtainable. REVIEW OF SYSTEMS: Unobtainable. PHYSICAL EXAMINATION: VITAL SIGNS: Blood pressure 147/69, pulse 110 and regular, respirations of 18, temperature of 98.2 degrees, 98% saturation on 2 liters. HEENT: She is normocephalic, atraumatic, anicteric, acyanotic. On examination she is somnolent and difficult to arouse. CHEST: Distant breath sounds throughout both lung galaviz. Less breath sounds on her right side com pared to the left side. COR: S1, S2, without S3, S4, murmur, gallop, rub. Normal rate, normal rhythm. ABDOMEN: Grossly benign. NEUROLOGIC: Unable to participate in any conversation with me, difficult to arouse her, does not fish ve any major focal findings on examination. Laboratory tests have been reviewed. ASSESSMENT AND PLAN: I will contact family members. Patient is a DO NOT RESUSCITATE. Dr. Ramon fish s spoken to family members about hospice care when patient is discharged from the hospital. I will obtain more information about the patient's background and social history. Family is understanding of her underlying major medical problems and what their expectations are for an acceptable quality o f life and rehospitalizations in the future. Goals of care will be discussed with family members in addition. Based upon her PPI score that I can obtain at this time and estimate of about 10% ____ emily t her overall prognosis for survival is less than 2 months. Recommendation at this time is controlling her symptoms, considering hospice care as soon as patient has a thoracentesis, whether or not the patient's family wants to take her home, but I also think t he patient qualifies for in-house general inpatient care if treatment is held at this time and famil y members just want to pursue comfort measures. There are no psychosocial or spiritual issues that I can address at this time until I speak with family members and in reviewing patient's chart insofar as legal issues and surrogate issues have been addressed by Dr. Navarro, as the patient's son is th e decision maker on the patient's behalf. There is no POLST form immediately available in patient's chart that should be addressed prior to discharge. Dictated By: ANDRWE DAVIES MD, LP/AYAKA Conf#: [id number] DID#: [id number]
--- NOTE | 2016-12-12 12:04 | RADRPT ---
PROCEDURE: US guided right thoracentesis. CLINICAL INDICATION: Shortness of breath. Right pleural effusion. TECHNIQUE: Prior to the procedure, informed consent was obtained. The risks, benefits, and alternatives were e xplained to the patient or the patient's family, including but not limited to bleeding, infection, p ain, visceral or vascular damage, shock, pneumothorax, chest tube placement, air embolism, and . The patient or the patient's family understood the risks and the alternatives and wished to proce ed with the study. Informed written consent was obtained. A procedural pause was performed. The patient's name, date of , and procedure to be performed were verified. Ultrasound of the right hemithorax was performed in the axial and sagittal planes. A right pleural e ffusion is noted. Utilizing ultrasound guidance, optimal location for entry to the pleural cavity wa s ascertained. The overlying skin was prepped and draped in the usual sterile fashion. Approximate ly 10 ml of 1% Xylocaine was injected locally for pain control. Using ultrasound guidance, a 5-Fren Yueh catheter was introduced into the right pleural space without difficulty. Fluid was aspirated . COMPARISON: None. FINDINGS: Initial ultrasound demonstrates fluid in the right pleural space. Approximately 0.300 liters of ser ous fluid was aspirated and sent to the laboratory. IMPRESSION: 1. Satisfactory ultrasound-guided right thoracentesis. RPTAT: QQ .Nasim Thomas MD, Date Time Electronically viewed and signed by .Nasim Thomas MD, on 12/12/2016 12:04 .R/
--- NOTE | 2016-12-12 12:08 | RADRPT ---
PROCEDURE: XR Chest. CLINICAL INDICATION: Shortness of breath. Post right thoracentesis. TECHNIQUE: Single frontal view. COMPARISON: 12/09/2016. FINDINGS: There is patchy air space disease throughout the right mid and lower lung zones, unchanged. There i s mild left basilar atelectasis, unchanged. The lungs are otherwise clear. The heart is enlarged. There is calcification in the aorta consistent with atherosclerosis. There is no pleural effusion or pneumothorax. There is free air in the abdomen. IMPRESSION: 1. Smaller right pleural effusion. 2. No other change from 12/09/2016. RPTAT: QQ .Nasim Thomas MD, MD Date Time Electronically viewed and signed by .Nasim Thomas MD, MD on 12/12/2016 12:08 .R/
[2016-12-12] MEDS ORDERED: POTASSIUM PHOSPHATE 40 MEQ in SOD CHLORIDE 0.9% 250 ML IVPB ONE (13:00)
[2016-12-12 13:56] LABS: FLUID TYPE THORACENTHESIS
[2016-12-12 13:57] LABS: FLUID APPEARANCE HAZY; FLUID RBC EST 0; FLUID WBC'S 338 /cmm
[2016-12-12 14:50] LABS: FLUID LYMPHOCYTES 81 %; FLUID MONOCYTES 6 %; FLUID NEUTROPHILS 6 %
[2016-12-12] MEDS ORDERED: VANCOMYCIN 750 MG in SOD CHLORIDE 0.9% 150 ML IVPB SCH (15:00)
--- NOTE | 2016-12-12 15:03 | PN ---
Date/Time of Note Date/Time of Note DATE: 12/12/16 TIME: 14:59 Assessment/Plan VTE Prophylaxis VTE Prophylaxis Intervention: SCD's Lines/Catheters IV Catheter Type (from Nrs): Peripheral IV Assessment/Plan Chief Complaint/Hosp Course 1. Hypoxic resp insufficiency 2/2 #2 2. Moderate right-sided pleural effusion with probable underlying pneumonia likely causing #1 3. Sepsis 2/2 UTI and pneumonia (Fever/ leucopenia / tachycardia): improving 4. Moderate to large pneumoperitoneum likely secondary to PEG placement 5. Chronic anemia 2/2 malnutrition and chronic disease, brendan 6. Severe dementia, stable patient currently appears at baseline. 7. Hypothyroidism continue Synthroid. 8. Persistent multi-organism UTI 9. Hydronephrosis with bladder distention likely secondary to neurogenic bladder 10. Hypocalcemia PLAN: * Continue Levaquin for pneumonia and UTI, DC vancomycin * Okay with surgery to resume G-tube feeds today * Thoracentesis done today * Leave mcallister in for now and continue oxybutynin. Repeat USS in a few days to assess hydronephrosis. * Replace electrolytes DVT and GI prophylaxis, SCDs, H2 navneet Patient's CODE STATUS is DNR, prognosis discussed with patient's son plan is for hospice eval Problems: Subjective 24 Hr Interval Summary Subjective hx not possible: pt non-verbal Exam/Review of Systems Vital Signs Vitals Vital Signs Date Time Temp Pulse Resp B/P Pulse Ox O2 Delivery O2 Flow Rate FiO2 12/12/16 08:25 Nasal Cannula 2.0 12/12/16 07:55 98.2 110 18 147/69 98 Intake and Output 12/11/16 12/11/16 12/12/16 15:00 23:00 07:00 Intake Total 450 ml 350 ml 1110 ml Output Total 650 ml 1360 ml Balance 450 ml -300 ml -250 ml Exam Constitutional: non-verbal Respiratory: clear to auscultation Cardiovascular: regular rate and rhythm Gastrointestinal: soft, No distended Musculoskeletal: nl extremities to inspection Results Result Diagram: 12/12/16 0555 12/12/16 0555 Results 24 hrs Laboratory Tests Test 12/12/16 05:55 12/12/16 10:15 12/12/16 12:12 White Blood Count 8.7 Red Blood Count 2.85 L Hemoglobin 8.5 L Hematocrit 26.0 L Mean Corpuscular Volume 91.2 Mean Corpuscular Hemoglobin 29.8 Mean Corpuscular Hemoglobin Concent 32.7 Red Cell Distribution Width 16.8 H Platelet Count 350 Mean Platelet Volume 10.2 Neutrophils % 74.8 Lymphocytes % 18.5 Monocytes % 4.6 Eosinophils % 1.3 Basophils % 0.1 Nucleated Red Blood Cells % 0.0 Neutrophils # 6.5 Lymphocytes # 1.6 Monocytes # 0.4 Eosinophils # 0.1 Basophils # 0.0 Nucleated Red Blood Cells # 0.0 Sodium Level 135 Potassium Level 3.4 L Chloride Level 102 Carbon Dioxide Level 24 Anion Gap 12 Blood Urea Nitrogen 4 L Creatinine 0.47 Glucose Level 124 # Calcium Level 6.5 L Phosphorus Level 1.2 L Magnesium Level 1.9 Body Fluid Type THORACENTHESIS Body Fluid Volume 300.0 Body Fluid Color YELLOW Body Fluid Appearance HAZY Body Fluid WBC 338 Body Fluid RBC 0 Body Fluid Neutrophils % 6 Body Fluid Lymphocytes (%) 81 Body Fluid Monocytes % 6 Body Fluid Other Cells (%) 7 Vancomycin Level Trough 7.1 L Medications Medications Current Medications Ondansetron HCl 4 mg 4 mg Q6H PRN IV NAUSEA AND/OR VOMITING; Start 12/09/16 at 04:00 Fluconazole 100 ml @ 100 mls/hr Q24H IVPB Last administered on 12/12/16 11:06 ; Admin Dose 100 MLS/HR; Start 12/09/16 at 10:30 Levofloxacin/ Dextrose 50 ml @ 50 mls/hr Q24H IVPB Last administered on 22:33; Admin Dose 50 MLS/HR; Start 12/09/16 at 23:00 Dextrose/Sodium Chloride (D5-1/2ns) 1,000 ml @ 60 mls/hr [id number] IV Last administered on 12/12/16 03:44; Admin Dose 60 MLS/HR; Start 12/11/16 at 07:30 Collagenase (Santyl) 1 applic DAILY TOP Last administered on 12/11/16 14:27; Admin Dose 1 APPLIC; Start 12/11/16 at 11:30 Collagenase 1 applic 1 applic PRN PRN TOP WOUND CARE; Start 12/11/16 at 11:00 Potassium Phosphate 40 meq/ Sodium Chloride 259.0909 ml @ 64.773 m... ONCE ONCE IVPB Last administered on 12/12/16 14:44; Admin Dose 64.773 MLS/HR; Start 12/12/16 at 13:00; Stop 12/12/16 at 16:59 Vancomycin HCl/ Sodium Chloride (Vancocin/NS) 150 ml @ 75 mls/hr Q24H IVPB Last administered on 12/12/16 14:45; Admin Dose 75 MLS/HR; Start 12/12/16 at 15: 00 EMMA VILLA December 12, 2016 15:03
[2016-12-12 19:37] VITALS: BP 122/85; RESP 18
[2016-12-12] MEDS: LEVOFLOXACIN 250MG/D5W (PMX) 50 ML IVPB SCH (23:08)
[2016-12-13 06:23] LABS: ADD SCAN DIFF NO
[2016-12-13 06:35] LABS: BASOPHILS % 0.1 % (0.0-2.0); EOSINOPHILS # 0.1 10^3/ul (0.0-0.5); HEMATOCRIT 25.9 % (37.0-47.0); HEMOGLOBIN 8.4 g/dl (12.0-16.0); LYMPHOCYTES # 1.1 10^3/ul (0.8-2.9); LYMPHOCYTES % 12.4 % (15.0-51.0); MEAN CORPUSCULAR HEMOGLOBIN 29.3 pg (29.0-33.0); MEAN CORPUSCULAR HGB CONC 32.4 g/dl (32.0-37.0); MEAN CORPUSCULAR VOLUME 90.2 fl (82.0-101.0); MEAN PLATELET VOLUME 10.8 fl (7.4-10.4); MONOCYTE # 0.4 10^3/ul (0.3-0.9); MONOCYTES % 4.6 % (0.0-11.0); NEUTROPHIL # 7.2 10^3/ul (1.6-7.5); NEUTROPHILS % 81.1 % (39.0-77.0); PLATELET COUNT 329 10^3/UL (140-415); RED BLOOD COUNT 2.87 10^6/ul (4.20-5.40); RED CELL DISTRIBUTION WIDTH 17.1 % (11.5-14.5); WHITE BLOOD COUNT 8.8 10^3/ul (4.8-10.8)
[2016-12-13 06:56] LABS: CALCIUM 6.1 mg/dl (8.4-10.2); CREATININE 0.49 mg/dl (0.44-1.00); POTASSIUM 3.6 mmol/L (3.5-5.1)
[2016-12-13 06:59] LABS: MAGNESIUM 1.5 mg/dl (1.7-2.5); PHOSPHORUS 1.6 mg/dl (2.5-4.9)
[2016-12-13 07:21] VITALS: BP 126/60; RESP 18
[2016-12-13] MEDS: COLLAGENASE 30 GM TUBE TOP SCH (08:46)
[2016-12-13] MEDS: DEXTROSE 5%-0.45% NACL 1,000 ML IV SCH (09:30)
[2016-12-13] MEDS ORDERED: MAGNESIUM SULFATE 4 GM/100 ML 100 ML IVPB ONE (11:00)
[2016-12-13] MEDS: FLUCONAZOLE 200 MG/NS (PMX) 100 ML IVPB SCH (11:09)
[2016-12-13] MEDS: POTASSIUM PHOSPHATE 20 MEQ in SOD CHLORIDE 0.9% 250 ML IVPB SCH ×2 (12:32→15:45)
--- NOTE | 2016-12-13 12:50 | PN ---
Date/Time of Note Date/Time of Note DATE: 12/13/16 TIME: 12:48 Assessment/Plan Lines/Catheters IV Catheter Type (from Nrs): Peripheral IV Patricio in Place (from Nrs): Yes Assessment/Plan Assessment/Plan 86-year-old female with pneumoperitoneum status post PEG placement * This can be an expected finding after PEG placement. * The patient has multiple other problems including urinary tract infection, pneumonia and pleural effusions which may be contributing to her fever. Patient does not have leukocytosis or left shift. * CT scan images were reviewed it does appear that the PEG is in place and not through the colon. * Gastrografin KUB shows PEG tube in good position and without leak * Patient is DNR * I discussed the above with the patient's son, Renaldo, who is the spokesperson and decision maker. He reconfirmed the patient's DNR status. He stated that he does not want surgical intervention, if required. My discussion was witnessed by the nurse. * Tolerating tube feeds. Advance to goal as tolerated The above was discussed with the primary care team and patient's son at the bedside. Further recommendations will be made based on patient's clinical course Subjective 24 Hr Interval Summary Tolerating tube feeds. S/P Thoracentesis. Afebrile. Exam/Review of Systems Vital Signs Vitals Vital Signs Date Time Temp Pulse Resp B/P Pulse Ox O2 Delivery O2 Flow Rate FiO2 12/13/16 07:21 97.9 110 18 126/60 98 12/12/16 20:00 Nasal Cannula 2.0 Intake and Output 12/12/16 12/12/16 12/13/16 15:00 23:00 07:00 Intake Total 100 ml 1069.0909 ml 750 ml Output Total 700 ml 1050 ml Balance 100 ml 369.0909 ml -300 ml Exam Free Text/Dictation GENERAL: Demented, in bed comfortable. ABDOMEN: Soft, bowel sounds present, nondistended, nontender Results Result Diagram: 12/13/16 0550 12/13/16 0550 LUIS ALBERTO BEAR MD December 13, 2016 12:50
--- NOTE | 2016-12-13 17:41 | DS ---
DATE OF ADMISSION: 12/10/2016 DATE OF DISCHARGE: 12/13/2016 DISCHARGE DIAGNOSES: 1. Hypoxic respiratory insufficiency secondary to right-sided pleural effusion status post thoracen tesis, now stable. 2. Sepsis secondary to urinary tract infection and pneumonia, now resolved. 3. Pneumoperitoneum secondary to PEG placement, stable, now resume on PEG tube feeds. 4. Severe dementia. The patient discharged home with hospice care secondary to poor prognosis. 5. Neurogenic bladder. Continue Patricio catheter. HOSPITAL COURSE: The patient is an 86-year-old female with history of severe dementia, hypothyroidi sm, hypertension, and anemia of chronic disease. The patient presents with hypoxia. The patient fish d a right pleural effusion that was noted on arrival. She did have a thoracentesis with 0.3 liters removed. The patient did require oxygen. The patient did have a pneumoperitoneum noted on CT abdom en and pelvis as well as chest x-ray. Surgery did consult on the patient, and it was felt that this was secondary to percutaneous endoscopic gastrostomy tube placement. The patient's PEG tube feeds were resumed, and she tolerated the feeds. The patient has severe dementia, and it was felt that th e patient would benefit from hospice at home. [facility] hospice was consulted, and the patient did cons ent to take the patient home with hospice. They did not want further aggressive care. On the day o f discharge, the patient's vitals, labs, and physical exam were stable. Of note, she did not requir e her home blood pressure medications. The patient had no longer any further signs of sepsis. Of n ote, she did have a UA that suggested sepsis on arrival, but the patient had no white count and no f urther fever. It was felt that she did not need any further antibiotics. Of note, there was also q uestion of whether the patient had pneumonia in the right lung. This would have been an aspiration pneumonia, most likely, secondary to her severe dementia. The patient was treated with antibiotics for this, once again, and once again she had no further signs of sepsis on the day of discharge. On ce again, on the day of discharge, the patient's vitals, labs, and physical exam were fair. There a re no further acute issues, and questions were answered. CONDITION ON DISCHARGE: Fair. DISPOSITION: To home with hospice. MEDICATIONS: Per hospice. The patient does not need to resume blood pressure medications as her BP was stable without any medication at this time. She does not need to resume any Bactrim. Once aga in, further medications per hospice. FOLLOWUP: The patient is to follow up with physicians and nurses of [facility] Greater than 30 minutes was spent coordinating discharge of patient. Dictated By: EMMA VILLA MD BS/NTS Conf#: [id number] DID#: [id number]
== END 2016-12-13 19:15 | disposition hospice, home (50) | DRG 871 ==
LOC: E/R 20:54 → MS2 21:36 → OBSVTOIN 12-10 20:05 → MS2 12-11 21:21
PROVIDERS: ADMIT Family Medicine; ATTEND Family Medicine
PROC: 0W993ZX Drainage of Right Pleural Cavity, Percutaneous Approach, Diagnostic (ICD-10-PCS; principal; 2016-12-12)
DX: A41.9 Sepsis, unspecified organism (principal); J18.9 Pneumonia, unspecified organism; J90 Pleural effusion, not elsewhere classified; E46 Unspecified protein-calorie malnutrition; J96.11 Chronic respiratory failure with hypoxia; K66.8 Other specified disorders of peritoneum; F03.90 Unspecified dementia, unspecified severity, without behavioral disturbance, psychotic disturbance, mood disturbance, and anxiety; N13.30 Unspecified hydronephrosis; N39.0 Urinary tract infection, site not specified; Z68.1 Body mass index [BMI] 19.9 or less, adult; E83.51 Hypocalcemia; I10 Essential (primary) hypertension; E03.9 Hypothyroidism, unspecified; D63.8 Anemia in other chronic diseases classified elsewhere; N31.9 Neuromuscular dysfunction of bladder, unspecified; Z66 Do not resuscitate; Z93.1 Gastrostomy status
CPT/HCPCS: 32555; 36415; 71010; 74000; 74176; 80048; 80053; 80202; 81001; 81003; 82565; 82962; 83605; 83735; 84100; 84484; 84520; 85025; 85610; 85730; 87040; 87070; 87081; 87086; 88104; 88305; 89050; 93005; 96374; G0378; J0610; J1956; J3370; J3480; J7030; J7042; J7050